=== PATIENT | female | born 1965 | race Caucasian/White ===

== ENCOUNTER 2022-12-23 13:30 | Outpatient (OUT) | payer OTHER, SELFPAY | END 2022-12-23 13:31 | LOC: WC 13:30 | PROVIDERS: PCP Family Medicine; Visit Provider Podiatrist Foot & Ankle Surgery | DX: L97.421 Non-pressure chronic ulcer of left heel and midfoot limited to breakdown of skin (principal) | CPT/HCPCS: 97605 ==

== ENCOUNTER 2023-01-27 11:02 | Outpatient (OUT) | payer OTHER, SELFPAY ==
--- NOTE | 2023-01-27 11:44 | XR_ITS ---
The [address] [address] Patient Name: VASU ABURTO MRN: [id number] date: 1965 Sex: F Assigned Patient Location: Current Patient Location: Accession/Order Number: [id number] Exam Date: 01/27/2023 11:44 Report Date: 01/27/2023 13:57 At the request of: MERCEDES RETANA Procedure: XR ankle LT min 3V EXAM: XR ankle LT min 3V HISTORY: LEFT ANKLE PAIN COMPARISON: 07/17/2022. TECHNIQUE: 3 views left ankle. FINDINGS: Diffuse soft tissue swelling and edema left lower leg and ankle. There is old chronic deformity and angulation of the distal tibia and fibula again seen with slight increase in overall apex medial angulation/lateral displacement of the distal fragments compared to June 2022 but with slightly increased but incomplete bony healing. Thickened soft tissues overlying the medial malleolus. Possible wound over the posterior healed but significantly improved compared to prior. No definite active bone destruction or acute fracture. Severe degenerative change and remodeling at the tibiotalar and subtalar joints and prominent collapse of the midfoot arch/pes planus. XR/XR ankle LT min 3V IMPRESSION: Extensive chronic bony changes as detailed with no acute bony process seen. Diffuse soft tissue wound and edema. CT or MRI could be obtained if indicated. Electronically authenticated by: JHOANA ABARCA Date: 01/27/2023 13:57
== END 2023-01-27 11:03 | disposition home or self-care (01) ==
LOC: WC 11:02
PROVIDERS: PCP Family Medicine; Visit Provider Podiatrist Foot & Ankle Surgery
DX: M25.572 Pain in left ankle and joints of left foot (principal); L97.421 Non-pressure chronic ulcer of left heel and midfoot limited to breakdown of skin; L97.922 Non-pressure chronic ulcer of unspecified part of left lower leg with fat layer exposed
CPT/HCPCS: 11042; 73610

== ENCOUNTER 2023-02-17 13:44 | Outpatient (OUT) | payer OTHER, SELFPAY | END 2023-02-17 13:45 | disposition home or self-care (01) | LOC: WC 13:45 | PROVIDERS: PCP Family Medicine; Visit Provider Podiatrist Foot & Ankle Surgery | DX: L97.922 Non-pressure chronic ulcer of unspecified part of left lower leg with fat layer exposed (principal); M65.072 Abscess of tendon sheath, left ankle and foot; B96.89 Other specified bacterial agents as the cause of diseases classified elsewhere; L97.421 Non-pressure chronic ulcer of left heel and midfoot limited to breakdown of skin | CPT/HCPCS: 10061; 97605 ==

== ENCOUNTER 2023-03-03 13:35 | Outpatient (OUT) | payer OTHER, SELFPAY | END 2023-03-03 13:36 | disposition home or self-care (01) | LOC: WC 13:35 | PROVIDERS: PCP Family Medicine; Visit Provider Podiatrist Foot & Ankle Surgery | DX: L97.421 Non-pressure chronic ulcer of left heel and midfoot limited to breakdown of skin (principal); L97.922 Non-pressure chronic ulcer of unspecified part of left lower leg with fat layer exposed | CPT/HCPCS: 97605 ==

== ENCOUNTER 2023-03-24 13:53 | Outpatient (OUT) | payer OTHER, SELFPAY | END 2023-03-24 13:54 | disposition home or self-care (01) | LOC: WC 13:53 | PROVIDERS: PCP Family Medicine; Visit Provider Podiatrist Foot & Ankle Surgery | DX: L97.421 Non-pressure chronic ulcer of left heel and midfoot limited to breakdown of skin (principal); L97.922 Non-pressure chronic ulcer of unspecified part of left lower leg with fat layer exposed | CPT/HCPCS: 11042; 97605 ==

== ENCOUNTER 2023-04-14 12:25 | Outpatient (REF) | payer OTHER, SELFPAY | END 2023-04-14 12:26 | disposition home or self-care (01) | LOC: LAB 12:25 | PROVIDERS: PCP Family Medicine; Visit Provider Podiatrist Foot & Ankle Surgery | DX: L03.116 Cellulitis of left lower limb (principal); L97.929 Non-pressure chronic ulcer of unspecified part of left lower leg with unspecified severity | CPT/HCPCS: 11042; 87070; 87150; 87186; 97605 ==

== ENCOUNTER 2023-04-14 14:51 | Outpatient (OUT) | payer OTHER, SELFPAY | END 2023-04-14 14:52 | disposition home or self-care (01) | LOC: WC 14:52 | PROVIDERS: PCP Family Medicine; Visit Provider Podiatrist Foot & Ankle Surgery | DX: L97.421 Non-pressure chronic ulcer of left heel and midfoot limited to breakdown of skin (principal); R60.1 Generalized edema | CPT/HCPCS: 11042; 97605 ==

== ENCOUNTER 2023-04-21 15:45 | Outpatient (OUT) | payer OTHER, SELFPAY | END 2023-04-21 15:46 | disposition home or self-care (01) | LOC: WC 15:45 | PROVIDERS: PCP Family Medicine; Visit Provider Podiatrist Foot & Ankle Surgery | DX: L97.421 Non-pressure chronic ulcer of left heel and midfoot limited to breakdown of skin (principal); L97.922 Non-pressure chronic ulcer of unspecified part of left lower leg with fat layer exposed | CPT/HCPCS: 11042; A6213 ==

== ENCOUNTER 2023-04-29 16:05 | Outpatient (OUT) | payer OTHER, SELFPAY | END 2023-04-29 16:06 | disposition home or self-care (01) | LOC: WC 16:05 | PROVIDERS: PCP Family Medicine; Visit Provider Podiatrist Foot & Ankle Surgery | DX: L97.421 Non-pressure chronic ulcer of left heel and midfoot limited to breakdown of skin (principal); L97.922 Non-pressure chronic ulcer of unspecified part of left lower leg with fat layer exposed | CPT/HCPCS: 11042; A6213 ==

== ENCOUNTER 2023-05-21 12:59 | Outpatient (OUT) | payer OTHER, SELFPAY ==
--- NOTE | 2023-05-21 | XR_ITS ---
The [address] [address] Patient Name: VASU ABURTO MRN: [id number] date: 1965 Sex: F Assigned Patient Location: Current Patient Location: Accession/Order Number: [id number] Exam Date: 05/21/2023 13:35 Report Date: 05/22/2023 07:46 At the request of: FUNMI SHABAZZ Procedure: XR foot LT min 3V PROCEDURE: XR ankle LT min 3V, XR tibia fibula LT 2V, XR foot LT min 3V COMPARISON: 01/27/2023 HISTORY: LEFT ANKLE PAIN FINDINGS: BONES:Again demonstrated is severe posttraumatic and degenerative changes of the ankle and foot. There is remote fracture of the distal fibular diaphysis with apex medial angulation of 29 degrees. There is medial subluxation of the tibia in relation to the talus measuring 2.3 cm. Periosteal reaction is observed. Anterior subluxation of the tibia in relation to the talus measuring 2 cm. Severe degenerative changes of the hindfoot with pes planus, marked bony remodeling of the talus and degenerative change. No new fracture or dislocation of the leg foot or ankle. Diffuse demineralization suggests underlying osteopenia. Focal sclerosis of the medial cuneiform, nonspecific SOFT TISSUES:Increased soft tissues likely related to obesity. Extensive vascular calcifications EFFUSION:None visible. OTHER: Negative. XR/XR foot LT min 3V IMPRESSION: No acute fracture Severe degenerative changes as detailed above Electronically authenticated by: SAL ARAIZA Date: 05/22/2023 07:46
--- NOTE | 2023-05-21 | XR_ITS ---
The [address] [address] Patient Name: VASU ABURTO MRN: [id number] date: 1965 Sex: F Assigned Patient Location: Current Patient Location: Accession/Order Number: [id number] Exam Date: 05/21/2023 13:35 Report Date: 05/22/2023 07:46 At the request of: FUNMI SHABAZZ Procedure: XR tibia fibula LT 2V PROCEDURE: XR ankle LT min 3V, XR tibia fibula LT 2V, XR foot LT min 3V COMPARISON: 01/27/2023 HISTORY: LEFT ANKLE PAIN FINDINGS: BONES:Again demonstrated is severe posttraumatic and degenerative changes of the ankle and foot. There is remote fracture of the distal fibular diaphysis with apex medial angulation of 29 degrees. There is medial subluxation of the tibia in relation to the talus measuring 2.3 cm. Periosteal reaction is observed. Anterior subluxation of the tibia in relation to the talus measuring 2 cm. Severe degenerative changes of the hindfoot with pes planus, marked bony remodeling of the talus and degenerative change. No new fracture or dislocation of the leg foot or ankle. Diffuse demineralization suggests underlying osteopenia. Focal sclerosis of the medial cuneiform, nonspecific SOFT TISSUES:Increased soft tissues likely related to obesity. Extensive vascular calcifications EFFUSION:None visible. OTHER: Negative. XR/XR tibia fibula LT 2V IMPRESSION: No acute fracture Severe degenerative changes as detailed above Electronically authenticated by: SAL ARAIZA Date: 05/22/2023 07:46
--- NOTE | 2023-05-21 | XR_ITS ---
The [address] [address] Patient Name: VASU ABURTO MRN: [id number] date: 1965 Sex: F Assigned Patient Location: Current Patient Location: Accession/Order Number: [id number] Exam Date: 05/21/2023 13:35 Report Date: 05/22/2023 07:46 At the request of: FUNMI SHABAZZ Procedure: XR ankle LT min 3V PROCEDURE: XR ankle LT min 3V, XR tibia fibula LT 2V, XR foot LT min 3V COMPARISON: 01/27/2023 HISTORY: LEFT ANKLE PAIN FINDINGS: BONES:Again demonstrated is severe posttraumatic and degenerative changes of the ankle and foot. There is remote fracture of the distal fibular diaphysis with apex medial angulation of 29 degrees. There is medial subluxation of the tibia in relation to the talus measuring 2.3 cm. Periosteal reaction is observed. Anterior subluxation of the tibia in relation to the talus measuring 2 cm. Severe degenerative changes of the hindfoot with pes planus, marked bony remodeling of the talus and degenerative change. No new fracture or dislocation of the leg foot or ankle. Diffuse demineralization suggests underlying osteopenia. Focal sclerosis of the medial cuneiform, nonspecific SOFT TISSUES:Increased soft tissues likely related to obesity. Extensive vascular calcifications EFFUSION:None visible. OTHER: Negative. XR/XR ankle LT min 3V IMPRESSION: No acute fracture Severe degenerative changes as detailed above Electronically authenticated by: SAL ARAIZA Date: 05/22/2023 07:46
== END 2023-05-21 13:00 | disposition home or self-care (01) ==
LOC: WC 12:59
PROVIDERS: PCP Family Medicine; Visit Provider Physician Assistant
DX: L97.421 Non-pressure chronic ulcer of left heel and midfoot limited to breakdown of skin (principal); L97.922 Non-pressure chronic ulcer of unspecified part of left lower leg with fat layer exposed; M79.672 Pain in left foot; M25.572 Pain in left ankle and joints of left foot; M79.662 Pain in left lower leg
CPT/HCPCS: 11043; 29445; 73590; 73610; 73630

== ENCOUNTER 2023-05-25 14:26 | Outpatient (OUT) | payer OTHER, SELFPAY | END 2023-05-25 14:27 | disposition home or self-care (01) | LOC: WC 14:26 | PROVIDERS: PCP Family Medicine; Visit Provider Podiatrist Foot & Ankle Surgery | DX: L97.421 Non-pressure chronic ulcer of left heel and midfoot limited to breakdown of skin (principal); L97.922 Non-pressure chronic ulcer of unspecified part of left lower leg with fat layer exposed | CPT/HCPCS: 29445; A6021 ==

== ENCOUNTER 2023-05-29 09:09 | Outpatient (OUT) | payer OTHER, SELFPAY | END 2023-05-29 09:10 | disposition home or self-care (01) | LOC: WC 09:10 | PROVIDERS: PCP Family Medicine; Visit Provider Podiatrist Foot & Ankle Surgery | DX: L97.421 Non-pressure chronic ulcer of left heel and midfoot limited to breakdown of skin (principal); L97.922 Non-pressure chronic ulcer of unspecified part of left lower leg with fat layer exposed | CPT/HCPCS: 29445; A6213 ==

== ENCOUNTER 2023-06-09 14:01 | Outpatient (OUT) | payer OTHER, SELFPAY ==
--- OUTSIDE RECORDS SUMMARY | 2023-07-07 22:27 | XMS_ITS | CCD ---
Author Name Unknown Address [address] [place] [address] Organization [facility] Care Team Providers Care Business Education Professor Name Role Phone AIDEN ., DR ANDREWS Admitting Unavailable HOY ., DR ANDREWS Consulting Unavailable HOY ., DR ANDREWS Primary Care Unavailable HOY ., DR ANDREWS Attending Unavailable HOY ., DR ANDREWS Consulting Unavailable ADRYANANDER, PETER uSdarshan Procedure Practitioner Unava ilable HOY ., DR ANDREWS Primary Care Unavailable HOY ., DR ANDREWS Admitting Unavailable HOY ., DR ANDREWS Attending Unavailable BAKER ., DR CHANDNI Jasso Consulting Unavailable HOY ., DR ANDREWS Procedure Practitioner Unavail able TAMPA, DR SAL Jones Consulting Unavailable NADERELesvia, DR TALON Rodríguez Consulting Unavailable RAYMON PAREDES Consulting Unavailable ADRYANANDER, MERCEDES Heaton Consulting Unavailable GATJULIO CÉSAR CHOU Consulting Unavailable TIAMANDY Bear Consulting Unavailable TRAE SANCHEZ Consulting Unavailable SHAIKH Cruzito EDOUARD Consulting Unavailable MARILYNN, KILLIAN Consulting Unavailable SAL DALTON Consulting Unavailable REMIGIO, RANGEL Consulting Unavailable SANDY .ASIA Consulting Unavailable GEMSADIE, RIZWAN Consulting Unavailable STACYY ., DR ANDREWS Consulting Unavailable HOY ., DR ANDREWS Primary Care Unavailable HOY ., DR ANDREWS Admitting Unavailable HOY ., DR ANDREWS Attending Unavailable HOY ., DR ANDREWS Consulting Unavailable HOY ., DR ANDREWS Admitting Unavailable HOY ., DR ANDREWS Primary Care Unavailable HOY ., DR ANDREWS Attending Unavailable HOY ., DR ANDREWS Admitting Unavailable HOY ., DR ANDREWS Consulting Unavailable HOY ., DR ANDREWS Primary Care Unavailable HOY ., DR ANDREWS Attending Unavailable MERCEDES RETANA Attending Unavailable MERCEDES RETANA Admitting Unavailable HOY ., DR ANDREWS Primary Care Unavailable HOY ., DR ANDREWS Primary Care Unavailable HOY ., DR ANDREWS Primary Care Unavailable HOY ., DR ANDREWS Admitting Unavailable HOY ., DR ANDREWS Attending Unavailable HOY ., DR ANDREWS Consulting Unavailable MELE, FUNMI Admitting Unavailable HOY ., DR ANDREWS Primary Care Unavailable MELE, FUNMI Attending Unavailable HIGHLANDER, PETER D Admitting Unavailable HIGHLANDER, PETER D Attending Unavailable HOY ., DR ANDREWS Primary Care Unavailable HIGHLANDER, PETER D Attending Unavailable HIGHLANDER, PETER D Admitting Unavailable HOY ., DR ANDREWS Primary Care Unavailable HOY ., DR ANDREWS Primary Care Unavailable HIGHLANDER, PETER D Admitting Unavailable HIGHLANDER, PETER D Attending Unavailable ZIEBER, DR YONIS Lakhani Consulting Unavailable HIGHLANDER, PETER D Consulting Unavailable HIGHLANDER, PETER D Admitting Unavailable HOY ., DR ANDREWS Primary Care Unavailable HIGHLANDER, PETER D Attending Unavailable HIGHLANDER, PETER D Attending Unavailable HIGHLANDER, PETER D Admitting Unavailable HOY ., DR ANDREWS Primary Care Unavailable HIGHLANDER, PETER D Attending Unavailable HIGHLANDER, PETER D Admitting Unavailable HOY ., DR ANDREWS Primary Care Unavailable HOY ., DR ANDREWS Consulting Unavailable HOY ., DR ANDREWS Primary Care Unavailable HOY ., DR ANDREWS Admcheo Unavailable HOY ., DR ANDREWS Attending Unavailable HOY ., DR ANDREWS Consulting Unavailable HOY ., DR ANDREWS Primary Care Unavailable HOY ., DR ANDREWS Admitting Unavailable HOY ., DR ANDREWS Attending Unavailable PAY ., DR MARROQUIN Admitting Unavailable HOY ., DR ANDREWS Primary Care Unavailable PAY ., DR MARROQUIN Attending Unavailable GRECHNY ., SHARON FARNSWORTH Consulting UnavailMERCEDES Fan Consulting Unavailable HOY ., DR ANDREWS Consulting Unavailable HOY ., DR ANDREWS Admcheo Unavailable HOY ., DR ANDREWS Primary Care Unavailable HOY ., DR ANDREWS Attending Unavailable HIGHLANDER, PETER D Admitting Unavailable HIGHLANDER, PETER D Attending Unavailable HOY ., DR ANDREWS Primary Care Unavailable Allergies Allergy Classification Reported Allergen(s) Allergy Type Date of Onset Reaction(s) Facility (1 source) Amoxicillin Drug Allergy 02-21-2017 [facility] (2 sources) Meperidine Drug Allergy 08-01-2013 [facility] (2 sources) Morphine Drug Allergy 08-01-2013 [facility] (2 sources) Penicillins Drug allergy (disorder) 08-01-2013 [facility] (2 sources) Sulfonamides (Antibiotic) Drug allergy (disorder) 08-01-2013 [facility] Problems Active Problems Problem Classification Problem Date Documented Da te Episodic/Chronic Acute and unspecified renal failure (1 source) Acute kidney failure, unspecified; Translations: [ACUTE KIDNEY FAILURE UNSPECIFIED] Onset: 11-05-2022 Episodic Bacterial infection; unspecified site (7 sources) Gas gangrene; Translations: [Enterococcus as the cause of diseases classified elsewhere] Onset: 08-04-2022 Episodic Chronic ulcer of skin (7 sources) Non-pressure chronic ulcer of left heel and midfoot limited to breakdown of skin; Translations: [Non-pressure chronic ulcer of left heel and midfoot with fat layer exposed] Onset: 09-12-2022 Chronic Coronary atherosclerosis and other heart disease (1 source) Atherosclerotic heart disease of [place] coronary artery without angina pectoris; Translations: [ASHD WAINWRIGHT CA W/O ANGINA PECTORIS] Onset: 11-05-2022 Chronic Deficiency and other anemia (1 source) Anemia, unspecified; Translations: [ANEMIA UNSPECIFIED] Onset: 11-05-2022 Episodic Diabetes mellitus with complications (9 sources) Type 2 diabetes mellitus with hyperglycemia; Translations: [Type 2 diabetes mellitus with unspecified complications] Onset: 09-15-2022 Chronic Diabetes mellitus without complication (1 source) Type 2 diabetes mellitus without complications; Translations: [TYPE 2 DM WITHOUT COMPLICATIONS] Onset: 08-26-2022 Chronic Esophageal disorders (1 source) Gastro-esophageal reflux disease without esophagitis; Translations: [GERD WITHOUT ESOPHAGITIS] Onset: 11-05-2022 Chronic Essential hypertension (1 source) Essential (primary) hypertension; Translations: [ESSENTIAL PRIMARY HYPERTENSION] Onset: 11-20-2022 Chronic Infective arthritis and osteomyelitis (except that caused by tuberculosis or sexually transmitted disease) (6 sources) Chronic multifocal osteomyelitis, left ankle and foot; Translations: [Osteomyelitis, unspecified] Onset: 08-24-2022 Chronic Menopausal disorders (1 source) Hormone replacement therapy; Translations: [HORMONE REPLACEMENT THERAPY] Onset: 11-05-2022 Episodic Other aftercare (1 source) salvage determiner (current) use of aspirin; Translations: [SLOT SERVICE SPECIALIST CURRENT USE OF ASPIRIN] Onset: 11-05-2022 Episodic Other aftercare (1 source) half-way (current) use of oral hypoglycemic drugs; Translations: [DETENTION USE ORAL HYPOGLYCEMIC DX] Onset: 11-05-2022 Episodic Other aftercare (1 source) Other nursing home (current) drug therapy; Translations: [OTH SLOT SERVICE SPECIALIST CURRENT DRUG THERAPY] Onset: 11-05-2022 Episodic Other diseases of veins and lymphatics (1 source) Lymphedema, not elsewhere classified; Translations: [LYMPHEDEMA NOT ELSEWHERE CLASSIFIED] Onset: 11-20-2022 Chronic Other gastrointestinal disorders (1 source) Diarrhea, unspecified; Translations: [DIARRHEA UNSPECIFIED] Onset: 11-05-2022 Episodic Other inflammatory condition of skin (1 source) Arthropathic psoriasis, unspecified; Translations: [ARTHROPATHIC PSORIASIS UNSPECIFIED] Onset: 11-05-2022 Chronic Other nutritional; endocrine; and metabolic disorders (1 source) Body mass index (BMI) 40.0-44.9, adult; Translations: [BODY MASS INDEX BMI 40.0-44.9 ADULT] Onset: 11-05-2022 Chronic Other nutritional; endocrine; and metabolic disorders (1 source) Morbid (severe) obesity due to excess calories; Translations: [MORBID SEVERE OBES D/T EXCESS ERNST] Onset: 11-05-2022 Chronic Other skin disorders (1 source) Corns and callosities; Translations: [CORNS AND CALLOSITIES] Onset: 11-20-2022 Episodic Pulmonary heart disease (1 source) Personal history of pulmonary embolism; Translations: [PERSONAL HISTORY PULMONARY EMBOLISM] Onset: 11-05-2022 Episodic Residual codes; unclassified (1 source) Acquired absence of other specified parts of digestive tract; Translations: [ACQ ABSENCE OTH PART DIGESTV TRACT] Onset: 11-05-2022 Episodic Residual codes; unclassified (1 source) Acquired absence of both cervix and uterus; Translations: [ACQUIRED ABSENCE BOTH CERVIX AND UTERUS] Onset: 11-05-2022 Episodic Residual codes; unclassified (1 source) Family history of other diseases of the digestive system; Translations: [FAM HX OTH DISEASES DIGESTIVE SYS] Onset: 11-05-2022 Episodic Residual codes; unclassified (1 source) Family history of malignant neoplasm of breast; Translations: [FAMILY HX MALIG NEOPLASM OF BREAST] Onset: 11-05-2022 Episodic Residual codes; unclassified (1 source) Family history of malignant neoplasm of digestive organs; Translations: [FAM HX MALIG NEOPLASM DIGESTIV ORGN] Onset: 11-05-2022 Episodic Residual codes; unclassified (1 source) Family history of malignant neoplasm of trachea, bronchus and lung; Translations: [[facility] NEOPLSM TRACH BRON LNG] Onset: 11-05-2022 Episodic Residual codes; unclassified (1 source) Family history of malignant neoplasm of other genital organs; Translations: [[facility] NEOPLSM OTH GENIT ORGN] Onset: 11-05-2022 Episodic Residual codes; unclassified (1 source) Family history of malignant neoplasm of other organs or systems; Translations: [[facility] NEOPLASM OTH ORGN/SYS] Onset: 11-05-2022 Episodic Skin and subcutaneous tissue infections (6 sources) Cellulitis, unspecified; Translations: [Local infection of the skin and subcutaneous tissue, unspecified] Onset: 07-28-2022 Episodic Thyroid disorders (1 source) Hypothyroidism, unspecified; Translations: [HYPOTHYROIDISM UNSPECIFIED] Onset: 11-05-2022 Chronic Unclassified (1 source) CONTACT W/AND (SUSP) EXPOS COVID-19; Translations: [CONTACT W/AND (SUSP) EXPOS COVID-19] Onset: 11-05-2022 Unclassified (3 sources) COUGH, UNSPECIFIED; Translations: [COUGH, UNSPECIFIED] Onset: 07-05-2022 Urinary tract infections (3 sources) Urinary tract infection, site not specified; Translations: [UTI SITE NOT SPECIFIED] Onset: 07-17-2022 Episodic Past or Other Problems Problem Classification Problem Date Documented Da te Episodic/Chronic Fever of unknown origin (4 sources) Fever, unspecified; Translations: [FEVER UNSPECIFIED] Onset: 08-22-2022 Episodic Influenza (1 source) Influenza due to unidentified influenza virus with other respiratory manifestations; Translations: [FLU D/T UNIDENT FLU VIR RESP MANIF] Onset: 08-26-2022 Episodic Nausea and vomiting (1 source) Nausea with vomiting, unspecified; Translations: [NAUSEA WITH VOMITING UNSPECIFIED] Onset: 08-26-2022 Episodic Other aftercare (5 sources) salvage determiner (current) use of antibiotics; Translations: [SLOT SERVICE SPECIALIST CURRENT USE ANTIBIOTICS] Onset: 08-22-2022 Episodic Other aftercare (1 source) half-way (current) use of insulin; Translations: [DETENTION CURRENT USE OF INSULIN] Onset: 08-26-2022 Episodic Other connective tissue disease (4 sources) Pain in left foot; Translations: [PAIN IN LEFT FOOT] Onset: 07-08-2022 Episodic Residual codes; unclassified (1 source) Insomnia, unspecified; Translations: [INSOMNIA UNSPECIFIED] Onset: 08-26-2022 Episodic Unclassified (1 source) COUGH, UNSPECIFIED; Translations: [COUGH, UNSPECIFIED] Onset: 06-30-2022 Results Test Name Value Interpretation Reference Range Facil ity ACID FAST SMEAR AND CXon Acid Fast Culture Negative Normal [facility] Comment on above: Result Comment: No a kristin fast bacilli isolated after 6 weeks. Performed By: #### A FB ####[facility] [address] [place] [address]Dr. Wendie Frazier Acid Fast Smear Negative Normal [facility] Comment on above: Performed By: #### A FB ####[facility] [address] [place], [place] [address]Dr. Wendie Frazier AF[employer] Specimen Processing Tissue Grinding Normal [facility] Comment on above: Performed By: #### A FB ####[facility] [address] [place], [place] [address]Dr. Wendie Frazier BUNon 08-28-2022 Urea nitrogen [Mass/Vol] 19.0 mg/dL Critically high 7.0-18 .0 [facility] Comment on above: Performed By: #### B UN, CREA ####[facility] Sn[address] [place], [place] [address]Dr. Wendie Frazier CREATININEon 08-28-2022 Creatinine [Mass/Vol] 1.03 mg/dL Critically high 0.55-1.02 [facility] Comment on above: Performed By: #### B UN, CREA ####[facility] [address] [place], [place] [address]Dr. Wendie Frazier EGFR-AF BAHAMIAN >60 Normal >=60 [facility] Comment on above: Performed By: #### B UN, CREA ####[facility] Bix[address] [place], [place] [address]Dr. Wendie Frazier EGFR-NON AF BAHAMIAN 55 mL/min/1.73m2 Critically low >=60 [facility] Comment on above: Performed By: #### B UN, CREA ####[facility] Opvpwl[address] [place], [place] [address]Dr. Wendie Frazier VANCOMYCIN TROUGHon 08-28-19 VANCOMYCIN TROUGH 19.1 ug/ml Normal 5.0-20.0 [facility] Comment on above: Performed By: #### V ANCT ####[facility] [address] [place], [place] [address]Dr. Wendie Fraizer CULTURE URINEon 08-25-2022 CULTURE URINE Normal [facility] Comment on above: Performed By: #### U RCX ####[facility] [address] [place], [place] [address]Dr. Wendie Frazier BUNon 08-22-2022 Urea nitrogen [Mass/Vol] 20.0 mg/dL Critically high 7.0-18 .0 [facility] Comment on above: Performed By: #### C ARUN, BUN ####[facility] [address] [place], [place] [address]Dr. Wendie Frazier CBC AUTO DIFFon 08-22-2022 BASO # 0.1 103/ul Normal 0.0-0.1 [facility] Comment on above: Performed By: #### C BC ####[facility] Djvvpv[address] [place], [place] [address]Dr. Wendie Freddie Basophils/100 WBC (Bld) 0.9 % Normal 0.2-2.0 [facility] Comment on above: Performed By: #### C BC ####[facility] [address] [place], [place] [address]Dr. Wendie Frazier EO # 0.6 103/ul Normal 0.0-0.7 [facility] Comment on above: Performed By: #### C BC ####[facility] Y[address] [place], [place] [address]Dr. Wendie Freddie Eosinophils/100 WBC (Bld) 6.2 % Normal 0.9-7.0 [facility] Comment on above: Performed By: #### C BC ####[facility] [address] [place] [address]Dr. Wendie Frazier Erythrocyte distribution wid th (RBC) [Ratio] 15.7 % Critically high 11.0-15.0 [facility] Comment on above: Performed By: #### C BC ####[facility] [address] [place] [address]Dr. Wendie Frazier Hematocrit (Bld) [Volume fraction] 36.9 % Normal 3 6.0-48.0 [facility] Comment on above: Performed By: #### C BC ####[facility] Snzzxr[address]ay[address] [place], [place] [address]Dr. Wendie Freddie Hemoglobin (Bld) [Mass/Vol] 11.8 g/dL Critically low 12.0 -16.0 [facility] Comment on above: Performed By: #### C BC ####[facility] [address] [place], [place] [address]DrFacundo Frazier IG # 0.04 10e3/ul Critically high 0.00-0.03 [facility] Comment on above: Performed By: #### C BC ####[facility] U[address] [place], [place] [address]Dr. Wendie Frazier IG % 0.4 % Normal 0.0-0.5 [facility] ospital Comment on above: Performed By: #### C BC ####[facility] [address] [place], [place] [address]Dr. Wendie Frazier LYMPH # 0.8 103/ul Critically low 1.2-3.8 [facility] Comment on above: Performed By: #### C BC ####[facility] Xpq[address] [place], [place] [address]Dr. Wendie Frazier Lymphocytes/100 WBC (Bld) 8.4 % Critically low 20.5-6 0.0 [facility] Comment on above: Performed By: #### C BC ####[facility] [address] [place], [place] [address]Dr. Wendie Frazier MANUAL DIFF REQ NO Normal [facility] Comment on above: Performed By: #### C BC ####[facility] [address] [place] [address]DrFacundo Frazier MCH (RBC) [Entitic mass] 26.7 pg Normal 26.7-34.0 [facility] Comment on above: Performed By: #### C BC ####[facility] F[address] [place], [place] [address]DrFacundo Frazier MCHC (RBC) [Mass/Vol] 32.0 g/dL Normal 29.9-35.2 [facility] Comment on above: Performed By: #### C BC ####[facility] [address] [place], [place] [address]DrFacundo Frazier MCV (RBC) [Entitic vol] 83.5 fL Normal 81.0-99.0 [facility] Comment on above: Performed By: #### C BC ####[facility] [address] [place], [place] [address]DrFacundo Frazier MONO # 0.5 103/ul Normal 0.3-0.8 [facility] ospital Comment on above: Performed By: #### C BC ####[facility] [address] [place], [place] [address]DrFacundo Frazier Monocytes/100 WBC (Bld) 5.1 % Normal 1.7-12.0 [facility] Comment on above: Performed By: #### C BC ####[facility] [address] [place], [place] [address]DrFacundo Frazier NEUT # 7.6 103/ul Critically high 1.4-6.5 [facility] Comment on above: Performed By: #### C BC ####[facility] [address] [place], [place] [address]DrFacundo Frazier Neutrophils/100 WBC (Bld) 79.1 % Critically high 43.0- 75.0 [facility] Comment on above: Performed By: #### C BC ####[facility] [address] [place], [place] [address]DrFacundo Frazier Platelet mean volume (Bld) [ Entitic vol] 10.5 fL Normal 9.5-13.5 [facility] pital Comment on above: Performed By: #### C BC ####[facility] [address] [place] [address]Dr. Wendie Frazier PLT 270 103/ul Normal 150-450 [facility] ospital Comment on above: Performed By: #### C BC ####[facility] [address] [place], [place] [address]Dr. Wendie Frazier RBC 4.42 106/ul Normal 4.20-5.40 [facility] Comment on above: Performed By: #### C BC ####[facility] [address] [place], [place] [address]Dr. Wendie Frazier WBC 9.7 103/ul Normal 4.0-11.0 [facility] ostal Comment on above: Performed By: #### C BC ####[facility] O[address] [place], [place] [address]Dr. Wendie Frazier CREATININEon 08-22-2022 Creatinine [Mass/Vol] 0.94 mg/dL Normal 0.55-1.02 [facility] Comment on above: Performed By: #### Carlos DIAS BUN ####[facility] [address] [place], [place] [address]Dr. Wendie Frazier EGFR-AF BAHAMIAN >60 Normal >=60 [facility] Comment on above: Performed By: #### Carlos DIAS BUN ####[facility] [address] [place], [place] [address]Dr. Wendie Frazier EGFR-NON AF BAHAMIAN >60 Normal >=60 [facility] Comment on above: Performed By: #### Carlos DIAS BUN ####[facility] On[address] [place], [place] [address]Dr. Wendie Frazier CULTURE BLOODon 08-22-2022 Microscopic examination of blood, culture Culture Observations: NO GROWTH AT 5 DAYS. Normal [facility] Comment on above: Performed By: #### B LDCX2 ####[facility] [address] [place], [place] [address]Dr. Wendie Frazier Performed By: #### B LDCX1 ####[facility] [address] [place] [address]Dr. Wendie Frazier Covid-19 PCR (CVDTB)on SARS-CoV-2 (COVID-19) RNA LOUISE+probe Ql (Unsp spec) Not detected Normal NOT DETECTED [facility] Comment on above: Result Comment: When diagnostic testing is negative, the possibility of a false negative should be considered inthe context of a patient's recent exposures and the presence of clinical signs and symptomsconsistent with SARS-CoV-2.This test is not yet approved or cleared by the [place] FDA. When there are no FDA-approved or cleared tests available, and other criteria are met, FDA can make tests available under an emergency access mechanism called an Emergency Use Authorization (EUA). The EUA for this test is supported by the [place] of Health and Human Service's declaration that circumstances exist to justify the emergency use of in vitro diagnostics for the detection and/or diagnosis of the virus that causes COVID-19. This EUA will remain in effect for the duration of the COVID-19 declaration justifying emergency of IVDs, unless it is terminated or revoked by the FDA (after which the test may no longer be used). Performed By: #### C VDTBH ####[facility] [address] [place] [address]Dr. Wendie Frazier ER URINE PROFILEon 3 Bilirubin Ql (U) Negative Normal NEGATIVE [facility] Comment on above: Performed By: #### WILFREDO FITZPATRICK ####[facility] [address] [place] [address]Dr. Wendie Freddie Clarity (U) CLEAR Normal CLEAR [facility] Comment on above: Performed By: #### WILFREDO FITZPATRICK ####[facility] [address] [place] [address]Dr. Wendie Frazier Color (U) LT. YELLOW Normal YELLOW [facility] ospital Comment on above: Performed By: #### WILFREDO FITZPATRICK ####[facility] [address] [place] [address]Dr. Wendie SANCHEZD A micrscopic examina tion will be performed if indicated. Normal [facility] l Comment on above: Performed By: #### WILFREDO FITZPATRICK ####[facility] [address] [place] [place] [address]Dr. Wendie Frazier Glucose Ql (U) >1000 Abnormal NEGATIVE [facility] Comment on above: Performed By: #### WILFREDO FITZPATRICK ####[facility] [address] [place], [place] [address]Dr. Wendie Frazier Hemoglobin Ql (U) SMALL Abnormal NEGATIVE [facility] Comment on above: Performed By: #### WILFREDO FITZPATRICK ####[facility] [address] [place], [place] [address]Dr. Wendie Frazier Ketones Ql (U) Negative Normal NEGATIVE [facility] Comment on above: Performed By: #### WILFREDO FITZPATRICK ####[facility] [address] [place], [place] [address]Dr. Wendie Frazier LEUKOCYTES Negative Normal NEGATIVE [facility] ospital Comment on above: Performed By: #### WILFREDO FITZPATRICK ####[facility] [address] [place], [place] [address]Dr. Wendie Frazier Nitrite Ql (U) Negative Normal NEGATIVE [facility] Comment on above: Performed By: #### WILFREDO FITZPATRICK ####[facility] [address] [place], [place] [address]Dr. Wendie Frazier pH (U) 5.5 [pH] Normal 5-9 [facility] Comment on above: Performed By: #### WILFREDO FITZPATRICK ####[facility] [address] [place], [place] [address]Dr. Wendie Frazier Protein (U) [Mass/Vol] 100 mg/dL Abnormal NEGATIVE/ TRA CE [facility] Comment on above: Performed By: #### WILFREDO FITZPATRICK ####[facility] Jfhpbqbfqz[address] [place], [place] [address]Dr. Wendie Frazier SPEC GRAVITY 1.020 Normal 1.005-<=1.025 [facility] Comment on above: Performed By: #### WILFREDO FITZPATRICK ####[facility] Qkcxwxmnnx[address] [place] [address]Dr. Wendie Frazier UR MICRO IND INDICATED Normal [facility] Comment on above: Performed By: #### WILFREDO FITZPATRICK ####[facility] Mfigeudrvq101[address] [place] [address]Dr. Wendie Frazier Urobilinogen Qn (U) 0.2 {Ricky'U}/dL Normal 0.2 - 1. 0 [facility] Comment on above: Performed By: #### WILFREDO FITZPATRICK ####[facility] Pwuglzotcc[address] [place], [place] [address]Dr. Wendie Frazier INFLUENZA A AND B AGon 08-22 INFLUANEGH SEE BELOW Normal [facility] Comment on above: Result Comment: Nega tive for Flu A protein angiten. Infection due to Flu A cannot be ruled out. Flu A angiten in the sample may be below the detection limit of the test. Performed By: #### I NFLUAB ####[facility] Udoxwtqfea9[address] [place], [place] [address]Dr. Wendie Frazier INFLUBNEGH SEE BELOW Normal The [facility] ostal Comment on above: Result Comment: Nega tive for Flu B protein antigen. Infection due to Flu B cannot be ruled out. Flu B antigen in the sample may be below the detection limit of the test. Performed By: #### I NFLUAB ####[facility] Mxwsinyeqk9[address] [place], [place] [address]Dr. Wendie Frazier INFLUENZA A AG Negative Normal NEGATIVE SEE COMMENT The [facility] Comment on above: Performed By: #### I NFLUAB ####[facility] Aoehyzmatk1123[address] [place], [place] [address]Dr. Wendie Frazier INFLUENZA B AG Negative Normal NEGATIVE SEE COMMENT The [facility] Comment on above: Performed By: #### I NFLUAB ####[facility] Lprwvelrey040[address] [place] [address]Dr. Wendie Frazier LACTATE/LACTIC ACIDon 2022 Lactate [Moles/Vol] 1.0 mmol/L Normal 0.4-1.9 [facility] Comment on above: Performed By: #### L ACT ####[facility] Acxikocyyb[address] [place] [address]Dr. Wendie Frazier PROF 14(COMP METB)on 023 Albumin [Mass/Vol] 3.2 g/dL Critically low 3.4-5.0 [facility] Comment on above: Performed By: #### C MP ####[facility] Qukqedapiq65[address] [place], [place] [address]Dr. Wendie Frazier Albumin/Globulin [Mass ratio] 0.8 {ratio} Normal [facility] Comment on above: Performed By: #### C MP ####[facility] Gbsratlikg8[address] [place], [place] [address]Dr. Wendie Frazier ALP [Catalytic activity/Vol] 110 U/L Normal 46-116 [facility] Comment on above: Performed By: #### C MP ####[facility] Ltaxfxchtx2[address] [place], [place] [address]Dr. Wendie Frazier ALT [Catalytic activity/Vol] 18 U/L Normal 14-59 [facility] Comment on above: Performed By: #### C MP ####[facility] Fdrcfamrim35[address] [place], [place] [address]Dr. Wendie Frazier Anion gap [Moles/Vol] 11.9 mmol/L Normal [facility] Comment on above: Performed By: #### C MP ####[facility] Selsytbcqp37[address] [place] [address]Dr. Wendie Frazier AST [Catalytic activity/Vol] 15 U/L Normal 15-37 [facility] Comment on above: Performed By: #### C MP ####[facility] Ykwqredekk[address] [place], [place] [address]Dr. Wendie Frazier Bilirubin [Mass/Vol] 1.0 mg/dL Normal 0.2-1.0 [facility] Comment on above: Performed By: #### C MP ####[facility] Zkcdwzctwr7868 [place] [id number]. Wendie Frazier Calcium [Mass/Vol] 9.2 mg/dL Normal 8.5-10.1 [facility] Comment on above: Performed By: #### C MP ####[facility] Qocscjjmhb[address] [place] [address]Dr. Wendie Frazier Chloride [Moles/Vol] 102 mmol/L Normal 98-107 [facility] Comment on above: Performed By: #### C MP ####[facility] Emeiyapmpa2690 [place] [address]Dr. Wendie Frazier CO2 [Moles/Vol] 28.3 mmol/L Normal 21.0-32.0 [facility] Comment on above: Performed By: #### C MP ####[facility] Qmogdzkrzd3674 [place] [address]Dr. Wendie Frazier Creatinine [Mass/Vol] 1.07 mg/dL Critically high 0.55-1.02 [facility] Comment on above: Performed By: #### C MP ####[facility] Snrabembwt7967 [place] [address]Dr. Wendie Frazier EGFR-AF BAHAMIAN >60 Normal >=60 [facility] Comment on above: Performed By: #### C MP ####[facility] Wicaeyuaqg20[address] [place] [address]Dr. Wendie Freddie EGFR-NON AF BAHAMIAN 52 mL/min/1.73m2 Critically low >=60 [facility] Comment on above: Performed By: #### C MP ####[facility] Jkjjewuahm5425 [place] [address]Dr. Wendie Frazier Globulin (S) [Mass/Vol] 4.0 g/dL Normal [facility] Comment on above: Performed By: #### C MP ####[facility] Ymjzqllwcf2180 [place] [address]Dr. Wendie Frazier Glucose [Mass/Vol] 160 mg/dL Critically high 74-106 [facility] Comment on above: Performed By: #### C MP ####[facility] Kuqypzkiuh23[address] [place] [address]Dr. Wendie Frazier Potassium [Moles/Vol] 3.2 mmol/L Critically low 3.5-5.1 [facility] Comment on above: Performed By: #### C MP ####[facility] Dwdujaolzn4672 [place] [address]Dr. Wendie Frazier Protein [Mass/Vol] 7.2 g/dL Normal 6.4-8.2 The [facility] Comment on above: Performed By: #### C MP ####[facility] Tsmgqlgpmy3254 [place] [address]Dr. Wendie Frazier Sodium [Moles/Vol] 139 mmol/L Normal 136-145 [facility] Comment on above: Performed By: #### C MP ####[facility] Hfvhoymbyb5224 [place] [address]Dr. Wendie Frazier Urea nitrogen [Mass/Vol] 20.0 mg/dL Critically high 7.0-18 .0 [facility] Comment on above: Performed By: #### C MP ####[facility] Oytlxbwniy38[address] [place] [address]Dr. Wendie Frazier Urea nitrogen/Creatinine [Mass ratio] 18.7 mg/mg Normal [facility] Comment on above: Performed By: #### C MP ####[facility] Nndfwfzddy6081 [place] [address]Dr. Wendie Freddie URINE MICROSCOPIC ONLYon BACTERIA TRACE Abnormal NONE SEEN The [facility]ital Comment on above: Performed By: #### PETRONA FITZPATRICKRO ####[facility] Wvrizhwlla8504 [place] [address]Dr. Wendie Frazier Bacteria identified Cx Nom (U) INDICATED Normal [facility] Comment on above: Performed By: #### WILFREDO FITZPATRICK ####[facility] Jhoczoenrn3199 [place] [address]Dr. Wendie Frazier CAST NONE SEEN Normal NONE SEEN The [facility] o[facility]ital Comment on above: Performed By: #### WILFREDO FITZPATRICK ####[facility] Aimvgssqdd7591 [place] [phone]. Zeniaulysses Frazier Crystals LM Nom (Urine sed) NONE SEEN Normal NONE SEE N [facility] Comment on above: Performed By: #### WILFREDO FITZPATRICK ####[facility] Nkmgwlrala5195 [place] [phone]. Zeniaulysses Frazier Epithelial cells LM Ql (Urine sed) FEW Abnormal N ONE SEEN /RARE [facility] Comment on above: Performed By: #### WILFREDO FITZPATRICK ####[facility] Pneczgjlxg3650 [place], [place] [address]Dn. Zeniaulysses Frazier MUCOUS NONE SEEN Normal NONE SEEN [facility] Comment on above: Performed By: #### WILFREDO FITZPATRICK ####[facility] Vdidxeqcxb0472 [place] [phone]. Wendie Frazier RBC 2-5 Abnormal 0-2 [facility]ital Comment on above: Performed By: #### WILFREDO FITZPATRICK ####[facility] Fysaggnzpm5310 [place] [address]Dr. Wendie Frazier WBC 5-10 Abnormal NONE SEEN [facility] Comment on above: Performed By: #### WILFREDO FITZPATRICK ####[facility] Mjwoxwxfqt8104 [place] [address]Dr. Wendie Frazier VANCOMYCIN TROUGHon 08-22-19 23 VANCOMYCIN TROUGH 19.2 ug/ml Normal 5.0-20.0 [facility] Comment on above: Performed By: #### V ANCT ####[facility] Ezgtvytesu[address] [place], [place] [address]Dr. Zeniaulysses Frazier XR CHEST 1 Von 08-22-2022 XR CHEST 1 V Normal [facility] VANCOMYCIN TROUGHon 08-19-19 23 VANCOMYCIN TROUGH 20.5 ug/ml Critically high 5.0-20.0 [facility] Comment on above: Performed By: #### V ANCT ####[facility] Qsxaarfyib[address] [place], [place] [address]Dr. Wendie Frazier FUNGAL CULTUREon 08-15-2022 Fungus (Mycology) Culture Final report Normal [facility] Comment on above: Performed By: #### C XFUN ####[facility] Klfdicvrpw58[address] [place], [place] [address]Dr. Wendie Frazier Fungus Stain Final report Normal [facility] Comment on above: Performed By: #### C XFUN ####[facility] Zjvgngioie0313[address] [place], [place] [address]Dr. Wendie Frazier Result 1 Comment Normal [facility] o[facility]ital Comment on above: Result Comment: WILLIE/ Calcofluor preparation: no fungus observed. Performed By: #### C XFUN ####[facility] Pcctgwajow[address] [place], [place] [address]Dr. Wendie Frazier Result Comment: No y east or mold isolated after 4 weeks. BUNon 08-11-2022 Urea nitrogen [Mass/Vol] 23.0 mg/dL Critically high 7.0-18 .0 [facility] Comment on above: Performed By: #### Carlos DIAS BUN ####[facility] Hbqxjxxhsl25[address] [place], [place] [address]Dr. Wendie Frazier CREATININEon 08-11-2022 Creatinine [Mass/Vol] 1.09 mg/dL Critically high 0.55-1.02 [facility] Comment on above: Performed By: #### Carlos DIAS BUN ####[facility] Cmkhwgkvna037[address] [place], [place] [address]Dr. Wendie Frazier EGFR-AF BAHAMIAN >60 Normal >=60 [facility] Comment on above: Performed By: #### C ARUN, BUN ####[facility] Jcrcigdsda[address] [place], [place] [address]Dr. Wendie Frazier EGFR-NON AF BAHAMIAN 51 mL/min/1.73m2 Critically low >=60 [facility] Comment on above: Performed By: #### C ARUN BUN ####[facility] Hsbgxphyph66[address] [place], [place] [address]Dr. Wendie Frazier VANCOMYCIN TROUGHon 08-11-19 VANCOMYCIN TROUGH 20.6 ug/ml Critically high 5.0-20.0 [facility] Comment on above: Performed By: #### V ANCT ####[facility] Mxhvoaehci1053 [place] [id number]. Wendie Frazier BUNon 08-06-2022 Urea nitrogen [Mass/Vol] 19.0 mg/dL Critically high 7.0-18 .0 [facility] Comment on above: Performed By: #### C ARUN, BUN ####[facility] Yhxrhgpcwg54[address] [place], [place] [address]Dr. Wendie Frazier CREATININEon 08-06-2022 Creatinine [Mass/Vol] 0.90 mg/dL Normal 0.55-1.02 [facility] Comment on above: Performed By: #### C ARUN, BUN ####[facility] Atofmlgtfm[address] [place], [place] [address]Dr. Wendie Frazier EGFR-AF BAHAMIAN >60 Normal >=60 [facility] Comment on above: Performed By: #### C ARUN, BUN ####[facility] Uuipcvdiye3317[address] [place], [place] [address]Dr. Wendie Frazier EGFR-NON AF BAHAMIAN >60 Normal >=60 [facility] Comment on above: Performed By: #### C ARUN, BUN ####[facility] Yymjwqpeyf16[address] [place], [place] [address]Dr. Wendie Frazier VANCOMYCIN TROUGHon 08-06-19 VANCOMYCIN TROUGH 18.5 ug/ml Normal 5.0-20.0 [facility] Comment on above: Performed By: #### V ANCT ####[facility] Binddviquh1027[address] [place], [place] [address]Dr. Wendie Frazier BUNon 08-04-2022 Urea nitrogen [Mass/Vol] 16.0 mg/dL Normal 7.0-18.0 [facility] Comment on above: Performed By: #### B UN CREA ####[facility] Jgrqmcetne45[address] [place], [place] [address]Dr. Wendie Frazier CREATININEon 08-04-2022 Creatinine [Mass/Vol] 0.80 mg/dL Normal 0.55-1.02 [facility] Comment on above: Performed By: #### B UN, CREA ####[facility] Myoinssrnq3162 [place] [id number]. Wendie Frazier EGFR-AF BAHAMIAN >60 Normal >=60 [facility] Comment on above: Performed By: #### B UN, CREA ####[facility] Hsgzopgbyd79[address] [place], [place] [address]Dr. Wendie Frazier EGFR-NON AF BAHAMIAN >60 Normal >=60 [facility] Comment on above: Performed By: #### B UN, CREA ####[facility] Rycjjuvydz[address] [place], [place] [address]Dr. Wendie Frazier VANCOMYCIN TROUGHon 08-04-19 23 VANCOMYCIN TROUGH 20.1 ug/ml Critically high 5.0-20.0 [facility] Comment on above: Performed By: #### V ANCT ####[facility] Yvlhdwxjpw3216[address] [place], [place] [address]Dr. Wendie Frazier BUNon 07-28-2022 Urea nitrogen [Mass/Vol] 18.0 mg/dL Normal 7.0-18.0 [facility] Comment on above: Performed By: #### C ARUN, BUN ####[facility] Rftkuptefy[address] [place], [place] [address]Dr. Wendie Frazier CREATININEon 07-28-2022 Creatinine [Mass/Vol] 1.00 mg/dL Normal 0.55-1.02 [facility] Comment on above: Performed By: #### C ARUN, BUN ####[facility] Jrmhbvnuln3146[address] [place], [place] [address]Dr. Wendie Frazier EGFR-AF BAHAMIAN >60 Normal >=60 [facility] Comment on above: Performed By: #### C ARUN, BUN ####[facility] Hlcxtnvvbx35[address] [place], [place] [address]Dr. Wendie Frazier EGFR-NON AF BAHAMIAN 57 mL/min/1.73m2 Critically low >=60 [facility] Comment on above: Performed By: #### C ARUN, BUN ####[facility] Qbohzlnssc34[address] [place], [place] [address]Dr. Wendie Frazier VANCOMYCIN TROUGHon 07-28-19 23 VANCOMYCIN TROUGH 19.5 ug/ml Normal 5.0-20.0 [facility] Comment on above: Performed By: #### V ANCT ####[facility] Ukklfescdd1259[address] [place], [place] [address]Dr. Wendie Frazier CBC AUTO DIFFon 07-24-2022 BASO # 0.1 103/ul Normal 0.0-0.1 [facility] osp[facility] Comment on above: Performed By: #### C BC ####[facility] Idqmiaozym5519[address] [place], [place] [address]Dr. Zeniaulysses Frazier Basophils/100 WBC (Bld) 0.7 % Normal 0.2-2.0 [facility] Comment on above: Performed By: #### C BC ####[facility] Ojkwcdcdnf7475[address] [place], [place] [address]Dr. Wendie Frazier EO # 0.1 103/ul Normal 0.0-0.7 [facility] Comment on above: Performed By: #### C BC ####[facility] Marghiqtcy1449[address] [place], [place] [address]Dr. Wendie Frazier Eosinophils/100 WBC (Bld) 1.9 % Normal 0.9-7.0 [facility] Comment on above: Performed By: #### C BC ####[facility] Ujablxsdhj4818[address] [place], [place] [address]Dr. Wendie Frazier Erythrocyte distribution wid th (RBC) [Ratio] 15.7 % Critically high 11.0-15.0 [facility] pital Comment on above: Performed By: #### C BC ####[facility] Ckenlexbbb7[address] [place], [place] [address]Dr. Wendie Frazier Hematocrit (Bld) [Volume fraction] 29.7 % Critically low 36.0-48.0 [facility] pital Comment on above: Performed By: #### C BC ####[facility] Sodgrgkzlg4[address] [place], [place] [address]Dr. Zeniaulysses Frazier Hemoglobin (Bld) [Mass/Vol] 9.5 g/dL Critically low 12.0 -16.0 [facility] Comment on above: Performed By: #### C BC ####[facility] Zgmmhlkrme27[address] [place] [address]Dr. Wendie Frazier IG # 0.08 10e3/ul Critically high 0.00-0.03 [facility] Comment on above: Performed By: #### C BC ####[facility] Cabmyfeypy24[address] [place] [address]Dr. Wendie Frazier IG % 1.1 % Critically high 0.0-0.5 [facility] Comment on above: Performed By: #### C BC ####[facility] Vtxhldrcmy5425 [place] [address]Dr. Wendie Freddie LYMPH # 1.7 103/ul Normal 1.2-3.8 [facility] Comment on above: Performed By: #### C BC ####[facility] Ufvkppfvxv3432 [place] [address]Dr. Zeniaulysses Frazier Lymphocytes/100 WBC (Bld) 23.8 % Normal 20.5-60.0 [facility] Comment on above: Performed By: #### C BC ####[facility] Punxadoblb7[address] [place], [place] [address]Dr. Zeniaulysses Frazier MANUAL DIFF REQ NO Normal [facility] Comment on above: Performed By: #### C BC ####[facility] Shfqzakoec54[address] [place] [address]Dr. Wendie Frazier MCH (RBC) [Entitic mass] 26.1 pg Critically low 26.7-34 .0 [facility] Comment on above: Performed By: #### C BC ####[facility] Xsczgfjazl9713 [place] [address]Dr. Wendie Freddie MCHC (RBC) [Mass/Vol] 32.0 g/dL Normal 29.9-35.2 [facility] Comment on above: Performed By: #### C BC ####[facility] Abrhyfbdyf6972 [place] [address]Dr. Wendie Freddie MCV (RBC) [Entitic vol] 81.6 fL Normal 81.0-99.0 [facility] Comment on above: Performed By: #### C BC ####[facility] Vyffmvzwsb0957 [place] [address]Dr. Wendie Frazier MONO # 0.8 103/ul Normal 0.3-0.8 [facility] ospital Comment on above: Performed By: #### C BC ####[facility] Wlieqjpilz1006 [place] [address]Dr. Wendie Frazier Monocytes/100 WBC (Bld) 10.8 % Normal 1.7-12.0 [facility] Comment on above: Performed By: #### C BC ####[facility] Vziouezfoz3270 [place] [address]Dr. Wendie Frazier NEUT # 4.5 103/ul Normal 1.4-6.5 [facility] ospital Comment on above: Performed By: #### C BC ####[facility] Vleougymgx[address] [place], [place] [address]Dr. Wendie Frazier Neutrophils/100 WBC (Bld) 61.7 % Normal 43.0-75.0 [facility] Comment on above: Performed By: #### C BC ####[facility] Kxofydutrk2536 [place] [address]Dr. Wendie Frazier Platelet mean volume (Bld) [Entitic vol] 8.9 fL Critically low 9.5-13.5 [facility] pital Comment on above: Performed By: #### C BC ####[facility] Qgnrzxfgja7921 [place] [address]Dr. Wendie Frazier PLT 353 103/ul Normal 150-450 [facility] ospital Comment on above: Performed By: #### C BC ####[facility] Yfcdhgbpve9900 [place] [address]Dr. Wendie Frazier RBC 3.64 106/ul Critically low 4.20-5.40 [facility] Comment on above: Performed By: #### C BC ####[facility] Bxegdqretj0627 [place] [address]Dr. Wendie Frazier WBC 7.2 103/ul Normal 4.0-11.0 [facility] ospital Comment on above: Performed By: #### C BC ####[facility] Zewocrzigz2707 [place] [address]Dr. Wendie Frazier POINT OF CARE GLUCOSEon Glucose [Mass/Vol] 221 mg/dL Critically high 74-106 [facility] Comment on above: Performed By: #### P OCGLUC ####[facility] Hueiancebz6665 [place] [address]Dr. Wendie Frazier Glucose [Mass/Vol] 237 mg/dL Critically high 74-106 [facility] Comment on above: Performed By: #### P OCGLUC ####[facility] Ohlsmhpfde0753 [place] [address]Dr. Wendie Frazier PROF 14(COMP METB)on 023 Albumin [Mass/Vol] 1.9 g/dL Critically low 3.4-5.[address] [facility] Comment on above: Performed By: #### C MP ####[facility] Wmvhhhbioa1640 [place] [address]Dr. Wendie Frazier Albumin/Globulin [Mass ratio] 0.5 {ratio} Normal [facility] Comment on above: Performed By: #### C MP ####[facility] Qoxixzicvw8325 [place] [address]Dr. Wendie Frazier ALP [Catalytic activity/Vol] 111 U/L Normal 46-116 [facility] Comment on above: Performed By: #### C MP ####[facility] Tionqsxuuc8217 [place] [address]Dr. Wendie Frazier ALT [Catalytic activity/Vol] 17 U/L Normal 14-59 [facility] Comment on above: Performed By: #### C MP ####[facility] Pqabryonxq2696 [place] [address]Dr. Wendie Frazier Anion gap [Moles/Vol] 9.2 mmol/L Normal [facility] Comment on above: Performed By: #### C MP ####[facility] Smpfkjayib0807 [place] [address]Dr. Wendie Frazier AST [Catalytic activity/Vol] 15 U/L Normal 15-37 [facility] Comment on above: Performed By: #### C MP ####[facility] Lmjhljqypd1021 [place] [address]Dr. Wendie Frazier Bilirubin [Mass/Vol] 0.6 mg/dL Normal 0.2-1.0 [facility] Comment on above: Performed By: #### C MP ####[facility] Btthhlrytg1057 [place] [address]Dr. Wendie Frazier Calcium [Mass/Vol] 8.4 mg/dL Critically low 8.5-10.[address] [facility] Comment on above: Performed By: #### C MP ####[facility] Ojmnxfcekm216[address] [place], [place] [address]Dr. Wendie Frazier Chloride [Moles/Vol] 102 mmol/L Normal 98-107 [facility] Comment on above: Performed By: #### C MP ####[facility] Qjwlxntwil20[address] [place], [place] [address]Dr. Wendie Frazier CO2 [Moles/Vol] 29.1 mmol/L Normal 21.0-32.0 [facility] Comment on above: Performed By: #### C MP ####[facility] Fkurmzvuax54[address] [place], [place] [address]Dr. Wendie Frazier Creatinine [Mass/Vol] 0.89 mg/dL Normal 0.55-1.02 [facility] Comment on above: Performed By: #### C MP ####[facility] Kzobldevot[address] [place], [place] [address]Dr. Wendie Freddie EGFR-AF BAHAMIAN >60 Normal >=60 [facility] Comment on above: Performed By: #### C MP ####[facility] Almksvodpw0[address] [place], [place] [address]Dr. Wendie Freddie EGFR-NON AF BAHAMIAN >60 Normal >=60 [facility] Comment on above: Performed By: #### C MP ####[facility] Aajvmjyquy[address] [place], [place] [address]Dr. Wendie Frazier Globulin (S) [Mass/Vol] 3.6 g/dL Normal [facility] Comment on above: Performed By: #### C MP ####[facility] Eraxfcpeiq8399 [place] [address]Dr. Wendie Frazier Glucose [Mass/Vol] 204 mg/dL Critically high 74-106 [facility] Comment on above: Performed By: #### C MP ####[facility] Uwyheultba8302 [place] [address]Dr. Wendie Frazier Potassium [Moles/Vol] 3.3 mmol/L Critically low 3.5-5.1 [facility] Comment on above: Performed By: #### C MP ####[facility] Fzzzmazmsg9197 [place] [id number]. Wendie Frazier Protein [Mass/Vol] 5.5 g/dL Critically low 6.4-8.2 [facility] Comment on above: Performed By: #### C MP ####[facility] Jshdmhlbpb5092 [place] [address]Dr. Wendie Frazier Sodium [Moles/Vol] 137 mmol/L Normal 136-145 [facility] Comment on above: Performed By: #### C MP ####[facility] W[address]ut[address] [place], [place] [id number]. Wendie Frazier Urea nitrogen [Mass/Vol] 16.0 mg/dL Normal 7.0-18.0 [facility] Comment on above: Performed By: #### C MP ####[facility] [address]qu[address] [place] [id number]. Wendie Frazier Urea nitrogen/Creatinine [Mass ratio] 18.0 mg/mg Normal [facility] Comment on above: Performed By: #### C MP ####[facility] Lqankwdoas[address] [place], [place] [address]Dr. Wendie Frazier CBC AUTO DIFFon 07-23-2022 BASO # 0.1 103/ul Normal 0.0-0.1 [facility] Comment on above: Performed By: #### C BC ####[facility] Isedebnwsa[address] [place] [id number]. Wendie Frazier Basophils/100 WBC (Bld) 0.7 % Normal 0.2-2.0 [facility] Comment on above: Performed By: #### C BC ####[facility] Wnqbnvxhfx79[address] [place] [id number]. Wendie Frazier EO # 0.2 103/ul Normal 0.0-0.7 [facility] Comment on above: Performed By: #### C BC ####[facility] Zknwymntru[address] [place], [place] [address]Dr. Wendie Frazier Eosinophils/100 WBC (Bld) 2.3 % Normal 0.9-7.0 [facility] Comment on above: Performed By: #### C BC ####[facility] Kwmqylpyvf[address] [place], [place] [address]Dr. Wendie Frazier Erythrocyte distribution wid th (RBC) [Ratio] 15.6 % Critically high 11.0-15.0 [facility] Comment on above: Performed By: #### C BC ####[facility] Ieqarsjxzr[address] [place], [place] [address]Dr. Wendie Frazier Hematocrit (Bld) [Volume fraction] 30.3 % Critically low 36.0-48.0 [facility] Comment on above: Performed By: #### C BC ####[facility] Oqwoqszozw[address] [place], [place] [address]Dr. Wendie Frazier Hemoglobin (Bld) [Mass/Vol] 9.7 g/dL Critically low 12.0 -16.0 [facility] Comment on above: Performed By: #### C BC ####[facility] Oxkhqhtwuf[address] [place], [place] [address]Dr. Wendie Frazier IG # 0.13 10e3/ul Critically high 0.00-0.03 [facility] Comment on above: Performed By: #### C BC ####[facility] Qjgurwsrzs[address] [place], [place] [address]Dr. Wendie Frazier IG % 1.7 % Critically high 0.0-0.5 [facility] Comment on above: Performed By: #### C BC ####[facility] Sjmhhgdzty16[address] [place], [place] [address]Dr. Wendie Frazier LYMPH # 1.6 103/ul Normal 1.2-3.8 [facility] Comment on above: Performed By: #### C BC ####[facility] [address]rszyw[address] [place] [address]Dr. Wendie Frazier Lymphocytes/100 WBC (Bld) 21.8 % Normal 20.5-60.0 [facility] Comment on above: Performed By: #### C BC ####[facility] Opigmknvpb[address] [place] [address]Dr. Wendie Frazier MANUAL DIFF REQ NO Normal [facility] Comment on above: Performed By: #### C BC ####[facility] Jgivxjzpln[address] [place] [id number]. Wendie Frazier MCH (RBC) [Entitic mass] 26.1 pg Critically low 26.7-34 .0 [facility] Comment on above: Performed By: #### C BC ####[facility] Vchtbxprcq8[address] [place], [place] [address]Dr. Wendie Frazier MCHC (RBC) [Mass/Vol] 32.0 g/dL Normal 29.9-35.2 [facility] Comment on above: Performed By: #### C BC ####[facility] Qtwcjcdmuq10[address] [place], [place] [address]Dr. Wendie Frazier MCV (RBC) [Entitic vol] 81.5 fL Normal 81.0-99.0 [facility] Comment on above: Performed By: #### C BC ####[facility] Jdnlbwkvty8[address] [place], [place] [address]Dr. Wendie Frazier MONO # 0.7 103/ul Normal 0.3-0.8 [facility] Comment on above: Performed By: #### C BC ####[facility] Kkboixwxgn3[address] [place], [place] [address]Dr. Wendie Frazier Monocytes/100 WBC (Bld) 9.7 % Normal 1.7-12.0 [facility] Comment on above: Performed By: #### C BC ####[facility] Iqescwccph[address] [place], [place] [address]Dr. Wendie Frazier NEUT # 4.8 103/ul Normal 1.4-6.5 [facility] Comment on above: Performed By: #### C BC ####[facility] Vjiccqlmft[address] [place] [address]Dr. Wendie Frazier Neutrophils/100 WBC (Bld) 63.8 % Normal 43.0-75.0 [facility] Comment on above: Performed By: #### C BC ####[facility] Ujnflfnidg[address] [place], [place] [address]Dr. Wendie Frazier Platelet mean volume (Bld) [Entitic vol] 8.6 fL Critically low 9.5-13.5 [facility] Comment on above: Performed By: #### C BC ####[facility] Xogtuvuygl6[address] [place], [place] [address]Dr. Wendie Freddie PLT 357 103/ul Normal 150-450 [facility] Comment on above: Performed By: #### C BC ####[facility] Nspudlgppk04[address] [place], [place] [address]Dr. Wendie Freddie RBC 3.72 106/ul Critically low 4.20-5.40 [facility] Comment on above: Performed By: #### C BC ####[facility] Knlgijnyru89[address] [place], [place] [address]Dr. Wendie Freddie WBC 7.5 103/ul Normal 4.0-11.0 [facility] Comment on above: Performed By: #### C BC ####[facility] Beazrkneud4[address] [place], [place] [address]DrFacundo Zeniaulysses Frazier POINT OF CARE GLUCOSEon - Glucose [Mass/Vol] 229 mg/dL Critically high 74-106 [facility] Comment on above: Performed By: #### P OCGLUC ####[facility] Uejlvqhhkk[address] [place], [place] [address]Dr. Wendie Frazier Glucose [Mass/Vol] 241 mg/dL Critically high 74-106 [facility] Comment on above: Performed By: #### P OCGLUC ####[facility] Maundppcqt7[address] [place], [place] [address]Dr. Wendie Frazier Glucose [Mass/Vol] 219 mg/dL Critically high 74-106 [facility] Comment on above: Performed By: #### P OCGLUC ####[facility] Pxpb[address]dpokn[address] [place] [address]Dr. Wendie Freddie Glucose [Mass/Vol] 255 mg/dL Critically high 74-106 [facility] Comment on above: Performed By: #### P OCGLUC ####[facility] Xuehcfxhmg[address] [place] [address]Dr. Wendie Frazier PROF 14(COMP METB)on 023 Albumin [Mass/Vol] 1.7 g/dL Critically low 3.4-5.0 [facility] Comment on above: Performed By: #### C MP ####[facility] Rsnbpdstth7[address] [place], [place] [address]Dr. Wendie Frazier Albumin/Globulin [Mass ratio] 0.4 {ratio} Normal [facility] Comment on above: Performed By: #### C MP ####[facility] Gyjwfssiix7[address] [place], [place] [address]Dr. Zeniaulysses Frazier ALP [Catalytic activity/Vol] 102 U/L Normal 46-116 [facility] Comment on above: Performed By: #### C MP ####[facility] Xqrdizqzok[address] [place], [place] [address]Dr. Wendie Frazier ALT [Catalytic activity/Vol] 21 U/L Normal 14-59 [facility] Comment on above: Performed By: #### C MP ####[facility] Iksnhohefs7[address] [place], [place] [address]Dr. Zeniaulysses Freddie Anion gap [Moles/Vol] 10.0 mmol/L Normal [facility] Comment on above: Performed By: #### C MP ####[facility] Ygrixeaikn8963[address] [place], [place] [address]Dr. Wendie Frazier AST [Catalytic activity/Vol] 16 U/L Normal 15-37 [facility] Comment on above: Performed By: #### C MP ####[facility] Divpbbahci10[address] [place], [place] [address]Dr. Wendie Frazier Bilirubin [Mass/Vol] 0.6 mg/dL Normal 0.2-1.0 [facility] Comment on above: Performed By: #### C MP ####[facility] [address]qxj[address]fgwg[address] [place] [address]Dr. Wendie Frazier Calcium [Mass/Vol] 8.5 mg/dL Normal 8.5-10.1 [facility] Comment on above: Performed By: #### C MP ####[facility] Srlfolphyl4[address] [place] [address]Dr. Wendie Frazier Chloride [Moles/Vol] 103 mmol/L Normal 98-107 [facility] Comment on above: Performed By: #### C MP ####[facility] Xfywmfemyt8138[address] [place], [place] [address]Dr. Wendie Frazier CO2 [Moles/Vol] 27.6 mmol/L Normal 21.0-32.0 [facility] Comment on above: Performed By: #### C MP ####[facility] Kvlejjwvom69[address] [place], [place] [address]Dr. Wendie Frazier Creatinine [Mass/Vol] 0.86 mg/dL Normal 0.55-1.02 [facility] Comment on above: Performed By: #### C MP ####[facility] Isvajyfwif7[address] [place], [place] [address]Dr. Wendie Frazier EGFR-AF BAHAMIAN >60 Normal >=60 [facility] Comment on above: Performed By: #### C MP ####[facility] Hqtsoihmjr8[address] [place], [place] [address]Dr. Wendie Freddie EGFR-NON AF BAHAMIAN >60 Normal >=60 [facility] Comment on above: Performed By: #### C MP ####[facility] Hqfbiczzuk8142[address] [place], [place] [address]Dr. Wendie Freddie Globulin (S) [Mass/Vol] 4.0 g/dL Normal [facility] Comment on above: Performed By: #### C MP ####[facility] Grmebyincl[address] [place], [place] [address]Dr. Wendie Freddie Glucose [Mass/Vol] 241 mg/dL Critically high 74-106 [facility] Comment on above: Performed By: #### C MP ####[facility] K[address]nxlcdb[address] [place] [address]Dr. Zeniaulysses Freddie Potassium [Moles/Vol] 3.6 mmol/L Normal 3.5-5.1 [facility] Comment on above: Performed By: #### C MP ####[facility] Lheujtynuj125[address] [place], [place] [address]Dr. Wendie Frazier Protein [Mass/Vol] 5.7 g/dL Critically low 6.4-8.2 [facility] Comment on above: Performed By: #### C MP ####[facility] Zpzjspirrv3192[address] [place], [place] [address]Dr. Wendie Frazier Sodium [Moles/Vol] 137 mmol/L Normal 136-145 [facility] Comment on above: Performed By: #### C MP ####[facility] Lbpvcwtvmn[address] [place], [place] [address]Dr. Wendie Frazier Urea nitrogen [Mass/Vol] 14.0 mg/dL Normal 7.0-18.0 [facility] Comment on above: Performed By: #### C MP ####[facility] Qvscjjbiki3[address] [place], [place] [address]Dr. Wendie Frazier Urea nitrogen/Creatinine [Mass ratio] 16.3 mg/mg Normal [facility] Comment on above: Performed By: #### C MP ####[facility] Ouqkexkinb50[address] [place], [place] [address]Dr. Wendie Frazier VANCOMYCIN TROUGHon 07-23-19 VANCOMYCIN TROUGH 21.9 ug/ml Critically high 5.0-20.0 [facility] Comment on above: Performed By: #### V ANCT ####[facility] Jstxbxyrmp[address] [place], [place] [address]Dr. Wendie Frazier CBC AUTO DIFFon 07-22-2022 BASO # 0.0 103/ul Normal 0.0-0.1 [facility] Comment on above: Performed By: #### C BC ####[facility] Hfctbiejqn[address] [place], [place] [address]Dr. Wendie Frazier Basophils/100 WBC (Bld) 0.5 % Normal 0.2-2.0 [facility] Comment on above: Performed By: #### C BC ####[facility] Wa[address]xzokgo[address] [place] [address]Dr. Wendie Frazier EO # 0.2 103/ul Normal 0.0-0.7 [facility] Comment on above: Performed By: #### C BC ####[facility] Pqeegzzzzy4[address] [place] [address]Dr. Wendie Frazier Eosinophils/100 WBC (Bld) 2.1 % Normal 0.9-7.0 [facility] Comment on above: Performed By: #### C BC ####[facility] Nrthfkfhal24[address] [place] [address]Dr. Wendie Frazier Erythrocyte distribution wid th (RBC) [Ratio] 15.7 % Critically high 11.0-15.0 [facility] Comment on above: Performed By: #### C BC ####[facility] Mjj[address]obyij[address] [place] [address]Dr. Wendie Frazier Hematocrit (Bld) [Volume fraction] 29.8 % Critically low 36.0-48.0 [facility] Comment on above: Performed By: #### C BC ####[facility] Dsbhrsqyye7[address] [place] [address]Dr. Wendie Frazier Hemoglobin (Bld) [Mass/Vol] 9.5 g/dL Critically low 12.0 -16.0 [facility] Comment on above: Performed By: #### C BC ####[facility] Grtdlktspd[address] [place] [address]Dr. Wendie Frazier IG # 0.23 10e3/ul Critically high 0.00-0.03 [facility] Comment on above: Performed By: #### C BC ####[facility] Aqqquvmbeh5[address] [place] [address]Dr. Wendie Frazier IG % 2.8 % Critically high 0.0-0.5 [facility] Comment on above: Performed By: #### C BC ####[facility] Ttncalalco[address] [place] [address]Dr. Wendie Frazier LYMPH # 1.5 103/ul Normal 1.2-3.8 [facility] Comment on above: Performed By: #### C BC ####[facility] Pbobgyhjiu340[address] [place] [address]Dr. Wendie Frazier Lymphocytes/100 WBC (Bld) 18.2 % Critically low 20.5-6 0.0 [facility] Comment on above: Performed By: #### C BC ####[facility] Jzyfqgsfep19[address] [place] [address]Dr. Wendie Frazier MANUAL DIFF REQ NO Normal [facility] Comment on above: Performed By: #### C BC ####[facility] Ukhthbrxuk8258 [place] [address]Dr. Wendie Frazier MCH (RBC) [Entitic mass] 25.9 pg Critically low 26.7-34 .0 [facility] Comment on above: Performed By: #### C BC ####[facility] Haqekwmiwe[address] [place], [place] [address]Dr. Wendie Frazier MCHC (RBC) [Mass/Vol] 31.9 g/dL Normal 29.9-35.2 [facility] Comment on above: Performed By: #### C BC ####[facility] Gkuusethyi[address] [place] [address]Dr. Wendie Frazier MCV (RBC) [Entitic vol] 81.2 fL Normal 81.0-99.0 [facility] Comment on above: Performed By: #### C BC ####[facility] Tkcrajuaia8[address] [place] [address]Dr. Wendie Frazier MONO # 0.7 103/ul Normal 0.3-0.8 [facility] Comment on above: Performed By: #### C BC ####[facility] Oxomteaaos9[address] [place] [address]Dr. Wendie Frazier Monocytes/100 WBC (Bld) 8.1 % Normal 1.7-12.0 [facility] Comment on above: Performed By: #### C BC ####[facility] Dxweczavch6238 [place] [address]Dr. Wendie Frazier NEUT # 5.7 103/ul Normal 1.4-6.5 [facility]ital Comment on above: Performed By: #### C BC ####[facility] Pvaanysdob8[address] [place] [address]Dr. Wendie Frazier Neutrophils/100 WBC (Bld) 68.3 % Normal 43.0-75.0 [facility] Comment on above: Performed By: #### C BC ####[facility] Crimwspont94[address] [place] [address]Dr. Wendie Frazier Platelet mean volume (Bld) [Entitic vol] 8.6 fL Critically low 9.5-13.5 [facility] pital Comment on above: Performed By: #### C BC ####[facility] Fbltmsctqj8[address] [place] [address]Dr. Wendie Frazier PLT 386 103/ul Normal 150-450 [facility]ital Comment on above: Performed By: #### C BC ####[facility] Xwguurogyn[address] [place], [place] [address]Dr. Wendie Frazier RBC 3.67 106/ul Critically low 4.20-5.40 [facility] Comment on above: Performed By: #### C BC ####[facility] Pdngnzmtms7360 [place] [address]Dr. Wendie Frazier WBC 8.3 103/ul Normal 4.0-11.0 [facility] Comment on above: Performed By: #### C BC ####[facility] Zucbbmmvgk90[address] [place] [address]Dr. Wendie Frazier POINT OF CARE GLUCOSEon Glucose [Mass/Vol] 261 mg/dL Critically high 74-106 [facility] Comment on above: Performed By: #### P OCGLUC ####[facility] Jmzbakszfv9[address] [place] [address]Dr. Wendie Frazier Glucose [Mass/Vol] 210 mg/dL Critically high 74-106 [facility] Comment on above: Performed By: #### P OCGLUC ####[facility] Gmxrelbacn8[address] [place] [address]Dr. Wendie Frazier Glucose [Mass/Vol] 289 mg/dL Critically high -106 [facility] Comment on above: Performed By: #### P OCGLUC ####[facility] Ggvnlismpl8109 [place] [address]Dr. Wendie Frazier Glucose [Mass/Vol] 242 mg/dL Critically high 74-106 [facility] Comment on above: Performed By: #### P OCGLUC ####[facility] Ybjzfeozny3476 [place] [address]Dr. Wendie Frazier PROF 14(COMP METB)on 023 Albumin [Mass/Vol] 1.7 g/dL Critically low 3.4-5.0 [facility] Comment on above: Performed By: #### C MP ####[facility] Ibpbmxtlck94[address] [place], [place] [address]Dr. Wendie Frazier Albumin/Globulin [Mass ratio] 0.4 {ratio} Normal [facility] Comment on above: Performed By: #### C MP ####[facility] Wopscpnnag9[address] [place], [place] [address]Dr. Wendie Frazier ALP [Catalytic activity/Vol] 112 U/L Normal 46-116 [facility] Comment on above: Performed By: #### C MP ####[facility] Vgleewveuq04[address] [place] [address]Dr. Wendie Frazier ALT [Catalytic activity/Vol] 25 U/L Normal 14-59 [facility] Comment on above: Performed By: #### C MP ####[facility] Ojmtcpfwpv1506 [place] [address]Dr. Wendie Frazier Anion gap [Moles/Vol] 10.1 mmol/L Normal [facility] Comment on above: Performed By: #### C MP ####[facility] Ozkmfblwvt9[address] [place], [place] [address]Dr. Wendie Frazier AST [Catalytic activity/Vol] 15 U/L Normal 15-37 [facility] Comment on above: Performed By: #### C MP ####[facility] Awslolopfb23[address] [place] [address]Dr. Wendie Frazier Bilirubin [Mass/Vol] 0.6 mg/dL Normal 0.2-1.0 [facility] Comment on above: Performed By: #### C MP ####[facility] Pulltbkfcs98[address] [place] [address]Dr. Wendie Frazier Calcium [Mass/Vol] 8.5 mg/dL Normal 8.5-10.1 [facility] Comment on above: Performed By: #### C MP ####[facility] Iawyvxttay39[address] [place], [place] [address]Dr. Wendie Frazier Chloride [Moles/Vol] 102 mmol/L Normal 98-107 [facility] Comment on above: Performed By: #### C MP ####[facility] Dotnbfmvte8102[address] [place], [place] [address]Dr. Wendie Frazier CO2 [Moles/Vol] 26.4 mmol/L Normal 21.0-32.0 [facility] Comment on above: Performed By: #### C MP ####[facility] Trmtefgtou7833[address] [place], [place] [address]Dr. Wendie Frazier Creatinine [Mass/Vol] 0.92 mg/dL Normal 0.55-1.02 [facility] Comment on above: Performed By: #### C MP ####[facility] Rkugokxzbx3484[address] [place], [place] [address]Dr. Wendie Freddie EGFR-AF BAHAMIAN >60 Normal >=60 [facility] Comment on above: Performed By: #### C MP ####[facility] Tslclvqnbn13[address] [place], [place] [address]Dr. Wendie Freddie EGFR-NON AF BAHAMIAN >60 Normal >=60 [facility] Comment on above: Performed By: #### C MP ####[facility] Qyhbfuroxn4875[address] [place], [place] [address]Dr. Wendie Frazier Globulin (S) [Mass/Vol] 4.0 g/dL Normal [facility] Comment on above: Performed By: #### C MP ####[facility] Bbatrxmiye9[address] [place] [address]Dr. Wendie Frazier Glucose [Mass/Vol] 231 mg/dL Critically high 74-106 [facility] Comment on above: Performed By: #### C MP ####[facility] Pqiweufgnn3231 [place] [id number]. Zeniaulysses Frazier Potassium [Moles/Vol] 3.5 mmol/L Normal 3.5-5.1 [facility] Comment on above: Performed By: #### C MP ####[facility] Glhvqeiwrs1034[address] [place], [place] [address]Dr. Wendie Frazier Protein [Mass/Vol] 5.7 g/dL Critically low 6.4-8.[address] [facility] Comment on above: Performed By: #### C MP ####[facility] Mdhsrxsivj7522[address] [place], [place] [address]Dr. Wendie Frazier Sodium [Moles/Vol] 135 mmol/L Critically low 136-145 [facility] Comment on above: Performed By: #### C MP ####[facility] Zdjazkudde85[address] [place], [place] [address]Dr. Wendie Freddie Urea nitrogen [Mass/Vol] 16.0 mg/dL Normal 7.0-18.0 [facility] Comment on above: Performed By: #### C MP ####[facility] Ujoyzmdtdn44[address] [place], [place] [address]Dr. Zeniaulysses Freddie Urea nitrogen/Creatinine [Mass ratio] 17.4 mg/mg Normal [facility] Comment on above: Performed By: #### C MP ####[facility] Ibjumoxbko0592[address] [place], [place] [address]Dr. Wendie Freddie CBC AUTO DIFFon 07-21-2022 BASO # 0.1 103/ul Normal 0.0-0.1 [facility] Comment on above: Performed By: #### C BC ####[facility] Kzcnjwehiw1364[address] [place], [place] [address]Dr. Wendie Frazier Basophils/100 WBC (Bld) 0.5 % Normal 0.2-2.0 [facility] Comment on above: Performed By: #### C BC ####[facility] Remhyjhcjh5[address] [place] [address]Dr. Wendie Frazier EO # 0.2 103/ul Normal 0.0-0.7 [facility] Comment on above: Performed By: #### C BC ####[facility] Varbutofcz9626 [place] [address]Dr. Wendie Frazier Eosinophils/100 WBC (Bld) 1.6 % Normal 0.9-7.0 [facility] Comment on above: Performed By: #### C BC ####[facility] Lkuirdddiz6216[address] [place], [place] [address]Dr. Wendie Frazier Erythrocyte distribution wid th (RBC) [Ratio] 15.8 % Critically high 11.0-15.0 [facility] Comment on above: Performed By: #### C BC ####[facility] Hdgunqqhgj9[address] [place], [place] [address]DrFacundo Frazier Hematocrit (Bld) [Volume fraction] 30.4 % Critically low 36.0-48.0 [facility] Comment on above: Performed By: #### C BC ####[facility] Ghuapjqroo96[address] [place], [place] [address]DrFacundo Frazier Hemoglobin (Bld) [Mass/Vol] 9.7 g/dL Critically low 12.0 -16.0 [facility] Comment on above: Performed By: #### C BC ####[facility] Glcxcqzgeq65[address] [place], [place] [address]DrFacundo Frazier IG # 0.30 10e3/ul Critically high 0.00-0.03 [facility] Comment on above: Performed By: #### C BC ####[facility] Zlwgnkazld17[address] [place], [place] [address]Dr. Wendie Frazier IG % 3.2 % Critically high 0.0-0.5 [facility] Comment on above: Performed By: #### C BC ####[facility] Xwukjhmsts7[address] [place], [place] [address]Dr. Wendie Frazier LYMPH # 1.8 103/ul Normal 1.2-3.8 [facility] Comment on above: Performed By: #### C BC ####[facility] [address]bfjswwc[address] [place] [address]Dr. Wendie Freddie Lymphocytes/100 WBC (Bld) 19.7 % Critically low 20.5-6 0.0 [facility] Comment on above: Performed By: #### C BC ####[facility] Hqbrdcuoxu12[address] [place] [address]Dr. Zeniaulysses Frazier MANUAL DIFF REQ NO Normal [facility] Comment on above: Performed By: #### C BC ####[facility] Jdxpsqbnlq24[address] [place] [address]Dr. Wendie Freddie MCH (RBC) [Entitic mass] 25.7 pg Critically low 26.7-34 .0 [facility] Comment on above: Performed By: #### C BC ####[facility] Wcnctwmwjt[address] [place], [place] [address]Dr. Zeniaulysses Frazier MCHC (RBC) [Mass/Vol] 31.9 g/dL Normal 29.9-35.2 [facility] Comment on above: Performed By: #### C BC ####[facility] Zhnwhsllhd[address] [place], [place] [address]Dr. Wendie Frazier MCV (RBC) [Entitic vol] 80.6 fL Critically low 81.0-99. 0 [facility] Comment on above: Performed By: #### C BC ####[facility] [address] [place] [address]Dr. Wendie Frazier MONO # 0.8 103/ul Normal 0.3-0.8 [facility] Comment on above: Performed By: #### C BC ####[facility] Jduwgsince92[address] [place], [place] [address]Dr. Wendie Frazier Monocytes/100 WBC (Bld) 8.7 % Normal 1.7-12.0 [facility] Comment on above: Performed By: #### C BC ####[facility] Zlkwzfltvj[address] [place], [place] [id number]. Wendie Frazier NEUT # 6.1 103/ul Normal 1.4-6.5 [facility] ospital Comment on above: Performed By: #### C BC ####[facility] Kab[address]crp[address] [place] [address]Dr. Wendie Frazier Neutrophils/100 WBC (Bld) 66.3 % Normal 43.0-75.0 [facility] Comment on above: Performed By: #### C BC ####[facility] Owk[address]clgih[address] [place] [address]Dr. Wendie Frazier Platelet mean volume (Bld) [Entitic vol] 8.6 fL Critically low 9.5-13.5 [facility] Comment on above: Performed By: #### C BC ####[facility] Gtlqnbtqqq94[address] [place], [place] [address]Dr. Wendie Frazier PLT 419 103/ul Normal 150-450 The [facility] ostal Comment on above: Performed By: #### C BC ####[facility] Obflybrbox8[address] [place], [place] [address]Dr. Wendie Frazier RBC 3.77 106/ul Critically low 4.20-5.40 The [facility] Comment on above: Performed By: #### C BC ####[facility] Heewpbwlur5147[address] [place], [place] [address]Dr. Wendie Frazier WBC 9.2 103/ul Normal 4.0-11.0 [facility] Comment on above: Performed By: #### C BC ####[facility] Xjotvdaccr6[address] [place], [place] [address]Dr. Wendie Frazier GI PANEL (PCR)on 07-21-2022 Adenovirus F 40/41 Not detected Normal NOT DETECTED [facility] Comment on above: Performed By: #### G IPANEL ####[facility] Qkzgvqahhx[address] [place], [place] [address]Dr. Wendie Frazier Astrovirus Not detected Normal NOT DETECTED The [facility] Comment on above: Performed By: #### G IPANEL ####[facility] Wldetbgmaw54[address] [place], [place] [address]Dr. Wendie Frazier C. Diff toxin A/B Not detected Normal NOT DETECTED The [facility] Comment on above: Performed By: #### G IPANEL ####[facility] Egwjmxkosz20[address] [place], [place] [address]Dr. Wendie Frazier Campylobacter Not detected Normal NOT DETECTED The [facility] Comment on above: Performed By: #### G IPANEL ####[facility] Xzeutxgzeb6484[address] [place], [place] [address]Dr. Wendie Frazier Cryptosporidium Not detected Normal NOT DETECTED The [facility] Comment on above: Performed By: #### G IPANEL ####[facility] Dkjpnfpbri163[address] [place], [place] [address]Dr. Wendie Frazier Cyclos. Cayetanensis Not detected Normal NOT DETECTED The [facility] Comment on above: Performed By: #### G IPANEL ####[facility] Dimlvdemfb0116[address] [place], [place] [address]Dr. Wendie Frazier E. Coli O157 Not Applicable Normal Not Applicable The [facility] Comment on above: Performed By: #### G IPANEL ####[facility] Ugkbjiomud9[address] [place], [place] [address]Dr. Wendie Frazier E. histolytica Not detected Normal NOT DETECTED The [facility] Comment on above: Performed By: #### G IPANEL ####[facility] Aoojuaakks33[address] [place], [place] [address]Dr. Wendie Frazier EAEC Not detected Normal NOT DETECTED The [facility] Comment on above: Performed By: #### G IPANEL ####[facility] Cuwjekzkpg6[address] [place], [place] [address]Dr. Wendie Frazier EIEC Not detected Normal NOT DETECTED The [facility] Comment on above: Performed By: #### G IPANEL ####[facility] Plokcbptie[address] [place], [place] [address]Dr. Wendie Frazier EPEC Not detected Normal NOT DETECTED The [facility] Comment on above: Performed By: #### G IPANEL ####[facility] Oeuwnijhft1404[address] [place], [place] [address]Dr. Wendie Frazier ETEC Not detected Normal NOT DETECTED The [facility] Comment on above: Performed By: #### G IPANEL ####[facility] [address] [place] [address]Dr. Zeniaulysses Freddie G. Lamblia Not detected Normal NOT DETECTED The [facility] Comment on above: Performed By: #### G IPANEL ####[facility] [address]msxns[address] [place] [address]Dr. Yiulysses Freddie GIPANEL CONTROLS PASSED Normal The [facility] Comment on above: Performed By: #### G IPANEL ####[facility] [address]inod[address] [place] [address]Dr. Wendie Frazier GIPNL ADRIENNE HEADER GI PANEL BACTERIA Normal T [facility] Comment on above: Performed By: #### G IPANEL ####[facility] N[address]qhc[address] [place] [address]Dr. Wendie JESSICANLHD ECOLI GI PANEL DIARRHEAGENIC E.COLI / SHIGELLA Nor mal [facility] Comment on above: Performed By: #### G IPANEL ####[facility] Yrgrybkyge7[address] [place], [place] [address]Dr. Zeniaulysses Frazier GIPNLHD INFO SEE BELOW Normal [facility] Comment on above: Result Comment: EAEC - Enteroaggregative E. Coli EPEC- Enteropathogenic E. Coli ETEC- Enterotoxigenic E. Coli lt/st STEC- Shigella-like toxin-producing E. Coli stx1/stx2 EIEC- Shigella/Enteroinvasive E. Coli Performed By: #### G IPANEL ####[facility] [address]unq[address] [place] [address]Dr. Yiulysses Frazier GIPNLHD PARASITES GI PANEL PARASITES Normal [facility] Comment on above: Performed By: #### G IPANEL ####[facility] [address]oxnejnt[address] [place] [address]Dr. Zeniaulysses Frazier GIPNLHD VIRUS GI PANEL VIRUSES Normal The [facility] Comment on above: Performed By: #### G IPANEL ####[facility] Cuyfxuhoua[address] [place], [place] [address]Dr. Wendie Frazier Norovirus GI/GII Not detected Normal NOT DETECTED The [facility] Comment on above: Performed By: #### G IPANEL ####[facility] Hzvmgzhwlz1867[address] [place], [place] [address]Dr. Zeniaulysses Frazier P. Shigelloides Not detected Normal NOT DETECTED The [facility] Comment on above: Performed By: #### G IPANEL ####[facility] Mgmxqjsrss6072[address] [place], [place] [address]Dr. Wendie Frazier Rotavirus A Not detected Normal NOT DETECTED The [facility] Comment on above: Performed By: #### G IPANEL ####[facility] Dxljrnkznp9364[address] [place], [place] [address]Dr. Wendie Frazier Salmonella Not detected Normal NOT DETECTED The [facility] Comment on above: Performed By: #### G IPANEL ####[facility] Fpmujnhwjr1546[address] [place], [place] [address]Dr. Wendie Frazier Sapovirus Not detected Normal NOT DETECTED The [facility] Comment on above: Performed By: #### G IPANEL ####[facility] Ufbjregurc1414[address] [place], [place] [address]Dr. Wendie Frazier STEC Not detected Normal NOT DETECTED The [facility] Comment on above: Performed By: #### G IPANEL ####[facility] Stfskxszwk58[address] [place], [place] [address]Dr. Zeniaulysses Frazier Vibrio Not detected Normal NOT DETECTED The [facility] Comment on above: Performed By: #### G IPANEL ####[facility] Bccqlbvzcw67[address] [place], [place] [address]Dr. Zeniaulysses Frazier Vibrio Cholera Not detected Normal NOT DETECTED The [facility] Comment on above: Performed By: #### G IPANEL ####[facility] Lylxhjdkrv139[address] [place], [place] [address]Dr. Wendie Frazier Y. Enterocolitica Not detected Normal NOT DETECTED The [facility] Comment on above: Performed By: #### G IPANEL ####[facility] Amgepasyxq217[address] [place], [place] [address]Dr. Wendie Frazier POINT OF CARE GLUCOSEon 01-0 Glucose [Mass/Vol] 247 mg/dL Critically high 74-106 T [facility] Comment on above: Performed By: #### P OCGLUC ####[facility] [address] [place] [address]Dr. Wendie Frazier Glucose [Mass/Vol] 287 mg/dL Critically high 74-106 [facility] Comment on above: Performed By: #### P OCGLUC ####[facility] [address]poq[address] [place] [address]Dr. Wendie Frazier Glucose [Mass/Vol] 299 mg/dL Critically high 74-106 [facility] Comment on above: Performed By: #### P OCGLUC ####[facility] [address]sa[address] [place] [address]Dr. Wendie Frazier Glucose [Mass/Vol] 222 mg/dL Critically high -106 [facility] Comment on above: Performed By: #### P OCGLUC ####[facility] X[address] [place] [address]Dr. Wendie Frazier PROF 14(COMP METB)on 023 Albumin [Mass/Vol] 1.7 g/dL Critically low 3.4-5.0 [facility] Comment on above: Performed By: #### C MP ####[facility] [address] [place] [address]Dr. Zeniaulysses Freddie Albumin/Globulin [Mass ratio] 0.4 {ratio} Normal [facility] Comment on above: Performed By: #### C MP ####[facility] E[address]clkin[address] [place] [address]Dr. Zeniaulysses Freddie ALP [Catalytic activity/Vol] 121 U/L Critically high 46 -116 [facility] Comment on above: Performed By: #### C MP ####[facility] [address]mt[address] [place] [address]Dr. Wendie Frazier ALT [Catalytic activity/Vol] 31 U/L Normal 14-59 [facility] Comment on above: Performed By: #### C MP ####[facility] Z[address]ziaevdw[address] [place] [address]Dr. Wendie Frazier Anion gap [Moles/Vol] 9.8 mmol/L Normal [facility] Comment on above: Performed By: #### C MP ####[facility] [address]eslpjbs[address] [place] [address]Dr. Wendie Frazier AST [Catalytic activity/Vol] 17 U/L Normal 15-37 [facility] Comment on above: Performed By: #### C MP ####[facility] Iq[address]xrfw[address] [place] [address]Dr. Wendie Frazier Bilirubin [Mass/Vol] 0.6 mg/dL Normal 0.2-1.0 [facility] Comment on above: Performed By: #### C MP ####[facility] Mjxbkynyju09[address] [place], [place] [address]Dr. Wendie Frazier Calcium [Mass/Vol] 8.5 mg/dL Normal 8.5-10.1 [facility] Comment on above: Performed By: #### C MP ####[facility] Tfgyfoyhxd1426[address] [place], [place] [address]Dr. Wendie Frazier Chloride [Moles/Vol] 103 mmol/L Normal 98-107 [facility] Comment on above: Performed By: #### C MP ####[facility] Cvghracvfj2152[address] [place], [place] [address]Dr. Wendie Frazier CO2 [Moles/Vol] 25.8 mmol/L Normal 21.0-32.0 [facility] Comment on above: Performed By: #### C MP ####[facility] Ehergzhuro2399[address] [place], [place] [address]Dr. Wendie Frazier Creatinine [Mass/Vol] 0.89 mg/dL Normal 0.55-1.02 [facility] Comment on above: Performed By: #### C MP ####[facility] Ivtvievxks9418[address] [place], [place] [address]Dr. Wendie Freddie EGFR-AF BAHAMIAN >60 Normal >=60 [facility] Comment on above: Performed By: #### C MP ####[facility] Fzbsvdlgmi75[address] [place], [place] [address]Dr. Zeniaulysses Freddie EGFR-NON AF BAHAMIAN >60 Normal >=60 [facility] Comment on above: Performed By: #### C MP ####[facility] I[address]tbrmxyd[address] [place] [address]Dr. Wendie Frazier Globulin (S) [Mass/Vol] 4.3 g/dL Normal [facility] Comment on above: Performed By: #### C MP ####[facility] Jpxzzxsaje[address] [place] [address]Dr. Wendie Frazier Glucose [Mass/Vol] 193 mg/dL Critically high 74-106 [facility] Comment on above: Performed By: #### C MP ####[facility] Ifmbldnjii16[address] [place] [address]Dr. Wendie Frazier Potassium [Moles/Vol] 3.6 mmol/L Normal 3.5-5.1 [facility] Comment on above: Performed By: #### C MP ####[facility] Cazpycmqer847[address] [place], [place] [address]Dr. Wendie Frazier Protein [Mass/Vol] 6.0 g/dL Critically low 6.4-8.2 [facility] Comment on above: Performed By: #### C MP ####[facility] Gnekujdesi899[address] [place], [place] [address]Dr. Wendie Frazier Sodium [Moles/Vol] 135 mmol/L Critically low 136-145 [facility] Comment on above: Performed By: #### C MP ####[facility] Huizjgyvoq0494[address] [place], [place] [address]Dr. Wendie Frazier Urea nitrogen [Mass/Vol] 17.0 mg/dL Normal 7.0-18.0 [facility] Comment on above: Performed By: #### C MP ####[facility] Yyfjgbpahi0592[address] [place], [place] [address]Dr. Wendie Frazier Urea nitrogen/Creatinine [Mass ratio] 19.1 mg/mg Normal [facility] Comment on above: Performed By: #### C MP ####[facility] Fxkkdxqiea9445[address] [place], [place] [address]Dr. Wendie Freddie CBC AUTO DIFFon 07-20-2022 BASO # 0.0 103/ul Normal 0.0-0.1 [facility] Comment on above: Performed By: #### C BC ####[facility] [address] [place] [address]Dr. Wendie Frazier Basophils/100 WBC (Bld) 0.4 % Normal 0.2-2.0 [facility] Comment on above: Performed By: #### C BC ####[facility] Cslupyqqta1147[address] [place], [place] [address]Dr. Wendie Frazier EO # 0.1 103/ul Normal 0.0-0.7 [facility] Comment on above: Performed By: #### C BC ####[facility] Rhftfxhthr5324[address] [place], [place] [address]Dr. Wendie Frazier Eosinophils/100 WBC (Bld) 1.3 % Normal 0.9-7.0 [facility] Comment on above: Performed By: #### C BC ####[facility] Ylfmfcpbwl911[address] [place], [place] [address]Dr. Wendie Frazier Erythrocyte distribution wid th (RBC) [Ratio] 15.8 % Critically high 11.0-15.0 [facility] Comment on above: Performed By: #### C BC ####[facility] Slawpcwlqj5349[address] [place], [place] [address]Dr. Wendie Frazier Hematocrit (Bld) [Volume fraction] 27.8 % Critically low 36.0-48.0 [facility] Comment on above: Performed By: #### C BC ####[facility] Rjtldpwkel458[address] [place], [place] [address]Dr. Wendie Frazier Hemoglobin (Bld) [Mass/Vol] 8.8 g/dL Critically low 12.0 -16.0 [facility] Comment on above: Performed By: #### C BC ####[facility] Khayyqrnsx20[address] [place], [place] [address]DrFacundo Frazier IG # 0.28 10e3/ul Critically high 0.00-0.03 [facility] Comment on above: Performed By: #### C BC ####[facility] Zabtvymdxh3386[address] [place], [place] [address]DrFacundo Frazier IG % 2.8 % Critically high 0.0-0.5 [facility] Comment on above: Performed By: #### C BC ####[facility] Zwnjquocxj[address] [place] [address]DrFacundo Wendie Freddie LYMPH # 1.6 103/ul Normal 1.2-3.8 [facility] Comment on above: Performed By: #### C BC ####[facility] Otpgzhxtdo[address] [place], [place] [address]DrFacundo Wendie Freddie Lymphocytes/100 WBC (Bld) 16.1 % Critically low 20.5-6 0.0 [facility] Comment on above: Performed By: #### C BC ####[facility] Irjnbvanps39[address] [place], [place] [address]DrFacundo Wendie Freddie MANUAL DIFF REQ NO Normal [facility] Comment on above: Performed By: #### C BC ####[facility] Kysfyubhda[address] [place], [place] [address]DrFacundo Wendie Freddie MCH (RBC) [Entitic mass] 25.8 pg Critically low 26.7-34 .0 [facility] Comment on above: Performed By: #### C BC ####[facility] Vtnerfpbuh7[address] [place], [place] [address]DrFacundo Wendie Freddie MCHC (RBC) [Mass/Vol] 31.7 g/dL Normal 29.9-35.2 [facility] Comment on above: Performed By: #### C BC ####[facility] Dddgelimni421[address] [place], [place] [address]DrFacundo Wendie Freddie MCV (RBC) [Entitic vol] 81.5 fL Normal 81.0-99.0 [facility] Comment on above: Performed By: #### C BC ####[facility] Qiglcpnfwk4[address] [place], [place] [address]DrFacundo Knutsonulysses Freddie MONO # 0.8 103/ul Normal 0.3-0.8 [facility] Comment on above: Performed By: #### C BC ####[facility] Znputwhqxk1658[address] [place], [place] [address]Dr. Wendie Frazier Monocytes/100 WBC (Bld) 8.4 % Normal 1.7-12.0 [facility] Comment on above: Performed By: #### C BC ####[facility] [address] [place] [address]Dr. Wendie Frazier NEUT # 7.1 103/ul Critically high 1.4-6.5 [facility] Comment on above: Performed By: #### C BC ####[facility] Tew[address]ckpbi[address] [place] [address]Dr. Wendie Frazier Neutrophils/100 WBC (Bld) 71.0 % Normal 43.0-75.0 [facility] Comment on above: Performed By: #### C BC ####[facility] [address]isve[address] [place] [address]Dr. Wendie Frazier Platelet mean volume (Bld) [Entitic vol] 9.2 fL Critically low 9.5-13.5 [facility] Comment on above: Performed By: #### C BC ####[facility] [address]tyn[address] [place] [address]Dr. Wendie Frazier PLT 386 103/ul Normal 150-450 [facility] Comment on above: Performed By: #### C BC ####[facility] Ecsmgebrsc[address] [place] [address]Dr. Wendie Frazier RBC 3.41 106/ul Critically low 4.20-5.40 [facility] Comment on above: Performed By: #### C BC ####[facility] Hdhvmydqkk8[address] [place] [address]Dr. Wendie Frazier WBC 10.0 103/ul Normal 4.0-11.0 [facility] Comment on above: Performed By: #### C BC ####[facility] Qvohlmlcuz[address] [place] [address]Dr. Wendie Frazier CULTURE OTHERon 07-20-2022 CULTURE OTHER Normal [facility] Comment on above: Performed By: #### O THCX ####[facility] Pf[address]ysmynwt[address] [place] [address]Dr. Wendie Frazier POINT OF CARE GLUCOSEon Glucose [Mass/Vol] 274 mg/dL Critically high 74-106 [facility] Comment on above: Performed By: #### P OCGLUC ####[facility] Qcpqtddrsy25[address] [place] [address]Dr. Wendie Frazier Glucose [Mass/Vol] 271 mg/dL Critically high 74-106 [facility] Comment on above: Performed By: #### P OCGLUC ####[facility] Xymanbvtbb9[address] [place], [place] [address]Dr. Wendie Frazier PROF 14(COMP METB)on 023 Albumin [Mass/Vol] 1.6 g/dL Critically low 3.4-5.0 [facility] Comment on above: Performed By: #### C MP ####[facility] Utyssiildg6423[address] [place], [place] [address]Dr. Wendie Frazier Albumin/Globulin [Mass ratio] 0.4 {ratio} Normal [facility] Comment on above: Performed By: #### C MP ####[facility] Qntwvwxbsd5176[address] [place], [place] [address]Dr. Wendie Frazier ALP [Catalytic activity/Vol] 126 U/L Critically high 46 -116 [facility] Comment on above: Performed By: #### C MP ####[facility] Bbevxxwygq5377[address] [place], [place] [address]Dr. Wendie Frazier ALT [Catalytic activity/Vol] 43 U/L Normal 14-59 [facility] Comment on above: Performed By: #### C MP ####[facility] Svtrgixxsb4336[address] [place], [place] [address]Dr. Wendie Frazier Anion gap [Moles/Vol] 14.8 mmol/L Normal [facility] Comment on above: Performed By: #### C MP ####[facility] Jgbztvyrpf4427[address] [place], [place] [address]Dr. Wendie Frazier AST [Catalytic activity/Vol] 22 U/L Normal 15-37 [facility] Comment on above: Performed By: #### C MP ####[facility] Qzhuxbkxsl[address] [place] [address]Dr. Wendie Frazier Bilirubin [Mass/Vol] 0.7 mg/dL Normal 0.2-1.0 [facility] Comment on above: Performed By: #### C MP ####[facility] Veeiuzevnj5715[address] [place], [place] [address]Dr. Wendie Frazier Calcium [Mass/Vol] 8.3 mg/dL Critically low 8.5-10.[address] [facility] Comment on above: Performed By: #### C MP ####[facility] Capgjjvkdl117[address] [place], [place] [address]Dr. Wendie Frazier Chloride [Moles/Vol] 103 mmol/L Normal 98-107 [facility] Comment on above: Performed By: #### C MP ####[facility] Shcsbadbpr4843[address] [place], [place] [address]Dr. Wendie Frazier CO2 [Moles/Vol] 22.2 mmol/L Normal 21.0-32.0 [facility] Comment on above: Performed By: #### C MP ####[facility] Blxqorltcu8[address] [place], [place] [address]Dr. Wendie Frazier Creatinine [Mass/Vol] 1.00 mg/dL Normal 0.55-1.02 [facility] Comment on above: Performed By: #### C MP ####[facility] Rlvtocjetw3335[address] [place], [place] [address]Dr. Zeniaulysses Freddie EGFR-AF BAH[place]IAN >60 Normal >=60 [facility] Comment on above: Performed By: #### C MP ####[facility] Sfbpiymkzf8687[address] [place], [place] [address]Dr. Zeniaulysses Freddie EGFR-NON AF BAH[place]IAN 57 mL/min/1.73m2 Critically low >=60 [facility] Comment on above: Performed By: #### C MP ####[facility] Wsohafqoml7119[address] [place], [place] [address]Dr. Wendie Frazier Globulin (S) [Mass/Vol] 3.6 g/dL Normal [facility] Comment on above: Performed By: #### C MP ####[facility] Ovkmfkckda8527[address] [place], [place] [address]Dr. Wendie Frazier Glucose [Mass/Vol] 181 mg/dL Critically high 74-106 [facility] Comment on above: Performed By: #### C MP ####[facility] G[address]pxyifan[address] [place] [address]Dr. Wendie Frazier Potassium [Moles/Vol] 4.0 mmol/L Normal 3.5-5.1 [facility] Comment on above: Performed By: #### C MP ####[facility] Wqyqnujazv[address] [place], [place] [address]Dr. Wendie Frazier Protein [Mass/Vol] 5.2 g/dL Critically low 6.4-8.[address] [facility] Comment on above: Performed By: #### C MP ####[facility] Znimzhjcll04[address] [place], [place] [address]Dr. Wendie Frazier Sodium [Moles/Vol] 136 mmol/L Normal 136-145 [facility] Comment on above: Performed By: #### C MP ####[facility] Pjzjkiyrpm034[address] [place], [place] [address]Dr. Wendie Frazier Urea nitrogen [Mass/Vol] 20.0 mg/dL Critically high 7.0-18 .0 [facility] Comment on above: Performed By: #### C MP ####[facility] Wusznznnvc8[address] [place], [place] [address]Dr. Wendie Frazier Urea nitrogen/Creatinine [Mass ratio] 20.0 mg/mg Normal [facility] Comment on above: Performed By: #### C MP ####[facility] [address]ww[address] [place] [address]Dr. Wendie Freddie CBC AUTO DIFFon 07-19-2022 BASO # 0.1 103/ul Normal 0.0-0.1 [facility] Comment on above: Performed By: #### C BC ####[facility] Viqgxywqwg[address] [place], [place] [address]Dr. Wendie Frazier Basophils/100 WBC (Bld) 0.5 % Normal 0.2-2.0 [facility] Comment on above: Performed By: #### C BC ####[facility] Dxqvyjhgvm[address] [place] [id number]. Wendie Frazier EO # 0.2 103/ul Normal 0.0-0.7 [facility] Comment on above: Performed By: #### C BC ####[facility] Uieakhgtas[address] [place], [place] [address]Dr. Wendie Frazier Eosinophils/100 WBC (Bld) 1.5 % Normal 0.9-7.0 [facility] Comment on above: Performed By: #### C BC ####[facility] Ipiyfrdzuk[address] [place], [place] [address]Dr. Wendie Frazier Erythrocyte distribution wid th (RBC) [Ratio] 15.6 % Critically high 11.0-15.0 [facility] Comment on above: Performed By: #### C BC ####[facility] Crzyvtlsdf95[address] [place], [place] [address]Dr. Wendie Frazier Hematocrit (Bld) [Volume fraction] 25.0 % Critically low 36.0-48.0 [facility] Comment on above: Performed By: #### C BC ####[facility] Hakefspcxb7[address] [place], [place] [address]Dr. Wendie Frazier Hemoglobin (Bld) [Mass/Vol] 8.0 g/dL Critically low 12.0 -16.0 [facility] Comment on above: Performed By: #### C BC ####[facility] Vgbwewtbgy[address] [place], [place] [address]Dr. Wendie Fraizer IG # 0.27 10e3/ul Critically high 0.00-0.03 [facility] Comment on above: Performed By: #### C BC ####[facility] Fwamniyvki[address] [place], [place] [address]Dr. Wendie Frazier IG % 2.5 % Critically high 0.0-0.5 [facility] Comment on above: Performed By: #### C BC ####[facility] Aibdqdvzjz264[address] [place], [place] [address]Dr. Zeniaulysses Frazier LYMPH # 1.7 103/ul Normal 1.2-3.8 [facility] Comment on above: Performed By: #### C BC ####[facility] R[address]lllxshm[address] [place] [id number]. Wendie Frazier Lymphocytes/100 WBC (Bld) 15.7 % Critically low 20.5-6 0.0 [facility] Comment on above: Performed By: #### C BC ####[facility] [address]rhtrmfmir[address] [place] [phone] Frazier MANUAL DIFF REQ NO Normal [facility] Comment on above: Performed By: #### C BC ####[facility] Wimvatouqu[address] [place] [phone]. Wendie Frazier MCH (RBC) [Entitic mass] 26.0 pg Critically low 26.7-34 .0 [facility] Comment on above: Performed By: #### C BC ####[facility] Ndqueutslj[address] [place] [address]DrFacundo Frazier MCHC (RBC) [Mass/Vol] 32.0 g/dL Normal 29.9-35.2 [facility] Comment on above: Performed By: #### C BC ####[facility] Zqqzxogllt[address] [place] [phone] Frazier MCV (RBC) [Entitic vol] 81.2 fL Normal 81.0-99.0 [facility] Comment on above: Performed By: #### C BC ####[facility] Dofgcadaqq45[address] [place] [id number]. Wendie Frazier MONO # 0.8 103/ul Normal 0.3-0.8 [facility] Comment on above: Performed By: #### C BC ####[facility] Uhcqokoolc32[address] [place] [phone] Frazier Monocytes/100 WBC (Bld) 7.4 % Normal 1.7-12.0 [facility] Comment on above: Performed By: #### C BC ####[facility] Guvvdtjztt[address] [place], [place] [id number] Frazier NEUT # 8.0 103/ul Critically high 1.4-6.5 [facility] Comment on above: Performed By: #### C BC ####[facility] Bjtovprozg[address] [place] [address]Dr. Wendie Frazier Neutrophils/100 WBC (Bld) 72.4 % Normal 43.0-75.0 [facility] Comment on above: Performed By: #### C BC ####[facility] Dyiputbzuk[address] [place] [phone] Frazier Platelet mean volume (Bld) [Entitic vol] 9.2 fL Critically low 9.5-13.5 [facility] Comment on above: Performed By: #### C BC ####[facility] Atdbqiktxa[address] [place] [address]DrFacundo Frazier PLT 398 103/ul Normal 150-450 [facility] Comment on above: Performed By: #### C BC ####[facility] Ohcjeyqykz80[address] [place] [address]DrFacundo Frazier RBC 3.08 106/ul Critically low 4.20-5.40 [facility] Comment on above: Performed By: #### C BC ####[facility] Qpbakhusbv08[address] [place], [place] [address]DrFacundo Frazier WBC 11.0 103/ul Normal 4.0-11.0 [facility] Comment on above: Performed By: #### C BC ####[facility] Ijhvawijuw[address] [place], [place] [address]DrFacundo Frazier GLYCOHEMOGLOBIN A1Con 2021 ADA RECOMMENDATION SEE BELOW Normal [facility] Comment on above: Result Comment: ADA RECOMMENDED LIMIT 4.0 - 6.0 ADA THERAPEUTIC TARGET < 7.0 ACTION SUGGESTED > 7.0 Performed By: #### A 1C ####[facility] Kjedirzvar[address] [place], [place] [address]DrFacundo Frazier Glucose [Mass/Vol] 154 mg/dL Normal [facility] Comment on above: Performed By: #### A 1C ####[facility] Rixbykuwbi364[address] [place], [place] [address]DrFacundo Frazier HbA1c (Bld) [Mass fraction] 7.0 % Critically high 4.5 -6.2 [facility] Comment on above: Performed By: #### A 1C ####[facility] Dj[address]lehk[address] [place] [address]Dr. Wendie Frazier IRON AND TIBCon 07-19-2022 % SATURATION 20.9 % Normal [facility] Comment on above: Performed By: #### B 12FOL, FETIBC ####[facility] Pyraotwfmk[address] [place] [address]Dr. Wendie Frazier Iron [Mass/Vol] 31.0 ug/dL Critically low 50.0-170.0 [facility] Comment on above: Performed By: #### B 12FOL, FETIBC ####[facility] Ctiutjucjj[address] [place] [address]Dr. Wendie Frazier TIBC DIRECT 148.0 ug/dL Critically low 250.0-450.0 [facility] Comment on above: Performed By: #### B 12FOL, FETIBC ####[facility] Qjcjtwydnx[address] [place] [address]Dr. Wendie Frazier POINT OF CARE GLUCOSEon 06-21 Glucose [Mass/Vol] 246 mg/dL Critically high [address] [place] [address] Comment on above: Performed By: #### P OCGLUC ####[facility] [address]ri[address]jpbr[address] [place] [address]Dr. Wendie Frazier Glucose [Mass/Vol] 210 mg/dL Critically high -106 [facility] Comment on above: Performed By: #### P OCGLUC ####[facility] Ibhjbrkttm95[address] [place] [address]Dr. Wendie Frazier Glucose [Mass/Vol] 238 mg/dL Critically high [address] [place] [address] Comment on above: Performed By: #### P OCGLUC ####[facility] Wjzumsrfen9[address] [place] [address]Dr. Wendie Frazier Glucose [Mass/Vol] 168 mg/dL Critically high -106 [facility] Comment on above: Performed By: #### P OCGLUC ####[facility] Qjcjsspmbs[address] [place] [address]Dr. Wendie Frazier PROF 14(COMP METB)on 022 Albumin [Mass/Vol] 1.5 g/dL Critically low 3.4-5.0 [facility] Comment on above: Performed By: #### C MP ####[facility] H[address]zcjhrejr[address] [place] [address]Dr. Wendie Frazier Albumin/Globulin [Mass ratio] 0.4 {ratio} Normal [facility] Comment on above: Performed By: #### C MP ####[facility] Julohfyimj9[address] [place], [place] [address]Dr. Wendie Frazier ALP [Catalytic activity/Vol] 129 U/L Critically high 46 -116 [facility] Comment on above: Performed By: #### C MP ####[facility] Dzbhranxih9[address] [place], [place] [address]Dr. Wendie Frazier ALT [Catalytic activity/Vol] 50 U/L Normal 14-59 [facility] Comment on above: Performed By: #### C MP ####[facility] Zieoddtqcp13[address] [place], [place] [address]Dr. Wendie Frazier Anion gap [Moles/Vol] 12.5 mmol/L Normal [facility] Comment on above: Performed By: #### C MP ####[facility] Qzyfwmnuoi3[address] [place], [place] [address]Dr. Wendie Frazier AST [Catalytic activity/Vol] 37 U/L Normal 15-37 [facility] Comment on above: Performed By: #### C MP ####[facility] Wkpenmpyml1506[address] [place], [place] [address]Dr. Wendie Frazier Bilirubin [Mass/Vol] 0.6 mg/dL Normal 0.2-1.0 [facility] Comment on above: Performed By: #### C MP ####[facility] Dozqraxufu1318[address] [place], [place] [address]Dr. Wendie Frazier Calcium [Mass/Vol] 8.3 mg/dL Critically low 8.5-10.1 [facility] Comment on above: Performed By: #### C MP ####[facility] [address]vdwpd[address] [place] [address]Dr. Wendie Frazier Chloride [Moles/Vol] 104 mmol/L Normal 98-107 [facility] Comment on above: Performed By: #### C MP ####[facility] Regkcroecw[address] [place] [address]Dr. Wendie Frazier CO2 [Moles/Vol] 22.3 mmol/L Normal 21.0-32.0 [facility] Comment on above: Performed By: #### C MP ####[facility] Yvhpwlxmar36[address] [place] [address]Dr. Wendie Frazier Creatinine [Mass/Vol] 1.03 mg/dL Critically high 0.55-1.02 [facility] Comment on above: Performed By: #### C MP ####[facility] Fsvwctikmg79[address] [place], [place] [address]Dr. Wendie Frazier EGFR-AF BAHAMIAN >60 Normal >=60 [facility] Comment on above: Performed By: #### C MP ####[facility] [address]lee[address]nllv[address] [place] [address]Dr. Wendie Frazier EGFR-NON AF BAH[place]IAN 55 mL/min/1.73m2 Critically low >=60 [facility] Comment on above: Performed By: #### C MP ####[facility] Tqhgasizsv[address] [place] [address]Dr. Wendie Frazier Globulin (S) [Mass/Vol] 4.2 g/dL Normal [facility] Comment on above: Performed By: #### C MP ####[facility] Lbdcccwbpa4584 [place] [address]Dr. Wendie Frazier Glucose [Mass/Vol] 135 mg/dL Critically high 74-106 [facility] Comment on above: Performed By: #### C MP ####[facility] Yqejaqvjiz[address] [place] [address]Dr. Wendie Frazier Potassium [Moles/Vol] 3.8 mmol/L Normal 3.5-5.1 [facility] Comment on above: Performed By: #### C MP ####[facility] Bmhhhcslvy[address] [place] [address]Dr. Wendie Frazier Protein [Mass/Vol] 5.7 g/dL Critically low 6.4-8.[address] [facility] Comment on above: Performed By: #### C MP ####[facility] [address]pjvadoco[address] [place] [address]Dr. Wendie Frazier Sodium [Moles/Vol] 135 mmol/L Critically low 136-[address] [facility] Comment on above: Performed By: #### C MP ####[facility] Mehkmdesgd5[address] [place], [place] [address]Dr. Wendie Frazier Urea nitrogen [Mass/Vol] 21.0 mg/dL Critically high 7.0-18 .0 [facility] Comment on above: Performed By: #### C MP ####[facility] Ordhizlvld9[address] [place], [place] [address]Dr. Wendie Frazier Urea nitrogen/Creatinine [Mass ratio] 20.4 mg/mg Normal [facility] Comment on above: Performed By: #### C MP ####[facility] Hrnlfybmga[address] [place], [place] [address]Dr. Wendie Frazier VIT B12 AND FOLATEon 022 Cobalamin (Vitamin B12) [Mass/Vol] 385.0 pg/mL Normal 193.0-986.0 [facility] Comment on above: Performed By: #### B 12FOL, FETIBC ####[facility] Hvljorchhw89[address] [place], [place] [address]Dr. Wendie Frazier FOLATE 10.40 ng/mL Normal 8.60-58.90 [facility] Comment on above: Performed By: #### B 12FOL, FETIBC ####[facility] Afrlcrzysu6[address] [place], [place] [address]Dr. Wendie Frazier CBC AUTO DIFFon 07-18-2022 BASO # 0.1 103/ul Normal 0.0-0.1 [facility] Comment on above: Performed By: #### C BC ####[facility] Shxfmmwpev4[address] [place], [place] [address]Dr. Wendie Frazier Basophils/100 WBC (Bld) 0.4 % Normal 0.2-2.0 [facility] Comment on above: Performed By: #### C BC ####[facility] [address]epasuxjvd[address] [place] [address]Dr. Wendie Frazier EO # 0.2 103/ul Normal 0.0-0.7 [facility] Comment on above: Performed By: #### C BC ####[facility] Smaosdxrmr[address] [place] [address]Dr. Wendie Frazier Eosinophils/100 WBC (Bld) 1.1 % Normal 0.9-7.0 [facility] Comment on above: Performed By: #### C BC ####[facility] Dfigvzibja[address] [place] [address]Dr. Wendie Frazier Erythrocyte distribution wid th (RBC) [Ratio] 15.3 % Critically high 11.0-15.0 [facility] Comment on above: Performed By: #### C BC ####[facility] Innfpkebrj26[address] [place] [address]Dr. Wendie Frazier Hematocrit (Bld) [Volume fraction] 25.2 % Critically low 36.0-48.0 [facility] Comment on above: Performed By: #### C BC ####[facility] Wtcopjbgqd2[address] [place] [address]Dr. Wendie Frazier Hemoglobin (Bld) [Mass/Vol] 8.0 g/dL Critically low 12.0 -16.0 [facility] Comment on above: Performed By: #### C BC ####[facility] Nklmmdkyji[address] [place] [address]Dr. Wendie Frazier IG # 0.32 10e3/ul Critically high 0.00-0.03 [facility] Comment on above: Performed By: #### C BC ####[facility] Dgzlbhaddd3[address] [place] [address]Dr. Wendie Frazier IG % 2.3 % Critically high 0.0-0.5 [facility] Comment on above: Performed By: #### C BC ####[facility] Ydyhuwqlvx13[address] [place] [address]Dr. Zeniaulysses Freddie LYMPH # 1.9 103/ul Normal 1.2-3.8 [facility] Comment on above: Performed By: #### C BC ####[facility] Akpaslfxyu47[address] [place] [address]Dr. Wendie Frazier Lymphocytes/100 WBC (Bld) 13.3 % Critically low 20.5-6 0.0 [facility] Comment on above: Performed By: #### C BC ####[facility] Ocgpjluete[address] [place] [address]Dr. Wendie Frazier MANUAL DIFF REQ NO Normal [facility] Comment on above: Performed By: #### C BC ####[facility] Aflgkrnsib27[address] [place] [address]Dr. Wendie Frazier MCH (RBC) [Entitic mass] 26.1 pg Critically low 26.7-34 .0 [facility] Comment on above: Performed By: #### C BC ####[facility] Mfqauqxelo01[address] [place] [address]Dr. Wendie Frazier MCHC (RBC) [Mass/Vol] 31.7 g/dL Normal 29.9-35.2 [facility] Comment on above: Performed By: #### C BC ####[facility] Ynxbnvjxhk80[address] [place] [address]Dr. Wendie Frazier MCV (RBC) [Entitic vol] 82.4 fL Normal 81.0-99.0 [facility] Comment on above: Performed By: #### C BC ####[facility] Fkynkaqchh[address] [place] [address]Dr. Wendie Frazier MONO # 1.0 103/ul Critically high 0.3-0.8 [facility] Comment on above: Performed By: #### C BC ####[facility] Wdxxmwbekb8964 [place] [address]Dr. Wendie Frazier Monocytes/100 WBC (Bld) 6.7 % Normal 1.7-12.0 [facility] Comment on above: Performed By: #### C BC ####[facility] Ufldqmypyf70[address] [place] [address]Dr. Wendie Frazier NEUT # 10.7 103/ul Critically high 1.4-6.5 [facility] Comment on above: Performed By: #### C BC ####[facility] Bdnmmatgoo7[address] [place] [address]Dr. Wendie Frazier Neutrophils/100 WBC (Bld) 76.2 % Critically high 43.0- 75.0 [facility] Comment on above: Performed By: #### C BC ####[facility] Ulyosatkoh7[address] [place] [address]Dr. Wendie Frazier Platelet mean volume (Bld) [Entitic vol] 9.5 fL Normal 9.5-13.5 [facility] Comment on above: Performed By: #### C BC ####[facility] Zusragjcwm[address] [place] [address]Dr. Wendie Frazier PLT 377 103/ul Normal 150-450 [facility] Comment on above: Performed By: #### C BC ####[facility] Rfcdorcrus0[address] [place] [address]Dr. Wendie Frazier RBC 3.06 106/ul Critically low 4.20-5.40 [facility] Comment on above: Performed By: #### C BC ####[facility] Ulwhapjogt[address] [place] [address]Dr. Wendie Frazier WBC 14.1 103/ul Critically high 4.0-11.0 [facility] Comment on above: Performed By: #### C BC ####[facility] Serkrkdypd88[address] [place] [address]Dr. Wendie Freddie POINT OF CARE GLUCOSEon 12-3 0-2021 Glucose [Mass/Vol] 177 mg/dL Critically high 74-106 [facility] Comment on above: Performed By: #### P OCGLUC ####[facility] Pxkucrvpze[address] [place] [address]Dr. Zeniaulysses Freddie Glucose [Mass/Vol] 146 mg/dL Critically high 74-106 [facility] Comment on above: Performed By: #### P OCGLUC ####[facility] Osjuncwhtd[address] [place] [address]Dr. Wendie Frazier Glucose [Mass/Vol] 360 mg/dL Critically high 74-106 [facility] Comment on above: Performed By: #### P OCGLUC ####[facility] Xgijhgklne37[address] [place] [address]Dr. Wendie Frazier PROF 14(COMP METB)on 022 Albumin [Mass/Vol] 1.6 g/dL Critically low 3.4-5.0 [facility] Comment on above: Performed By: #### C MP ####[facility] Kmnmrvqhyw[address] [place] [address]Dr. Wendie Frazier Albumin/Globulin [Mass ratio] 0.4 {ratio} Normal [facility] Comment on above: Performed By: #### C MP ####[facility] Nflqxuikge16[address] [place] [address]Dr. Wendie Frazier ALP [Catalytic activity/Vol] 130 U/L Critically high 46 -116 [facility] Comment on above: Performed By: #### C MP ####[facility] Bznuoviudz7[address] [place], [place] [address]Dr. Wendie Frazier ALT [Catalytic activity/Vol] 51 U/L Normal 14-59 [facility] Comment on above: Performed By: #### C MP ####[facility] Vutnvqapwt13[address] [place] [address]Dr. Wendie Frazier Anion gap [Moles/Vol] 13.7 mmol/L Normal [facility] Comment on above: Performed By: #### C MP ####[facility] Umgczsraza[address] [place] [address]Dr. Wendie Frazier AST [Catalytic activity/Vol] 45 U/L Critically high 15 -37 [facility] Comment on above: Performed By: #### C MP ####[facility] Gvdovnqaqm26[address] [place] [address]Dr. Wendie Frazier Bilirubin [Mass/Vol] 0.7 mg/dL Normal 0.2-1.0 [facility] Comment on above: Performed By: #### C MP ####[facility] Ctggichmhn33[address] [place] [address]Dr. Wendie Frazier Calcium [Mass/Vol] 8.2 mg/dL Critically low 8.5-10.1 Th e [facility] Comment on above: Performed By: #### C MP ####[facility] Zqmfpnxowf8515 [place] [address]Dr. Wednie Freddie Chloride [Moles/Vol] 102 mmol/L Normal 98-107 [facility] Comment on above: Performed By: #### C MP ####[facility] Pnypuxawve72[address] [place] [address]Dr. Wendie Frazier CO2 [Moles/Vol] 23.2 mmol/L Normal 21.0-32.0 [facility] Comment on above: Performed By: #### C MP ####[facility] Fdkbztlvbr02[address] [place], [place] [address]Dr. Zeniaulysses Freddie Creatinine [Mass/Vol] 1.18 mg/dL Critically high 0.55-1.02 [facility] Comment on above: Performed By: #### C MP ####[facility] O[address]qxkws[address] [place], [place] [address]Dr. Zeniaulysses Freddie EGFR-AF BAH[place]IAN 57 mL/min/1.73m2 Critically low >=60 [facility] Comment on above: Performed By: #### C MP ####[facility] Dxmszwbzut15[address] [place], [place] [address]Dr. Zeniaulysses Freddie EGFR-NON AF BAH[place]IAN 47 mL/min/1.73m2 Critically low >=60 [facility] Comment on above: Performed By: #### C MP ####[facility] Fykxdybvto[address] [place], [place] [address]Dr. Wendie Frazier Globulin (S) [Mass/Vol] 4.3 g/dL Normal [facility] Comment on above: Performed By: #### C MP ####[facility] Ckdhgnutck55[address] [place] [address]Dr. Wendie Frazier Glucose [Mass/Vol] 186 mg/dL Critically high 74-106 [facility] Comment on above: Performed By: #### C MP ####[facility] Ucpmcaijxu7586 [place] [address]Dr. Wendie Frazier Potassium [Moles/Vol] 3.9 mmol/L Normal 3.5-5.1 [facility] Comment on above: Performed By: #### C MP ####[facility] Ipqkoxvodn70[address] [place], [place] [address]Dr. Wendie Frazier Protein [Mass/Vol] 5.9 g/dL Critically low 6.4-8.[address] [facility] Comment on above: Performed By: #### C MP ####[facility] Czltjxkeda264[address] [place], [place] [address]Dr. Wendie Frazier Sodium [Moles/Vol] 135 mmol/L Critically low 136-[address] [facility] Comment on above: Performed By: #### C MP ####[facility] Yjnoprbdmb[address] [place], [place] [address]Dr. Wendie Frazier Urea nitrogen [Mass/Vol] 24.0 mg/dL Critically high 7.0-18 .0 [facility] Comment on above: Performed By: #### C MP ####[facility] Fxdhatzrwr044[address] [place], [place] [address]Dr. Wendie Frazier Urea nitrogen/Creatinine [Mass ratio] 20.3 mg/mg Normal [facility] Comment on above: Performed By: #### C MP ####[facility] Ksoccmgpzq6[address] [place], [place] [address]Dr. Wendie Frazier CBC AUTO DIFFon 07-17-2022 BASO # 0.0 103/ul Normal 0.0-0.1 [facility] Comment on above: Performed By: #### C BC ####[facility] Pdtydwckzn7[address] [place], [place] [address]Dr. Wendie Frazier Basophils/100 WBC (Bld) 0.3 % Normal 0.2-2.0 [facility] Comment on above: Performed By: #### C BC ####[facility] Pxxvjvsdeh8[address] [place], [place] [address]Dr. Wendie Frazier EO # 0.1 103/ul Normal 0.0-0.7 [facility] Comment on above: Performed By: #### C BC ####[facility] Dpmcxigukb3698 [place] [address]Dr. Wendie Frazier Eosinophils/100 WBC (Bld) 0.6 % Critically low 0.9-7. 0 [facility] Comment on above: Performed By: #### C BC ####[facility] Kjayguxxgw[address] [place], [place] [address]Dr. Wendie Frazier Erythrocyte distribution wid th (RBC) [Ratio] 14.8 % Normal 11.0-15.0 [facility] Comment on above: Performed By: #### C BC ####[facility] Wbusyeeyur15[address] [place], [place] [address]Dr. Wendie Frazier Hematocrit (Bld) [Volume fraction] 24.3 % Critically low 36.0-48.0 [facility] Comment on above: Performed By: #### C BC ####[facility] Mqdecchzcl[address] [place], [place] [address]Dr. Wendie Frazier Hemoglobin (Bld) [Mass/Vol] 7.9 g/dL Critically low 12.0 -16.0 [facility] Comment on above: Performed By: #### C BC ####[facility] Whsmlnxklt13[address] [place], [place] [address]Dr. Wendie Frazier IG # 0.14 10e3/ul Critically high 0.00-0.03 [facility] Comment on above: Performed By: #### C BC ####[facility] Ubwqxqzjxz[address] [place], [place] [address]Dr. Wendie Frazier IG % 0.9 % Critically high 0.0-0.5 [facility] Comment on above: Performed By: #### C BC ####[facility] Xojgxxemtq[address] [place], [place] [address]Dr. Wendie Frazier LYMPH # 1.5 103/ul Normal 1.2-3.8 The [facility] ospital Comment on above: Performed By: #### C BC ####[facility] Pvrvneomfp28[address] [place] [id number]. Zeniaulysses Frazier Lymphocytes/100 WBC (Bld) 9.6 % Critically low 20.5-6 0.0 [facility] Comment on above: Performed By: #### C BC ####[facility] Upskkckvas49[address] [place] [id number]. Wendie Frazier MANUAL DIFF REQ NO Normal [facility] Comment on above: Performed By: #### C BC ####[facility] Rymnqkfovq6790 [place] [id number]. Wendie Frazier MCH (RBC) [Entitic mass] 26.0 pg Critically low 26.7-34 .0 [facility] Comment on above: Performed By: #### C BC ####[facility] Ogugsfntlq[address] [place] [address]Dr. Wendie Frazier MCHC (RBC) [Mass/Vol] 32.5 g/dL Normal 29.9-35.2 [facility] Comment on above: Performed By: #### C BC ####[facility] Qtgeodwsuc1862 [place] [id number]. Wendie Frazier MCV (RBC) [Entitic vol] 79.9 fL Critically low 81.0-99. 0 [facility] Comment on above: Performed By: #### C BC ####[facility] Nunagelfwm[address]65 [place] [id number]. Wendie Frazier MONO # 1.3 103/ul Critically high 0.3-0.8 [facility] Comment on above: Performed By: #### C BC ####[facility] Rcrczossdj9517 [place] [id number]. Wendie Frazier Monocytes/100 WBC (Bld) 8.2 % Normal 1.7-12.0 [facility] Comment on above: Performed By: #### C BC ####[facility] Ymymceefkw[address] [place], [place] [address]Dr. Wendie Frazier NEUT # 12.7 103/ul Critically high 1.4-6.5 [facility] Comment on above: Performed By: #### C BC ####[facility] Brfzkqrffk1246 [place], [place] [address]Lp. Wendie Frazier Neutrophils/100 WBC (Bld) 80.4 % Critically high 43.0- 75.0 [facility] Comment on above: Performed By: #### C BC ####[facility] Fphzerwghe5334 [place] [phone]. Wendie Frazier Platelet mean volume (Bld) [Entitic vol] 9.7 fL Normal 9.5-13.5 [facility] Comment on above: Performed By: #### C BC ####[facility] Utovkantok4172 [place], [place] [address]Fc. Wendie Frazier PLT 351 103/ul Normal 150-450 [facility] Comment on above: Performed By: #### C BC ####[facility] Ljodudtceg9994 [place] [phone]. Wendie Frazier RBC 3.04 106/ul Critically low 4.20-5.40 [facility] Comment on above: Performed By: #### C BC ####[facility] Eppuecyhpx4758 [place] [address]Dr. Wendie Frazier WBC 15.8 103/ul Critically high 4.0-11.0 [facility] Comment on above: Performed By: #### C BC ####[facility] Rsyyxknzxk5[address] [place], [place] [address]Dr. Wendie Frazier CULTURE ANAEROBICon 07-17-20 22 CULTURE ANAEROBIC Culture Observations : NO GROWTH OF ANAEROBES AT 72 HOURS. Normal The [facility] Comment on above: Performed By: #### A NACX ####[facility] Uryoppyzor6[address] [place] [phone]. Wendie Frazier CULTURE URINEon 07-17-2022 CULTURE URINE Normal [facility] Comment on above: Performed By: #### U RCX ####[facility] Twrcvrsmhf0761 [place] [phone]. Wendie Frazier GRAM STAINon 07-17-2022 COMMENTS NO ORGANISMS OBSERVED Normal [facility] Comment on above: Performed By: #### G STAIN ####[facility] Csajjeljhn0872 [place] [phone]. Wendie Frazier DIPHTHEROIDS Normal [facility] Comment on above: Performed By: #### G STAIN ####[facility] Oyhzgkjlag60[address] [place] [address]Dr. Wendie Frazier EPITHELIALS Normal [facility] Comment on above: Performed By: #### G STAIN ####[facility] Kjfonegmzz7083 [place] [address]Dr. Wendie Frazier FUNGAL ELEMENTS Normal [facility] Comment on above: Performed By: #### G STAIN ####[facility] Dwpexjondd7605 [place] [address]Dr. Wendie Frazier GRAM NEG BACILLI Normal [facility] Comment on above: Performed By: #### G STAIN ####[facility] Llvmghknfo4[address] [place], [place] [address]Dr. Wendie Frazier GRAM NEG DIPPLOCOCCI Normal The [facility] Comment on above: Performed By: #### G STAIN ####[facility] Lsqmdtuewk[address] [place], [place] [address]Dr. Wendie Frazier GRAM POS BACILLI Normal [facility] Comment on above: Performed By: #### G STAIN ####[facility] Rbpryqajmm[address] [place], [place] [address]Dr. Wendie Frazier GRAM POSITIVE COCCI Normal The [facility] Comment on above: Performed By: #### G STAIN ####[facility] Utbsfykvhp[address] [place], [place] [address]Dr. Wendie Frazier GRAM STAIN SOURCE Lt Heel Bone Normal The [facility] Comment on above: Performed By: #### G STAIN ####[facility] Cuarcfjpqe10[address] [place] [address]Dr. Wendie Frazier GS_DIPTH Normal [facility] Comment on above: Performed By: #### G STAIN ####[facility] Tedmksixtc5965 [place] [address]Dr. Wendie Frazier WBC RARE Normal [facility] Comment on above: Performed By: #### G STAIN ####[facility] Xhtjoqdnta[address] [place], [place] [address]Dr. Wendie Freddie POINT OF CARE GLUCOSEon 06-20 Glucose [Mass/Vol] 246 mg/dL Critically high 74-106 [facility] Comment on above: Performed By: #### P OCGLUC ####[facility] Ioibamacow2576 [place] [phone]. Wendie Freddie Glucose [Mass/Vol] 201 mg/dL Critically high 74-106 [facility] Comment on above: Performed By: #### P OCGLUC ####[facility] Emgysfodex44[address] [place] [address]Dr. Wendie Frazier Glucose [Mass/Vol] 221 mg/dL Critically high -106 [facility] Comment on above: Performed By: #### P OCGLUC ####[facility] Xqugtxcbpj0329 [place] [address]Dr. Wendie Frazier PRBC LEUKOREDUCEDon 07-17-20 PRBC LEUKOREDUCED Normal [facility] Comment on above: Performed By: #### P RBC ####[facility] Dqdguylohw3293 [place] [address]Dr. Wendie Frazier PROF 14(COMP METB)on 022 Albumin [Mass/Vol] 1.4 g/dL Critically low 3.4-5.[address] [facility] Comment on above: Performed By: #### C MP ####[facility] Edqbmmwmaj6539 [place] [address]Dr. Wendie Frazier Albumin/Globulin [Mass ratio] 0.3 {ratio} Normal [facility] Comment on above: Performed By: #### C MP ####[facility] Xftqdkwair1405 [place] [address]Dr. Wendie Frazier ALP [Catalytic activity/Vol] 111 U/L Normal 46-116 [facility] Comment on above: Performed By: #### C MP ####[facility] Yoaacwabrc5593 [place] [address]Dr. Wendie Frazier ALT [Catalytic activity/Vol] 38 U/L Normal 14-59 [facility] Comment on above: Performed By: #### C MP ####[facility] Rphwrretbi9433 [place], [place] [address]Bo. Wendie Frazier Anion gap [Moles/Vol] 12.4 mmol/L Normal [facility] Comment on above: Performed By: #### C MP ####[facility] Meshvjfevy8001 [place], [place] [address]Bl. Wendie Frazier AST [Catalytic activity/Vol] 35 U/L Normal 15-37 [facility] Comment on above: Performed By: #### C MP ####[facility] Jhdabkumqr4236 [place] [phone]. Wendie Frazier Bilirubin [Mass/Vol] 0.8 mg/dL Normal 0.2-1.0 [facility] Comment on above: Performed By: #### C MP ####[facility] Ubvvbkvqwq1311 [place] [address]Dr. Wendie Frazier Calcium [Mass/Vol] 8.0 mg/dL Critically low 8.5-10.1 [facility] Comment on above: Performed By: #### C MP ####[facility] Bkqxdipkct0288 [place] [address]Dr. Wendie Frazier Chloride [Moles/Vol] 102 mmol/L Normal 98-107 [facility] Comment on above: Performed By: #### C MP ####[facility] Teqxjmqtbk5153 [place] [address]Dr. Wendie Frazier CO2 [Moles/Vol] 22.5 mmol/L Normal 21.0-32.0 [facility] Comment on above: Performed By: #### C MP ####[facility] Vawgedfkru4091 [place] [address]Dr. Wendie Frazier Creatinine [Mass/Vol] 1.21 mg/dL Critically high 0.55-1.02 [facility] Comment on above: Performed By: #### C MP ####[facility] Dbmumsxgtz3240 [place] [address]Dr. Wendie Frazier EGFR-AF BAHAMIAN 55 mL/min/1.73m2 Critically low >=60 [facility] Comment on above: Performed By: #### C MP ####[facility] Hjponwojyf9151 [place] [address]Dr. Wendie Frazier EGFR-NON AF BAH[place]IAN 46 mL/min/1.73m2 Critically low >=60 [facility] Comment on above: Performed By: #### C MP ####[facility] Bwvuvurszh5136 [place] [address]Dr. Wendie Frazier Globulin (S) [Mass/Vol] 4.2 g/dL Normal [facility] Comment on above: Performed By: #### C MP ####[facility] Rqptfpwqnq3710 [place] [address]Dr. Wendie Frazier Glucose [Mass/Vol] 231 mg/dL Critically high 74-106 [facility] Comment on above: Performed By: #### C MP ####[facility] Okfhzvnqcm0475 [place] [address]Dr. Wendie Frazier Potassium [Moles/Vol] 3.9 mmol/L Normal 3.5-5.1 [facility] Comment on above: Performed By: #### C MP ####[facility] Fdmewefikb2937 [place] [address]Dr. Wendie Frazier Protein [Mass/Vol] 5.6 g/dL Critically low 6.4-8.2 [facility] Comment on above: Performed By: #### C MP ####[facility] Eicsdfaqgl7198 [place] [address]Dr. Wendie Frazier Sodium [Moles/Vol] 133 mmol/L Critically low 136-[address] [facility] Comment on above: Performed By: #### C MP ####[facility] Srhrzpubys3757 [place] [address]Dr. Wendie Frazier Urea nitrogen [Mass/Vol] 28.0 mg/dL Critically high 7.0-18 .0 [facility] Comment on above: Performed By: #### C MP ####[facility] Uubpkdkpcq5654 [place] [address]Dr. Wendie Frazier Urea nitrogen/Creatinine [Mass ratio] 23.1 mg/mg Normal [facility] Comment on above: Performed By: #### C MP ####[facility] Qvbdkckrqv9[address] [place], [place] [address]Dr. Wendie Frazier XR FOOT LT MIN 3 VIEWSon XR FOOT LT MIN 3 VIEWS Normal Th e [facility] ABO RH RETYPEon 07-16-2022 ABO and Rh group Nom (Bld) DONE Normal The [facility] Comment on above: Performed By: #### R ETYPE ####[facility] Jryylqfncd15[address] [place], [place] [address]Dr. Wendie Frazier CBC AUTO DIFFon 07-16-2022 BASO # 0.0 103/ul Normal 0.0-0.1 [facility] Comment on above: Performed By: #### C BC ####[facility] Xwdriaexhy59[address] [place], [place] [address]Dr. Wendie Frazier Basophils/100 WBC (Bld) 0.2 % Normal 0.2-2.0 [facility] Comment on above: Performed By: #### C BC ####[facility] Vhmgotklqc89[address] [place], [place] [address]Dr. Zeniaulysses Frazier EO # 0.1 103/ul Normal 0.0-0.7 [facility] Comment on above: Performed By: #### C BC ####[facility] Mrjcishlyn65[address] [place], [place] [address]Dr. Wendie Frazier Eosinophils/100 WBC (Bld) 0.6 % Critically low 0.9-7. 0 [facility] Comment on above: Performed By: #### C BC ####[facility] Byddchobri[address] [place], [place] [address]Dr. Zeniaulysses Frazier Erythrocyte distribution wid th (RBC) [Ratio] 14.8 % Normal 11.0-15.0 [facility] pital Comment on above: Performed By: #### C BC ####[facility] Wiwwausyyw74[address] [place], [place] [address]Dr. Wendie Frazier Hematocrit (Bld) [Volume fraction] 25.9 % Critically low 36.0-48.0 [facility] pital Comment on above: Performed By: #### C BC ####[facility] Oywsplntxj6048 [place] [id number]. Wendie Frazier Hemoglobin (Bld) [Mass/Vol] 8.6 g/dL Critically low 12.0 -16.0 [facility] Comment on above: Performed By: #### C BC ####[facility] Thxkriwjnt5299 [place] [address]Dr. Wendie Frazier IG # 0.15 10e3/ul Critically high 0.00-0.03 [facility] Comment on above: Performed By: #### C BC ####[facility] Ynhhgsilkb0[address] [place], [place] [address]Dr. Wendie Frazier IG % 0.8 % Critically high 0.0-0.5 [facility] Comment on above: Performed By: #### C BC ####[facility] Zkvdcigijp668[address] [place], [place] [address]Dr. Zeniaulysses Freddie LYMPH # 1.6 103/ul Normal 1.2-3.8 [facility] Comment on above: Performed By: #### C BC ####[facility] Tswtajmgyh8[address] [place], [place] [address]Dr. Wendie Frazier Lymphocytes/100 WBC (Bld) 8.7 % Critically low 20.5-6 0.0 [facility] Comment on above: Performed By: #### C BC ####[facility] Uhitjpznre58[address] [place], [place] [address]Dr. Wendie Frazier MANUAL DIFF REQ NO Normal [facility] Comment on above: Performed By: #### C BC ####[facility] Dwmxtdcsyb7[address] [place], [place] [address]Dr. Wendie Frazier MCH (RBC) [Entitic mass] 26.7 pg Normal 26.7-34.0 [facility] Comment on above: Performed By: #### C BC ####[facility] Uiupdlobcm3833[address] [place], [place] [address]Dr. Wendie Frazier MCHC (RBC) [Mass/Vol] 33.2 g/dL Normal 29.9-35.2 [facility] Comment on above: Performed By: #### C BC ####[facility] Mnticubmkp9093 [place] [address]Dr. Wendie Frazier MCV (RBC) [Entitic vol] 80.4 fL Critically low 81.0-99. 0 [facility] Comment on above: Performed By: #### C BC ####[facility] Mnmbuaihnt3093 [place] [address]Dr. Wendie Frazier MONO # 1.3 103/ul Critically high 0.3-0.8 [facility] Comment on above: Performed By: #### C BC ####[facility] Irqfkcnmty6841 [place] [address]Dr. Wendie Rfazier Monocytes/100 WBC (Bld) 7.1 % Normal 1.7-12.0 [facility] Comment on above: Performed By: #### C BC ####[facility] Iyovkfcedb[address] [place], [place] [address]Dr. Wendie Frazier NEUT # 15.0 103/ul Critically high 1.4-6.5 [facility] Comment on above: Performed By: #### C BC ####[facility] Wdshugdjtd884[address] [place], [place] [address]Dr. Wendie Frazier Neutrophils/100 WBC (Bld) 82.6 % Critically high 43.0- 75.0 [facility] Comment on above: Performed By: #### C BC ####[facility] Kcrthwwojc7[address] [place], [place] [address]Dr. Wendie Frazier Platelet mean volume (Bld) [Entitic vol] 9.6 fL Normal 9.5-13.5 [facility] Comment on above: Performed By: #### C BC ####[facility] Lsdrffvbgq6100 [place] [address]Dr. Wendie Frazier PLT 344 103/ul Normal 150-450 [facility] Comment on above: Performed By: #### C BC ####[facility] Wkqyzjxgkq7635 [place] [address]Dr. Zeniaulysses Freddie RBC 3.22 106/ul Critically low 4.20-5.40 [facility] Comment on above: Performed By: #### C BC ####[facility] Smfruvdmge5081 [place] [address]Dr. Wendie Frazier WBC 18.1 103/ul Critically high 4.0-11.0 [facility] Comment on above: Performed By: #### C BC ####[facility] Uaazatheaj5087 [place] [address]Dr. Wendie Frazier BASO # 0.0 103/ul Normal 0.0-0.1 [facility] Comment on above: Performed By: #### C BC ####[facility] Akftzhkltm[address] [place], [place] [address]Dr. Zeniaulysses Frazier Basophils/100 WBC (Bld) 0.2 % Normal 0.2-2.0 [facility] Comment on above: Performed By: #### C BC ####[facility] Cyncuqiyiv90[address] [place], [place] [address]Dr. Wendie Frazier EO # 0.1 103/ul Normal 0.0-0.7 The [facility] ostal Comment on above: Performed By: #### C BC ####[facility] Pjpnzuwadl8[address] [place], [place] [address]Dr. Zeniaulysses Frazier Eosinophils/100 WBC (Bld) 0.7 % Critically low 0.9-7. 0 The [facility] Comment on above: Performed By: #### C BC ####[facility] Ycmleaqjxu18[address] [place], [place] [address]Dr. Zeniaulysses Frazier Erythrocyte distribution wid th (RBC) [Ratio] 15.0 % Normal 11.0-15.0 [facility] pital Comment on above: Performed By: #### C BC ####[facility] Fphivgzwaz[address] [place], [place] [address]Dr. Zeniaulysses Frazier Hematocrit (Bld) [Volume fraction] 24.3 % Critically low 36.0-48.0 [facility] pital Comment on above: Performed By: #### C BC ####[facility] Nrswzzeflo44[address] [place], [place] [address]Dr. Zeniaulysses Frazier Hemoglobin (Bld) [Mass/Vol] 7.9 g/dL Critically low 12.0 -16.0 [facility] Comment on above: Performed By: #### C BC ####[facility] Dtljgitohq6350 [place] [address]DrFacundo Frazier IG # 0.11 10e3/ul Critically high 0.00-0.03 [facility] Comment on above: Performed By: #### C BC ####[facility] Ewldlblgwv9256 [place] [address]DrFacundo Frazier IG % 0.6 % Critically high 0.0-0.5 [facility] Comment on above: Performed By: #### C BC ####[facility] Idmsbmskri5955 [place] [address]DrFacundo Frazier LYMPH # 1.2 103/ul Normal 1.2-3.8 [facility] Comment on above: Performed By: #### C BC ####[facility] Dmrassjfij4362 [place] [address]DrFacundo Frazier Lymphocytes/100 WBC (Bld) 6.6 % Critically low 20.5-6 0.0 [facility] Comment on above: Performed By: #### C BC ####[facility] Mbjfzzyfsj4796 [place] [address]DrFacundo Frazier MANUAL DIFF REQ NO Normal [facility] Comment on above: Performed By: #### C BC ####[facility] Vpbocjcfqd4811 [place] [address]DrFacundo Frazier MCH (RBC) [Entitic mass] 25.8 pg Critically low 26.7-34 .0 [facility] Comment on above: Performed By: #### C BC ####[facility] Tdzugsgknb4681 [place] [address]DrFacundo Frazier MCHC (RBC) [Mass/Vol] 32.5 g/dL Normal 29.9-35.2 [facility] Comment on above: Performed By: #### C BC ####[facility] Wqghivhzhi4261 [place] [address]DrFacundo Frazier MCV (RBC) [Entitic vol] 79.4 fL Critically low 81.0-99. 0 [facility] Comment on above: Performed By: #### C BC ####[facility] Epctckzwyr3475 [place] [address]DrFacundo Frazier MONO # 1.3 103/ul Critically high 0.3-0.8 [facility] Comment on above: Performed By: #### C BC ####[facility] Umwbmxfcom0214 [place] [address]DrFacundo Frazier Monocytes/100 WBC (Bld) 7.2 % Normal 1.7-12.0 [facility] Comment on above: Performed By: #### C BC ####[facility] Mtfldtxubz0500 [place] [address]DrFacundo Frazier NEUT # 14.8 103/ul Critically high 1.4-6.5 [facility] Comment on above: Performed By: #### C BC ####[facility] Zqarbexirf7830 [place] [address]Dr. Wendie Frazier Neutrophils/100 WBC (Bld) 84.7 % Critically high 43.0- 75.0 [facility] Comment on above: Performed By: #### C BC ####[facility] Jcrlhxgfse6751 [place] [phone] Frazier Platelet mean volume (Bld) [Entitic vol] 9.5 fL Normal 9.5-13.5 [facility] Comment on above: Performed By: #### C BC ####[facility] Eiaaqgeext2092 [place] [address]Dr. Wendie Frazier PLT 357 103/ul Normal 150-450 [facility] ospital Comment on above: Performed By: #### C BC ####[facility] Pkdpcqudqa6030 [place] [address]DrFacundo Frazier RBC 3.06 106/ul Critically low 4.20-5.40 [facility] Comment on above: Performed By: #### C BC ####[facility] Fvpfadbeov9336 [place] [address]DrFacundo Fraizer WBC 17.5 103/ul Critically high 4.0-11.0 [facility] Comment on above: Performed By: #### C BC ####[facility] Nepysgunuv28[address] [place], [place] [address]Dr. Wendie Frazier BASO # 0.0 103/ul Normal 0.0-0.1 [facility] ospital Comment on above: Performed By: #### C BC ####[facility] Ylctticbtc37[address] [place], [place] [address]Dr. Wendie Frazier Basophils/100 WBC (Bld) 0.2 % Normal 0.2-2.0 [facility] Comment on above: Performed By: #### C BC ####[facility] Rxmgvtdrmz76[address] [place], [place] [address]Dr. Wendie Frazier EO # 0.1 103/ul Normal 0.0-0.7 [facility] Comment on above: Performed By: #### C BC ####[facility] Jlotiltfld132[address] [place], [place] [address]Dr. Wendie Frazier Eosinophils/100 WBC (Bld) 0.7 % Critically low 0.9-7. 0 [facility] Comment on above: Performed By: #### C BC ####[facility] Xzshnbnrrw40[address] [place], [place] [address]Dr. Zeniaulysses Frazier Erythrocyte distribution wid th (RBC) [Ratio] 14.6 % Normal 11.0-15.0 [facility] pital Comment on above: Performed By: #### C BC ####[facility] Kgsvkzfeug8224[address] [place], [place] [address]Dr. Wendie Frazier Hematocrit (Bld) [Volume fraction] 21.9 % Critically low 36.0-48.0 [facility] pital Comment on above: Performed By: #### C BC ####[facility] Skprjznobm[address] [place], [place] [address]Dr. Wendie Frazier Hemoglobin (Bld) [Mass/Vol] 6.9 g/dL Critically low 12.0 -16.0 [facility] Comment on above: Performed By: #### C BC ####[facility] Avwcwteptu0334 [place] [id number]. Wendie Frazier IG # 0.11 10e3/ul Critically high 0.00-0.03 [facility] Comment on above: Performed By: #### C BC ####[facility] Vfwjqzffoe5685 [place] [address]Dr. Wendie Frazier IG % 0.6 % Critically high 0.0-0.5 [facility] Comment on above: Performed By: #### C BC ####[facility] Bfhqsugyxp0938 [place] [address]Dr. Wendie Freddie LYMPH # 1.6 103/ul Normal 1.2-3.8 [facility] Comment on above: Performed By: #### C BC ####[facility] Yglupnbtpv0870 [place] [address]Dr. Wendie Freddie Lymphocytes/100 WBC (Bld) 8.8 % Critically low 20.5-6 0.0 [facility] Comment on above: Performed By: #### C BC ####[facility] Ebyyeckcqi40[address] [place], [place] [address]Dr. Wendie Frazier MANUAL DIFF REQ NO Normal [facility] Comment on above: Performed By: #### C BC ####[facility] [facility] Wlcswinigd[address] [place], [place] [address]Dr. Wendie Frazier MCH (RBC) [Entitic mass] 25.0 pg Critically low 26.7-34 .0 [facility] Comment on above: Performed By: #### C BC ####[facility] [address] [place] [address]Dr. Wendie Frazier MCHC (RBC) [Mass/Vol] 31.5 g/dL Normal 29.9-35.2 [facility] Comment on above: Performed By: #### C BC ####[facility] Kfzrrdvtfi[address] [place], [place] [address]Dr. Wendie Frazier MCV (RBC) [Entitic vol] 79.3 fL Critically low 81.0-99. 0 [facility] Comment on above: Performed By: #### C BC ####[facility] Zonotxrvnm[address] [place] [id number]. Wendie Frazier MONO # 1.4 103/ul Critically high 0.3-0.8 [facility] Comment on above: Performed By: #### C BC ####[facility] Ljtkagikru[address] [place] [id number]. Wendie Frazier Monocytes/100 WBC (Bld) 7.9 % Normal 1.7-12.0 [facility] Comment on above: Performed By: #### C BC ####[facility] Geikcbzwvw[address] [place] [id number]. Wendie Frazier NEUT # 14.7 103/ul Critically high 1.4-6.5 [facility] Comment on above: Performed By: #### C BC ####[facility] Sqxxsrdwzw39[address] [place] [id number]. Wendie Frazier Neutrophils/100 WBC (Bld) 81.8 % Critically high 43.0- 75.0 [facility] Comment on above: Performed By: #### C BC ####[facility] Irrnvkvuin[address] [place] [id number]. Wendie Frazier Platelet mean volume (Bld) [Entitic vol] 9.9 fL Normal 9.5-13.5 [facility] Comment on above: Performed By: #### C BC ####[facility] Pbgmbaizrw[address] [place] [id number]. Wendie Frazier PLT 347 103/ul Normal 150-450 [facility] Comment on above: Performed By: #### C BC ####[facility] Aahivtiqfr[address] [place] [id number]. Wendie Frazier RBC 2.76 106/ul Critically low 4.20-5.40 [facility] Comment on above: Performed By: #### C BC ####[facility] Accqjoqhnv[address] [place] [id number]. Wendie Frazier WBC 17.9 103/ul Critically high 4.0-11.0 [facility] Comment on above: Performed By: #### C BC ####[facility] Ugndphlakw[address] [place] [address]Dr. Wendie Frazier CT ABD/PELVIS WO CONon 07-16 CT ABD/PELVIS WO CON Normal [facility] POINT OF CARE GLUCOSEon 06-20 Glucose [Mass/Vol] 241 mg/dL Critically high 74-106 [facility] Comment on above: Performed By: #### P OCGLUC ####[facility] Gxbbgxekhf[address] [place] [address]Dr. Wendie Frazier Glucose [Mass/Vol] 204 mg/dL Critically high 74-106 [facility] Comment on above: Performed By: #### P OCGLUC ####[facility] Bcyzccpvtd[address] [place], [place] [address]Dr. Wendie Frazier Glucose [Mass/Vol] 62 mg/dL Critically low 74-106 [facility] Comment on above: Performed By: #### P OCGLUC ####[facility] Doimfuslgo[address] [place], [place] [address]Dr. Wendie Frazier PROF 14(COMP METB)on 022 Albumin [Mass/Vol] 1.6 g/dL Critically low 3.4-5.0 [facility] Comment on above: Performed By: #### C MP ####[facility] Pmlxqamspe[address] [place], [place] [address]Dr. Wendie Frazier Albumin/Globulin [Mass ratio] 0.4 {ratio} Normal [facility] Comment on above: Performed By: #### C MP ####[facility] Otvirrjmdn[address] [place], [place] [address]Dr. Wendie Frazier ALP [Catalytic activity/Vol] 107 U/L Normal 46-116 [facility] Comment on above: Performed By: #### C MP ####[facility] Pdynrwytbp[address] [place], [place] [address]Dr. Wendie Frazier ALT [Catalytic activity/Vol] 37 U/L Normal 14-59 [facility] Comment on above: Performed By: #### C MP ####[facility] Iplmxhhcxt39[address] [place], [place] [address]Dr. Wendie Frazier Anion gap [Moles/Vol] 13.0 mmol/L Normal [facility] Comment on above: Performed By: #### C MP ####[facility] Yrfutcrytz[address] [place] [address]Dr. Wendie Frazier AST [Catalytic activity/Vol] 53 U/L Critically high 15 -37 [facility] Comment on above: Performed By: #### C MP ####[facility] Zeitkfofvp399[address] [place] [id number]. Wendie Freddie Bilirubin [Mass/Vol] 0.5 mg/dL Normal 0.2-1.0 [facility] Comment on above: Performed By: #### C MP ####[facility] Fnqfvgaubm73[address] [place] [address]Dr. Wendie Freddie Calcium [Mass/Vol] 8.1 mg/dL Critically low 8.5-10.1 [facility] Comment on above: Performed By: #### C MP ####[facility] Duggdtngwx96[address] [place], [place] [address]Dr. Wendie Freddie Chloride [Moles/Vol] 101 mmol/L Normal 98-107 [facility] Comment on above: Performed By: #### C MP ####[facility] Xwqfsnidpp[address] [place], [place] [address]Dr. Wendie Freddie CO2 [Moles/Vol] 25.0 mmol/L Normal 21.0-32.0 [facility] Comment on above: Performed By: #### C MP ####[facility] Bcraxdeqmk[address] [place], [place] [address]Dr. Wendie Freddie Creatinine [Mass/Vol] 1.41 mg/dL Critically high 0.55-1.02 [facility] Comment on above: Performed By: #### C MP ####[facility] Nhdbirokje[address] [place], [place] [address]Dr. Wendie Frazier EGFR-AF BAHAMIAN 46 mL/min/1.73m2 Critically low >=60 [facility] Comment on above: Performed By: #### C MP ####[facility] Ogctgmpmgy[address] [place], [place] [address]Dr. Wendie Frazier EGFR-NON AF BAH[place]IAN 38 mL/min/1.73m2 Critically low >=60 [facility] Comment on above: Performed By: #### C MP ####[facility] Rhzlfssucy[address] [place] [address]Dr. Wendie Frazier Globulin (S) [Mass/Vol] 4.1 g/dL Normal [facility] Comment on above: Performed By: #### C MP ####[facility] Xvkcpikycz[address] [place], [place] [address]Dr. Wendie Frazier Glucose [Mass/Vol] 71 mg/dL Critically low 74-[address] [facility] Comment on above: Performed By: #### C MP ####[facility] Ukhmynvnbu7[address] [place], [place] [address]Dr. Wendie Frazier Potassium [Moles/Vol] 4.0 mmol/L Normal 3.5-5.1 [facility] Comment on above: Performed By: #### C MP ####[facility] Zhantbtrei[address] [place], [place] [address]Dr. Wendie Frazier Protein [Mass/Vol] 5.7 g/dL Critically low 6.4-8.[address] [facility] Comment on above: Performed By: #### C MP ####[facility] Jhkdgmtrmd7[address] [place], [place] [address]Dr. Wendie Frazier Sodium [Moles/Vol] 135 mmol/L Critically low 136-[address] [facility] Comment on above: Performed By: #### C MP ####[facility] Iyicjifnoy[address] [place], [place] [address]Dr. Wendie Frazier Urea nitrogen [Mass/Vol] 36.0 mg/dL Critically high 7.0-18 .0 [facility] Comment on above: Performed By: #### C MP ####[facility] Andatcibje6943[address] [place], [place] [address]Dr. Wendie Frazier Urea nitrogen/Creatinine [Mass ratio] 25.5 mg/mg Normal [facility] Comment on above: Performed By: #### C MP ####[facility] Qvftrgbhwk[address] [place], [place] [address]Dr. Wendie Frazier TYPE AND SCREENon 07-16-2022 TYPE AND SCREEN Negative Normal [facility] Comment on above: Performed By: #### T NS ####[facility] Qjzxkbyslt0[address] [place], [place] [address]Dr. Wendie Frazier XR FOOT LT MIN 3 VIEWSon XR FOOT LT MIN 3 VIEWS Normal Th e [facility] XR TIB_FIB LT 2Von XR TIB_FIB LT 2V Normal [facility] CBC AUTO DIFFon 07-15-2022 BASO # 0.0 103/ul Normal 0.0-0.1 [facility] Comment on above: Performed By: #### C BC ####[facility] Efjdvyjiiz[address] [place], [place] [address]Dr. Wendie Frazier Basophils/100 WBC (Bld) 0.1 % Critically low 0.2-2.0 [facility] Comment on above: Performed By: #### C BC ####[facility] Nfhkiqwbho[address] [place], [place] [address]Dr. Wendie Frazier EO # 0.0 103/ul Normal 0.0-0.7 [facility] Comment on above: Performed By: #### C BC ####[facility] Clpqldphsv8[address] [place], [place] [address]Dr. Wendie Frazier Eosinophils/100 WBC (Bld) 0.0 % Critically low 0.9-7. 0 [facility] Comment on above: Performed By: #### C BC ####[facility] Vkopabfflq[address] [place], [place] [address]Dr. Wendie Frazier Erythrocyte distribution wid th (RBC) [Ratio] 14.2 % Normal 11.0-15.0 [facility] pital Comment on above: Performed By: #### C BC ####[facility] Nfdygxvlqk[address] [place], [place] [address]Dr. Wendie Frazier Hematocrit (Bld) [Volume fraction] 25.1 % Critically low 36.0-48.0 [facility] pital Comment on above: Performed By: #### C BC ####[facility] Avolcsllrm[address] [place], [place] [address]Dr. Wendie Frazier Hemoglobin (Bld) [Mass/Vol] 8.1 g/dL Critically low 12.0 -16.0 [facility] Comment on above: Performed By: #### C BC ####[facility] [address]cad[address] [place] [address]Dr. Wendie Frazier IG # 0.22 10e3/ul Critically high 0.00-0.03 [facility] Comment on above: Performed By: #### C BC ####[facility] B[address]xqirlv[address] [place] [address]Dr. Wendie Frazier IG % 1.1 % Critically high 0.0-0.5 [facility] Comment on above: Performed By: #### C BC ####[facility] Nfmvutkuta[address] [place] [address]Dr. Wendie Frazier LYMPH # 0.7 103/ul Critically low 1.2-3.8 [facility] Comment on above: Performed By: #### C BC ####[facility] Har[address]xucwm[address] [place] [address]Dr. Wendie Frazier Lymphocytes/100 WBC (Bld) 3.4 % Critically low 20.5-6 0.0 [facility] Comment on above: Performed By: #### C BC ####[facility] [address]suqtpzifx[address] [place] [address]Dr. Wendie Frazier MANUAL DIFF REQ NO Normal [facility] Comment on above: Performed By: #### C BC ####[facility] Pmlesikhpd17[address] [place], [place] [address]Dr. Wendie Frazier MCH (RBC) [Entitic mass] 25.3 pg Critically low 26.7-34 .0 [facility] Comment on above: Performed By: #### C BC ####[facility] Qhokgflzcz18[address] [place], [place] [address]Dr. Wendie Frazier MCHC (RBC) [Mass/Vol] 32.3 g/dL Normal 29.9-35.2 [facility] Comment on above: Performed By: #### C BC ####[facility] Cvokxmouyc[address] [place] [address]Dr. Wendie Frazier MCV (RBC) [Entitic vol] 78.4 fL Critically low 81.0-99. 0 [facility] Comment on above: Performed By: #### C BC ####[facility] Kirrsgkgkb[address] [place] [id number]. Wendie Frazier MONO # 1.4 103/ul Critically high 0.3-0.8 [facility] Comment on above: Performed By: #### C BC ####[facility] Rcbscqovms[address] [place] [address]Dr. Wendie Frazier Monocytes/100 WBC (Bld) 6.5 % Normal 1.7-12.0 [facility] Comment on above: Performed By: #### C BC ####[facility] P[address]twmbzxvj[address] [place], [place] [address]Dr. Wendie Frazier NEUT # 18.6 103/ul Critically high 1.4-6.5 [facility] Comment on above: Performed By: #### C BC ####[facility] Bykfmimloz[address] [place], [place] [address]Dr. Wendie Frazier Neutrophils/100 WBC (Bld) 88.9 % Critically high 43.0- 75.0 [facility] Comment on above: Performed By: #### C BC ####[facility] W[address]fs[address] [place], [place] [address]Dr. Wendie Frazier Platelet mean volume (Bld) [Entitic vol] 9.7 fL Normal 9.5-13.5 [facility] Comment on above: Performed By: #### C BC ####[facility] R[address]orq[address] [place] [address]Dr. Wendie Frazier PLT 368 103/ul Normal 150-450 [facility] Comment on above: Performed By: #### C BC ####[facility] Ezorunfwwa[address] [place], [place] [address]Dr. Wendie Frazier RBC 3.20 106/ul Critically low 4.20-5.40 [facility] Comment on above: Performed By: #### C BC ####[facility] Anaymehhxk[address] [place] [address]Dr. Wendie Frazier WBC 20.9 103/ul Critically high 4.0-11.0 [facility] Comment on above: Performed By: #### C BC ####[facility] Cbutzwjmtm[address] [place] [address]Dr. Wendie Frazier CT HEAD WO CONon 07-15-2022 CT HEAD WO CON Normal [facility]on 06-20 SARS-CoV-2 (COVID-19) RNA LOUISE+probe Ql (Unsp spec) Not detected Normal NOT DETECTED [facility] Comment on above: Result Comment: When diagnostic testing is negative, the possibility of a false negative should be considered inthe context of a patient's recent exposures and the presence of clinical signs and symptomsconsistent with SARS-CoV-2.This test is not yet approved or cleared by the [place] FDA. When there are no FDA-approved or cleared tests available, and other criteria are met, FDA can make tests available under an emergency access mechanism called an Emergency Use Authorization (EUA). The EUA for this test is supported by the [place] of Health and Human Service's declaration that circumstances exist to justify the emergency use of in vitro diagnostics for the detection and/or diagnosis of the virus that causes COVID-19. This EUA will remain in effect for the duration of the COVID-19 declaration justifying emergency of IVDs, unless it is terminated or revoked by the FDA (after which the test may no longer be used). Performed By: #### C VDTBH ####[facility] U[address]lwdtoaz[address] [place] [id number]. Wendie Freddie ER URINE PROFILEon Bilirubin Ql (U) Negative Normal NEGATIVE [facility] Comment on above: Performed By: #### U MICRO, ERUR ####[facility] Fdnrypuhlu7[address] [place] [address]Dr. Zeniaulysses Frazier Clarity (U) SL CLOUDY Abnormal CLEAR [facility] Comment on above: Performed By: #### U MICRO, ERUR ####[facility] Y[address]lijftf[address] [place], [place] [address]DrFacundo Frazier Color (U) LT. YELLOW Normal YELLOW [facility] Comment on above: Performed By: #### U MICRO, ERUR ####[facility] Ppzqmlmcel[address] [place], [place] [address]Dr. Wendie Frazier ERUAHD A micrscopic examina tion will be performed if indicated. Normal The [facility] l Comment on above: Performed By: #### U MICRO, ERUR ####[facility] Yrhjglapat23[address] [place], [place] [address]Dr. Wendie Frazier Glucose Ql (U) Negative Normal NEGATIVE [facility] Comment on above: Performed By: #### U MICRO, ERUR ####[facility] Eakhnrodvc5464[address] [place], [place] [address]Dr. Wendie Frazier Hemoglobin Ql (U) LARGE Abnormal NEGATIVE [facility] Comment on above: Performed By: #### U MICRO, ERUR ####[facility] Rvnlfcfgzn8[address] [place], [place] [address]Dr. Wendie Frazier Ketones Ql (U) Negative Normal NEGATIVE [facility] Comment on above: Performed By: #### U MICRO, ERUR ####[facility] Fsdwuvjxva89[address] [place], [place] [address]Dr. Wendei Frazier LEUKOCYTES MODERATE Abnormal NEGATIVE The [facility] ostal Comment on above: Performed By: #### U MICRO, ERUR ####[facility] Kkolmpkpkq4[address] [place], [place] [address]Dr. Wendie Frazier Nitrite Ql (U) Positive Abnormal NEGATIVE [facility] Comment on above: Performed By: #### U MICRO, ERUR ####[facility] Shyghtvybk74[address] [place], [place] [address]Dr. Wendie Frazier pH (U) 5.0 [pH] Normal 5-9 [facility] Comment on above: Performed By: #### U MICRO, ERUR ####[facility] Kocjbbvymo[address] [place], [place] [address]Dr. Wendie Frazier Protein (U) [Mass/Vol] 100 mg/dL Abnormal NEGATIVE/ TRA CE [facility] Comment on above: Performed By: #### U MICRO, ERUR ####[facility] [address]fkphrlv[address] [place] [address]Dr. Wendie Frazier SPEC GRAVITY 1.025 Normal 1.005-<=1.025 [facility] Comment on above: Performed By: #### U MICRO, ERUR ####[facility] Ycszroiqux[address] [place] [address]Dr. Wendie Frazier UR MICRO IND INDICATED Normal [facility] Comment on above: Performed By: #### U MICRO, ERUR ####[facility] Kuxphqltwu[address] [place] [address]Dr. Wendie Frazier Urobilinogen Qn (U) 0.2 {Ricky'U}/dL Normal 0.2 - 1. 0 [facility] Comment on above: Performed By: #### U MICRO, ERUR ####[facility] Cwagkhifnj[address] [place], [place] [address]Dr. Wendie Frazier LIVER PROFILEon 07-15-2022 Albumin [Mass/Vol] 2.0 g/dL Critically low 3.4-5.0 [facility] Comment on above: Performed By: #### L IVER ####[facility] Vryrnjvszt[address] [place], [place] [address]Dr. Wendie Frazier Albumin/Globulin [Mass ratio] 0.4 {ratio} Normal [facility] Comment on above: Performed By: #### L IVER ####[facility] Esqhifcxbp7524[address] [place], [place] [address]Dr. Wendie Frazier ALP [Catalytic activity/Vol] 129 U/L Critically high 46 -116 [facility] Comment on above: Performed By: #### L IVER ####[facility] Kdhfzynslh62[address] [place], [place] [address]Dr. Wendie Frazier ALT [Catalytic activity/Vol] 35 U/L Normal 14-59 [facility] Comment on above: Performed By: #### L IVER ####[facility] Rcmprtvdwl88[address] [place], [place] [address]Dr. Wendie Frazier AST [Catalytic activity/Vol] 55 U/L Critically high 15 -37 [facility] Comment on above: Performed By: #### L IVER ####[facility] Qwukxlhhdx36[address] [place] [address]Dr. Wendie Frazier BILI, CONJUGATED 0.3 mg/dL Critically high 0.0-0.2 [facility] Comment on above: Performed By: #### L IVER ####[facility] Umqtlnmahq15[address] [place] [address]Dr. Wendie Frazier Bilirubin [Mass/Vol] 0.8 mg/dL Normal 0.2-1.0 [facility] Comment on above: Performed By: #### L IVER ####[facility] Wkfywwgfqr3[address] [place], [place] [address]Dr. Wendie Frazier Globulin (S) [Mass/Vol] 4.6 g/dL Normal [facility] Comment on above: Performed By: #### L IVER ####[facility] Pjpnniynub[address] [place], [place] [address]Dr. Wendie Frazier Protein [Mass/Vol] 6.6 g/dL Normal 6.4-8.2 [facility] Comment on above: Performed By: #### L IVER ####[facility] Sxzhmzakie98[address] [place], [place] [address]Dr. Wendie Frazier POINT OF CARE GLUCOSEon 06-20 Glucose [Mass/Vol] 123 mg/dL Critically high 74-106 [facility] Comment on above: Performed By: #### P OCGLUC ####[facility] Eycpqlalnr7464[address] [place], [place] [address]Dr. Wendie Frazier Glucose [Mass/Vol] 102 mg/dL Normal 74-106 [facility] Comment on above: Performed By: #### P OCGLUC ####[facility] Utaelbaxud04[address] [place], [place] [address]Dr. Wendie Frazier Glucose [Mass/Vol] 183 mg/dL Critically high 74-106 [facility] Comment on above: Performed By: #### P OCGLUC ####[facility] Vpqnqpsybb6705[address] [place], [place] [address]Dr. Yilan Frazier PROF CHEM 8 (BAS METB)on Anion gap [Moles/Vol] 12.9 mmol/L Normal Th [facility] Comment on above: Performed By: #### H JASIEL, BMP ####[facility] [address]qijsywugv[address] [place] [address]Dr. Wendie Frazier Calcium [Mass/Vol] 8.7 mg/dL Normal 8.5-10.1 [facility] Comment on above: Performed By: #### H JASIEL, BMP ####[facility] Jzqusfxuza0[address] [place], [place] [address]Dr. Wendie Frazier Chloride [Moles/Vol] 97 mmol/L Critically low 98-107 [facility] Comment on above: Performed By: #### H JASIEL, BMP ####[facility] Celqchpmud1042[address] [place], [place] [address]Dr. Wendie Frazier CO2 [Moles/Vol] 26.4 mmol/L Normal 21.0-32.0 [facility] Comment on above: Performed By: #### H JASIEL, BMP ####[facility] Ciskoeanvd[address] [place], [place] [address]Dr. Wendie Frazier Creatinine [Mass/Vol] 1.62 mg/dL Critically high 0.55-1.02 [facility] Comment on above: Performed By: #### H JASIEL, BMP ####[facility] Vwoccfeqjv[address] [place], [place] [address]Dr. Zeniaulysses Frazier EGFR-AF BAH[place]IAN 39 mL/min/1.73m2 Critically low >=60 [facility] Comment on above: Performed By: #### H STROHARRIETT, BMP ####[facility] Fchhuvogld[address] [place], [place] [address]Dr. Zeniaulysses Frazier EGFR-NON AF [place]IAN 33 mL/min/1.73m2 Critically low >=60 [facility] Comment on above: Performed By: #### H STROHARRIETT, BMP ####[facility] Fzkhkvvcox3[address] [place], [place] [address]Dr. Zeniaulysses Frazier Glucose [Mass/Vol] 170 mg/dL Critically high 74-106 [facility] Comment on above: Performed By: #### H STROPN, BMP ####[facility] E[address]tqhmuct[address] [place] [address]Dr. Wendie Frazier Potassium [Moles/Vol] 4.3 mmol/L Normal 3.5-5.1 [facility] Comment on above: Performed By: #### H STROPN, BMP ####[facility] Lpnydwpvxm[address] [place] [address]Dr. Wendie Frazier Sodium [Moles/Vol] 132 mmol/L Critically low 136-[address] [facility] Comment on above: Performed By: #### H STROPN, BMP ####[facility] Ciqfqsacjx15[address] [place] [address]Dr. Wendie Frazier Urea nitrogen [Mass/Vol] 37.0 mg/dL Critically high 7.0-18 .0 [facility] Comment on above: Performed By: #### H STROPN, BMP ####[facility] [address]xckzktpuh[address] [place] [address]Dr. Wendie Frazier Urea nitrogen/Creatinine [Mass ratio] 22.8 mg/mg Normal [facility] Comment on above: Performed By: #### H STROPN, BMP ####[facility] [address]hcwg[address] [place] [address]Dr. Wendie Frazier TROPONIN, HIGH SENSITIVITYon 07-15-2022 HSTROP 13.8 pg/mL Normal 4.0-51.3 [facility] ospital Comment on above: Result Comment: CUT- OFF POINTS HAVE BEEN ESTABLISHED BASED ON THE FOURTH UNIVERSAL DEFINITIONS OF MYOCARDIALINFARCTION. THE UPPER REFERENCE LIMIT (URL) OF TROPONIN, DEFINED THE 99TH PERCENTILE OFcTnI DISTRIBUTION IN A REFERENCE POPULATION, HAS BEEN CONFIRMED THE DECISION THRESHOLDFOR MO DIAGNOSIS. Performed By: #### H STROPN, BMP ####[facility] [address]hry[address] [place] [id number]. Wendie Frazier URINE MICROSCOPIC ONLYon AMORPHOUS CRYSTALS RARE Normal [facility] Comment on above: Performed By: #### U MICRO, ERUR ####[facility] [address]zec[address] [place] [address]Dr. Yiulysses Frazier BACTERIA LARGE Abnormal NONE SEEN [facility] Comment on above: Performed By: #### U MICRO, ERUR ####[facility] [id number] [place] [address]Dr. Wendie Frazier Bacteria identified Cx Nom (U) INDICATED Normal [facility] Comment on above: Performed By: #### U MICRO, ERUR ####[facility] [address] [place] [address]Dr. Wendie Frazier CAST NONE SEEN Normal NONE SEEN [facility] Comment on above: Performed By: #### U MICRO, ERUR ####[facility] [address] [place] [address]Dr. Wendie Frazier Crystals LM Nom (Urine sed) SEEN Abnormal NONE SEE N [facility] Comment on above: Performed By: #### U MICRO, ERUR ####[facility] [address] [place] [address]Dr. Wendie Frazier Epithelial cells LM Ql (Urine sed) FEW Abnormal N ONE SEEN /RARE [facility] Comment on above: Performed By: #### U MICRO, ERUR ####[facility] [address] [place] [address]Dr. Wendie Frazier MUCOUS NONE SEEN Normal NONE SEEN [facility] Comment on above: Performed By: #### U MICRO, ERUR ####[facility] [address] [place] [address]Dr. Wendie Frazier RBC 10-20 Abnormal 0-2 [facility] Comment on above: Performed By: #### U MICRO, ERUR ####[facility] [address] [place] [address]Dr. Wendie Frazier WBC (U) [#/Vol] /uL Abnormal NONE SEEN The [facility] Comment on above: Performed By: #### U MICRO, ERUR ####[facility] [address] [place] [address]Dr. Wendie Frazier US SINGLE QUAD RT UPPERon US SINGLE QUAD RT UPPER Normal T [facility] XR FOOT LT MIN 3 VIEWSon XR FOOT LT MIN 3 VIEWS Normal Th e [facility] Covid-19 PCR (CVDTB)on 06-19 SARS-CoV-2 (COVID-19) RNA LOUISE+probe Ql (Unsp spec) Not detected Normal NOT DETECTED [facility] Comment on above: Result Comment: This test is not yet approved or cleared by the [place] FDA. When there are no FDA-approved or cleared tests available, and other criteria are met, FDA can make tests available under an emergency access mechanism called an Emergency Use Authorization (EUA). The EUA for this test is supported by the [place] of Health and Human Service's (HHS's) declaration that circumstances exist to justify the emergency use of in vitro diagnostics for the detection and/or diagnosis of the virus that causes COVID-19. This EUA will remain in effect (meaning this test can be used) for the duration of the COVID-19 declaration justifying emergency of IVDs, unless it is terminated or revoked by FDA (after which the test may no longer be used).When diagnostic testing is negative, the possibility of a false negative should be considered inthe context of a patient's recent exposures and the presence of clinical signs and symptomsconsistent with SARS-CoV-2. Performed By: #### C VDTBH ####[facility] [address] [place], [place] [address]Dr. Wendie Frazier INFLUENZA A [facility] Normal [facility] Comment on above: Result Comment: Nega tive for Flu A protein angiten. Infection due to Flu A cannot be ruled out. Flu A angiten in the sample may be below the detection limit of the test. Performed By: #### I NFLUAB ####[facility] [address] [place], [place] [address]Dr. Wendie Frazier INFLUBNEG SEE BELOW Normal [facility] Comment on above: Result Comment: Nega tive for Flu B protein antigen. Infection due to Flu B cannot be ruled out. Flu B antigen in the sample may be below the detection limit of the test. Performed By: #### I NFLUAB ####[facility] [address] [place], [place] [address]Dr. Wendie Frazier INFLUENZA A AG Negative Normal NEGATIVE SEE COMMENT [facility] Comment on above: Performed By: #### I NFLUAB ####[facility] [address] [place], [place] [address]Ux. Wendie Frazier INFLUENZA B AG Negative Normal NEGATIVE SEE COMMENT [facility] Comment on above: Performed By: #### I NFLUAB ####[facility] [address] [place], [place] [address]Un. Wendie Frazier INTERNAL CONTROLS Within Normal Limits Normal Wi thin Normal Limits [facility] Comment on above: Performed By: #### I NFLUAB ####[facility] [address] [place], [place] [address]Vk. Wendie Frazier Encounters Encounter Date Encounter Type Care Provider Facility Start: 12-04-2022 End: 12-05-2022 ambulatory MERCEDES RETANA Facility:[facility]1 Start: 11-13-2022 End: 11-14-2022 ambulatory FUNMI SHABAZZ Facility:[facility] Start: 10-21-2022 End: 10-22-2022 ambulatory MERCEDES RETANA Facility:[facility] Start: 09-30-2022 End: 10-01-2022 ambulatory MERCEDES RETANA Facility:[facility] Start: 09-15-2022 End: 09-16-2022 ambulatory MERCEDES RETANA Facility:[facility] Start: 09-01-2022 End: 09-02-2022 ambulatory MERCEDES RETANA Facility:[facility] Start: 08-28-2022 End: 08-28-[address] DARRYL WOLFE . Facility:[facility] Start: 08-22-2022 End: 08-23-[address] CARA VALENCIA . Facility:[facility] Start: 08-19-2022 End: 08-19-[address] DARRYL WOLFE . Facility:[facility] Start: 08-15-2022 End: 08-16-2022 ambulatory MERCEDES RETANA Facility:[facility] Start: 08-11-2022 End: 08-11-[address] DARRYL WOLFE . Facility:[facility] Start: 08-06-2022 End: 08-06-[address] DARRYL WOLFE . Facility:[facility] Start: 08-04-2022 End: 01-16-[address] DARRYL WOLFE . Facility: Start: 08-01-2022 End: 08-02-2022 ambulatory MERCEDES RETANA Facility:[facility] Start: 07-28-2022 End: 07-28-[address] DARRYL WOLFE . Facility:[facility] Start: 07-17-2022 End: 07-24-2022 Evaluation and management of inpatient DR DARRYL WOLFE . Facility: Start: 07-08-2022 End: 07-09-[address] DARRYL WOLFE . Facility:[facility] Start: 06-30-2022 End: 06-30-[address] DARRYL WOLFE . Facility: Procedures Date Procedure Procedure Detail Performing Clinician Start: 07-23-2022 Insertion of Infusio n Device into Superior Vena Cava, Percutaneous Approach DR DARRYL WOLFE . Start: 07-17-2022 Excision of Left Sher t Subcutaneous Tissue and Fascia, Open Approach DR DARRYL WOLFE . Start: 07-16-2022 Transfusion of Nonau tologous Red Blood Cells into Peripheral Vein, Percutaneous Approach DR DARRYL WOLFE . Payers Date Payer Category Payer Unknown [id number] 1965 Unknown [id number] 2.16.84 [id number] 1965 Unknown [id number] 2.16.84 0.1.448109.3.579.2.593 1965 Unknown [id number] 2.16.84 0.1.036108.3.579.2.593 1965 Unknown [id number] 2.16.84 0.1.245550.3.579.2.593 1965 Unknown [id number] 2.16.84 0.1.543576.3.579.2.593 1965 Unknown [id number] 2.16.84 0.1.908245.3.579.2.593 1965 Unknown [id number] 2.16.84 0.1.321129.3.579.2.593 1965 Unknown [id number] 2.16.84 0.1.088523.3.579.2.593 1965 Unknown [id number] 2.16.84 0.1.802124.3.579.2.593 1965 Unknown [id number] 2.16.84 0.1.341899.3.579.2.593 1965 Unknown [id number] 2.16.84 0.1.237654.3.579.2.593 1965 Unknown [id number] 2.16.84 0.1.314175.3.579.2.593 1965 Unknown [id number] 2.16.84 0.1.235098.3.579.2.593 1965 Unknown [id number] 2.16.84 0.1.603600.3.579.2.593 1965 Unknown [id number] 2.16.84 0.1.844429.3.579.2.593 1965 Unknown [id number] 2.16.84 0.1.854701.3.579.2.593 1965 Unknown [id number] 2.16.84 0.1.571933.3.579.2.593 1965 Unknown [id number] 2.16.84 0.1.601786.3.579.2.593 1965 Unknown [id number] 2.16.84 0.1.222944.3.579.2.593 Summary Purpose Family History No Family History Records Found Advance Directives No Advanced Directives Records Found Additional Source Comments INFORMATION SOURCE (unrecogn ized section and content) DATE CREATED AUTHOR 12/26/2022 [facility] FOR RECORDS PERTAINING TO PATIENTS WHO ARE OR HAVE BEEN ENROLLED IN A CHEMICAL DEPENDENCY/SUBSTANCEABUSE PROGRAM, SOME INFORMATION MAY BE OMITTED. This clinical summary was aggregated from multiple sources. Caution should be exercised in using it in the provision of clinical care. This summary normalizes information from multiple sources, and as a consequence, information in this document may materially change the coding, format and clinical context of patient data. In addition, data may be omitted in some cases. CLINICAL DECISIONS SHOULD BE BASED ON THE PRIMARY CLINICAL RECORDS. [facility] [employer] [facility]. provides no warranty or guarantee of the accuracy or completeness of information in this document.
== END 2023-06-09 14:02 | disposition home or self-care (01) ==
LOC: WC 14:01
PROVIDERS: PCP Family Medicine; Visit Provider Podiatrist Foot & Ankle Surgery
DX: E11.621 Type 2 diabetes mellitus with foot ulcer (principal); L97.421 Non-pressure chronic ulcer of left heel and midfoot limited to breakdown of skin; L97.922 Non-pressure chronic ulcer of unspecified part of left lower leg with fat layer exposed; L97.321 Non-pressure chronic ulcer of left ankle limited to breakdown of skin
CPT/HCPCS: 11042; 29445; A6213

== ENCOUNTER 2023-06-16 10:55 | Outpatient (OUT) | payer OTHER, SELFPAY | END 2023-06-16 10:56 | disposition home or self-care (01) | LOC: WC 10:55 | PROVIDERS: PCP Family Medicine; Visit Provider Podiatrist Foot & Ankle Surgery | DX: L97.421 Non-pressure chronic ulcer of left heel and midfoot limited to breakdown of skin (principal); L97.922 Non-pressure chronic ulcer of unspecified part of left lower leg with fat layer exposed | CPT/HCPCS: 11042; 29445; A6213 ==

== ENCOUNTER 2023-06-24 12:51 | Outpatient (OUT) | payer OTHER, SELFPAY ==
--- NOTE | 2023-06-24 | CT_ITS ---
[address] [address] Patient Name: VASU ABURTO MRN: [id number] date: 1965 Sex: F Assigned Patient Location: CT Current Patient Location: Accession/Order Number: [id number] Exam Date: 06/24/2023 13:02 Report Date: 06/25/2023 07:18 At the request of: MERCEDES RETANA Procedure: CT ankle LT wo con EXAMINATION: CT ankle LT wo con HISTORY: [place] COMPARISON: No relevant comparison available. TECHNIQUE: Multi-planar CT images were created without IV contrast. Dose reduction techniques were achieved by using automated exposure control and/or adjustment of mA and/or kV according to patient size and/or use of iterative reconstruction technique. FINDINGS: BONES: No acute fracture or dislocation. Remote healed angulated fracture of the distal fibular diaphysis. Severe degenerative changes of the hindfoot with bony remodeling of the tibial plateau and talus. Extensive subchondral cystic changes of the distal tibia, talus and calcaneus. Moderate degenerative changes of the midfoot with cortical thinning and likely underlying osteopenia SOFT TISSUES: Extensive soft tissue swelling. Vascular calcifications. EFFUSION: None visible. OTHER: Negative. 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
== END 2023-06-24 12:52 | disposition home or self-care (01) ==
LOC: CT 12:51
PROVIDERS: PCP Family Medicine; Visit Provider Podiatrist Foot & Ankle Surgery
DX: A52.16 Charcot's arthropathy (tabetic) (principal); M25.472 Effusion, left ankle; M19.072 Primary osteoarthritis, left ankle and foot
CPT/HCPCS: 73700

== ENCOUNTER 2023-06-30 10:49 | Outpatient (OUT) | payer OTHER, SELFPAY | END 2023-06-30 10:50 | disposition home or self-care (01) | LOC: WC 10:49 | PROVIDERS: PCP Family Medicine; Visit Provider Podiatrist Foot & Ankle Surgery | DX: L97.421 Non-pressure chronic ulcer of left heel and midfoot limited to breakdown of skin (principal); L97.922 Non-pressure chronic ulcer of unspecified part of left lower leg with fat layer exposed | CPT/HCPCS: 11042; 29445; A6213 ==

== ENCOUNTER 2023-07-07 11:35 | Outpatient (OUT) | payer OTHER, SELFPAY | END 2023-07-07 11:36 | disposition home or self-care (01) | LOC: WC 11:35 | PROVIDERS: PCP Family Medicine; Visit Provider Podiatrist Foot & Ankle Surgery | DX: L97.421 Non-pressure chronic ulcer of left heel and midfoot limited to breakdown of skin (principal); L97.922 Non-pressure chronic ulcer of unspecified part of left lower leg with fat layer exposed | CPT/HCPCS: 29445; A6213 ==

== ENCOUNTER 2023-07-14 13:10 | Outpatient (OUT) | payer OTHER, SELFPAY | END 2023-07-14 13:11 | disposition home or self-care (01) | PROVIDERS: PCP Family Medicine; Visit Provider Podiatrist Foot & Ankle Surgery | DX: L97.421 Non-pressure chronic ulcer of left heel and midfoot limited to breakdown of skin (principal); L97.922 Non-pressure chronic ulcer of unspecified part of left lower leg with fat layer exposed | CPT/HCPCS: 11042; 29445; A6021; A6213 ==

== ENCOUNTER 2023-07-21 14:30 | Outpatient (OUT) | payer OTHER, SELFPAY | END 2023-07-21 14:31 | disposition home or self-care (01) | PROVIDERS: PCP Family Medicine; Visit Provider Podiatrist Foot & Ankle Surgery | DX: L97.421 Non-pressure chronic ulcer of left heel and midfoot limited to breakdown of skin (principal); L97.922 Non-pressure chronic ulcer of unspecified part of left lower leg with fat layer exposed | CPT/HCPCS: 29445; A6213 ==

== ENCOUNTER 2023-07-28 13:02 | Outpatient (OUT) | payer OTHER, SELFPAY | END 2023-07-28 13:03 | disposition home or self-care (01) | LOC: WC 13:02 | PROVIDERS: PCP Family Medicine; Visit Provider Podiatrist Foot & Ankle Surgery | DX: L97.421 Non-pressure chronic ulcer of left heel and midfoot limited to breakdown of skin (principal) | CPT/HCPCS: G0463 ==

== ENCOUNTER 2024-10-24 13:29 | Outpatient (OUT) | payer OTHER, SELFPAY ==
[2024-10-24 14:16] LABS: Alanine Aminotransferase 24 U/L (14-59); Albumin Globulin Ratio 0.5; Albumin Level 2.4 g/dL (3.4-5.0); Alkaline Phosphatase 82 U/L (46-116); Anion Gap 13.4; Aspartate Amino Transferase 15 U/L (15-37); BUN Creatinine Ratio 19.6; Bilirubin Total 0.3 mg/dL (0.2-1.0); Carbon Dioxide 21.7 mmol/L (21.0-32.0); Chloride 106 mmol/L (98-107); Estimated GFR (African America 27 (>=60 mL/min/1.73m^2); Estimated GFR (Non-African Ame 22 (>=60 mL/min/1.73m^2); Globulin 4.5 g/dL; Glucose 130 mg/dL (74-106); Magnesium 1.5 mg/dL (1.8-2.4); Phosphorus 4.4 mg/dL (2.6-4.7); Potassium 5.1 mmol/L (3.5-5.1); Sodium 136 mmol/L (136-145); Total Protein 6.9 g/dL (6.4-8.2)
== END 2024-10-24 13:30 | disposition home or self-care (01) ==
LOC: LAB 13:33
PROVIDERS: PCP Family Medicine; Visit Provider Family Medicine
DX: L40.50 Arthropathic psoriasis, unspecified (principal); I89.0 Lymphedema, not elsewhere classified; E03.9 Hypothyroidism, unspecified; M47.816 Spondylosis without myelopathy or radiculopathy, lumbar region
CPT/HCPCS: 36415; 80053; 83735; 84100

== ENCOUNTER 2024-12-21 12:32 | Outpatient (RCR) | payer OTHER, SELFPAY ==
[2024-12-21 15:51] LABS: Hematocrit 18.3 % (36.0-48.0); Hemoglobin 5.4 g/dL (12.0-16.0)
== END 2025-01-17 09:45 | disposition home or self-care (01) ==
LOC: LAB 12:32
PROVIDERS: PCP Family Medicine; Visit Provider Family Medicine
DX: Z51.81 Encounter for therapeutic drug level monitoring (principal); D64.9 Anemia, unspecified
CPT/HCPCS: 36415; 85014; 85018; 86850; 86900; 86901

== ENCOUNTER 2024-12-21 17:20 | Observation (INO) | payer OTHER, SELFPAY ==
[2024-12-21] VITALS (21 sets, daily range): BP systolic 151–209; BP diastolic 75–96; PULSE 89–103; TEMP 36.7–37.6; O2SAT 92–100; BMI 41.6; BMI 42.3
--- NOTE | 2024-12-21 17:31 | ECG_ITS ---
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 Measurements Intervals [place] Rate: 97 P: 24 GA: 142 QRS: -57 QRSD: 86 T: 56 QT: 344 QTc: 399 Interpretive Statements 1100 Sinus rhythm 2630 Left anterior fascicular block 3234 Anteroseptal myocardial infarction, age undetermined 9150 abnormal ECG Compared to ECG 08/22/2022 17:06:37 No significant changes Electronically Signed On 12-21-2024 19:25:21 EDT by YOUNG CRANDALL M.D.
--- NOTE | 2024-12-21 17:38 | ED_ITS ---
HPI HPI - General Adult General Chief complaint: Weakness Stated complaint: DR WOLFE SENT OVER FOR BLOOD TRANSFUSION Time Seen by Provider: 12/21/24 17:25 Source: patient Mode of arrival: Wheelchair History of Present Illness HPI narrative: 59-year-old female presents for anemia. Earlier today she had a hemoglobin of 5.4 and was directed here for admission. She has been feeling. No syncope or abdominal pain or vomiting. She has had extensive workup for anemia including upper and lower GIs which did not reveal a cause. She was scheduled to have a blood transfusion in 3 days but her hemoglobin came back lower today. No chest pain or fever. Related Data Home Medications ?Medication ?Instructions ?Recorded ?Confirmed carvedilol 12.5 mg tablet 12.5 mg PO Q12H 07/22/23 Allergies Allergy/AdvReac Type Severity Reaction Status Date / Time amoxicillin Allergy Intermediate Hives Verified 12/21/24 17:33 cefepime Allergy Anaphylaxis Verified 12/21/24 17:33 meperidine (From Demerol) Allergy Palpitation Verified 12/21/24 17:33 s morphine Allergy Numbness Verified 12/21/24 17:33 Penicillins Allergy Rash Verified 12/21/24 17:33 Sulfa (Sulfonamide Allergy Rash Verified 12/21/24 17:33 Antibiotics) ceftriaxone (From Rocephin) AdvReac Confusion Verified 12/21/24 17:33 Review of Systems ROS Narrative A ten point review of systems is negative except as noted above. [facility] Surgical History (Updated 07/22/23 @ 07:39 by Miriam Jon) Hx of appendectomy ?Z90.49 - Acquired absence of other specified parts of digestive tract (ICD- 10) H/O: hysterectomy ?Z90.710 - Acquired absence of both cervix and uterus (ICD-10) History of carpal tunnel release ?Z98.890 - Other specified postprocedural states (ICD-10) Previous back surgery ?Z98.890 - Other specified postprocedural states (ICD-10) History of cholecystectomy ?Z90.49 - Acquired absence of other specified parts of digestive tract (ICD- 10) Social History Little interest or pleasure in doing things: not at all Feeling down, depressed, or hopeless: not at all Exam Narrative Exam Narrative: Nurses note and vital signs reviewed and patient is not hypoxic. General: The patient appears well and in no apparent distress. Patient is resting comfortably on cart. Skin: Warm, dry, pallor noted. There is no rash noted. Head: Normocephalic, atraumatic Eye: Conjunctiva are pale, no drainage Ears, Nose, Mouth, and Throat: oral mucosa is moist. Nares patent. Cardiovascular: Regular Rate and Rhythm Respiratory: Patient is in no distress, no accessory muscle use, lungs are clear to auscultation, no wheezing, rales or rhonchi Back: non-tender GI: Soft and nontender Musculoskeletal: The patient has no evidence of calf tenderness, no pitting edema, symmetrical pulses noted bilaterally Neurological: A&O, normal speech Psychiatric: Cooperative Constitutional Vital Signs, click to edit/add: Last Vital Signs Temp 98.2 F 12/21/24 17:29 Pulse 97 H 12/21/24 17:29 Resp 18 12/21/24 17:29 BP 170/96 H 12/21/24 17:29 Pulse Ox 98 12/21/24 17:29 O2 Del Method Room Air 12/21/24 17:29 Course Vital Signs Vital signs: Vital Signs Temperature 98.2 F 12/21/24 17:29 Pulse Rate 97 H 12/21/24 17:29 Respiratory Rate 18 12/21/24 17:29 Blood Pressure 170/96 H 12/21/24 17:29 Pulse Oximetry 98 12/21/24 17:29 Oxygen Delivery Method Room Air 12/21/24 17:29 Temperature 98.2 F 12/21/24 17:29 Pulse Rate 97 H 12/21/24 17:29 Respiratory Rate 18 12/21/24 17:29 Blood Pressure 170/96 H 12/21/24 17:29 Pulse Oximetry 98 12/21/24 17:29 Oxygen Delivery Method Room Air 12/21/24 17:29 Medical Decision Making MDM Narrative Medical decision making narrative: 2 units of packed red blood cells are ordered and she is being admitted. Treatment diagnosis and disposition were discussed with the patient. Differential Diagnosis Differential Diagnosis: Anemia Medical Records Medical records reviewed: Yes I reviewed the patient's medical records Lab Data Lab results reviewed: Yes I reviewed the patient's lab results Discharge Plan Discharge Chief Complaint: Weakness Clinical Impression: Anemia Patient Disposition: Admitted as Observation Time of Disposition Decision: 17:37 Condition: Fair
[2024-12-21 18:17] LABS: Basophils Absolute Auto 0.1 10^3/uL (0.0-0.1); Basophils Percent Auto 0.7 % (0.2-2.0); Eosinophils Absolute Auto 0.4 10^3/uL (0.0-0.7); Eosinophils Percent Auto 3.7 % (0.9-7.0); Immature Granulocytes Abs Auto 0.05 10^3/uL (0.00-0.03); Immature Granulocytes Pct Auto 0.5 % (0.0-0.5); Lymphocytes Absolute Auto 1.4 10^3/uL (1.2-3.8); Lymphocytes Percent Auto 14.4 % (20.5-60.0); Mean Corpuscular HGB Conc 29.9 g/dL (29.9-35.2); Mean Corpuscular Hemoglobin 23.4 pg (26.7-34.0); Mean Corpuscular Volume 78.2 fL (81.0-99.0); Monocytes Percent Auto 11.1 % (1.7-12.0); Neutrophils Absolute Auto 6.5 10^3/uL (1.4-6.5); Neutrophils Percent Auto 69.6 % (43.0-75.0); Platelet Count 462 10^3/uL (150-450); Red Blood Count 2.48 10^6/uL (4.20-5.40); Red Cell Distribution Width 17.1 % (11.0-15.0); White Blood Count 9.4 10^3/uL (4.0-11.0)
[2024-12-21 18:19] LABS: Hematocrit 19.4 % (36.0-48.0); Hemoglobin 5.8 g/dL (12.0-16.0)
[2024-12-21 18:24] LABS: Anion Gap 14.5; BUN Creatinine Ratio 13.6; Calcium 9.1 mg/dL (8.5-10.1); Carbon Dioxide 25.4 mmol/L (21.0-32.0); Chloride 104 mmol/L (98-107); Estimated GFR (African America 31 (>=60 mL/min/1.73m^2); Estimated GFR (Non-African Ame 25 (>=60 mL/min/1.73m^2); Glucose 118 mg/dL (74-106); Potassium 4.9 mmol/L (3.5-5.1); Sodium 139 mmol/L (136-145)
[2024-12-21 19:05] LABS: INR 1.03; Prothrombin Time 10.9 sec (9.0-11.6)
--- NOTE | 2024-12-21 19:30 | P.HP_ITS ---
HPI H&P: HPI History of Present Illness Chief complaint: DR WOLFE SENT OVER FOR BLOOD TRANSFUSION Narrative: Patient had blood work done as an outpatient took about a week to get done but hemoglobin came back at 5.4 all Systems are negative except as noted/marked.All systems reviewed and otherwise negative she was planned to get scheduled transfusion on Thursday, but with a hemoglobin at that low and that being 2 days away recommended ER visit and hemoglobin was confirmed to be at 5.8, patient will be admitted for transfusion. She has had extensive workup in [place] for acute blood loss and unable to find any source being scoped from above and below When I saw patient in the emergency room, resting comfortably bed no real complaint, does maybe feel little bit tired she definitely is pale appearing, but denies chest pain or shortness of breath Review of Systems ROS Status of ROS 10 or more systems reviewed and unremark able except as noted in history and below [facility] Surgical History (Updated 07/22/23 @ 07:39 by Miriam Jon) Hx of appendectomy ?Z90.49 - Acquired absence of other specified parts of digestive tract (ICD- 10) H/O: hysterectomy ?Z90.710 - Acquired absence of both cervix and uterus (ICD-10) History of carpal tunnel release ?Z98.890 - Other specified postprocedural states (ICD-10) Previous back surgery ?Z98.890 - Other specified postprocedural states (ICD-10) History of cholecystectomy ?Z90.49 - Acquired absence of other specified parts of digestive tract (ICD- 10) Social History Little interest or pleasure in doing things: not at all Feeling down, depressed, or hopeless: not at all Meds Home Medications and Allergies Home Medications ?Medication ?Instructions ?Recorded ?Confirmed ?Type carvedilol 12.5 mg tablet 12.5 mg PO Q12H 07/22/23 Hi story Allergies Allergy/AdvReac Type Severity Reaction Status Date / Time amoxicillin Allergy Intermediate Hives Verified 12/21/24 17:33 cefepime Allergy Anaphylaxis Verified 12/21/24 17:33 meperidine (From Demerol) Allergy Palpitation Verified 12/21/24 17:33 s morphine Allergy Numbness Verified 12/21/24 17:33 Penicillins Allergy Rash Verified 12/21/24 17:33 Sulfa (Sulfonamide Allergy Rash Verified 12/21/24 17:33 Antibiotics) ceftriaxone (From Rocephin) AdvReac Confusion Verified 12/21/24 17:33 Exam Constitutional Vital Signs, click to edit/add: Last Vital Signs Temp 98.2 F 12/21/24 17:29 Pulse 98 H 12/21/24 18:50 Resp 17 12/21/24 18:50 BP 174/84 H 12/21/24 17:45 Pulse Ox 95 12/21/24 18:50 O2 Del Method Room Air 12/21/24 17:56 Documenting provider has reviewed patient's vital signs: yes Common normals: no apparent distress Chest Common normals: inspection of chest normal and palpation of chest normal Respiratory Common normals: normal respiratory effort and no retractions Cardio Common normals: regular rate, regular rhythm, S1 normal heart sound and no murmurs GI Common normals: Normal to inspection, nondistended, normoactive bowel sounds present, soft to palpation, non-tender and no masses Extremity Common normals: abnormal to inspection (3+ edema-lymphedema) Results Labs Labs: Short CBC 12/21/24 Range/Units 17:50 WBC 9.4 (4.0-11.0) 10^3/uL Hgb 5.8 L* (12.0-16.0) g/dL Hct 19.4 L* (36.0-48.0) % Plt Count 462 H (150-450) 10^3/uL BMP 12/21/24 17:50 Sodium 139 Potassium 4.9 Chloride 104 Carbon Dioxide 25.4 BUN 27.0 H Creatinine 1.99 H Glucose 118 H Calcium 9.1 Assessment and Plan Assessment and Plan (1) Anemia: (2) Lymphedema: (3) Hypertension: (4) Diabetes: (5) Cellulitis: (6) Chronic kidney disease, stage III (moderate): (7) Acute blood loss anemia: Plan Admission findings: Uncontrolled high blood pressure, severe anemia with hemoglobin less than 6, thrombocythemia mild, creatinine somewhat of elevated above but not far from baseline with a category of chronic kidney disease stage III Possible acute blood loss anemia-she has had scopes before without finding any source check stool for occult blood, check PT PTT, type cross and transfuse 2 units if her hemoglobin comes up 2 points than likely discharge to home would not be surprising to need the third unit to get her above 8 Hypertension-continue with home medications Diabetes mellitus-insulin sliding scale Lymphedema-stable Admission status: Patient was placed in observation, medically necessary treatment likely to only span 1 midnight, observation status
[2024-12-21] MEDS: 0.9 % SODIUM CHLORIDE 250 ML 10 ML IV (19:39)
[2024-12-21] MEDS: 0.9 % SODIUM CHLORIDE 1,000 ML 75 ML IV (22:24)
[2024-12-22] VITALS (14 sets, daily range): BP systolic 142–183; BP diastolic 67–85; PULSE 81–93; TEMP 36.8–37.2; O2SAT 91–96
[2024-12-22 02:11] LABS: Mean Corpuscular HGB Conc 31.5 g/dL (29.9-35.2); Mean Corpuscular Hemoglobin 24.9 pg (26.7-34.0); Mean Platelet Volume 8.7 fL (9.5-13.5); Platelet Count 381 10^3/uL (150-450); Red Blood Count 2.57 10^6/uL (4.20-5.40); Red Cell Distribution Width 16.4 % (11.0-15.0)
[2024-12-22 02:19] LABS: Hematocrit 20.3 % (36.0-48.0); Hemoglobin 6.4 g/dL (12.0-16.0)
[2024-12-22] MEDS: 0.9 % SODIUM CHLORIDE 250 ML 10 ML IV ×2 (03:11→09:54)
--- NOTE | 2024-12-22 05:48 | P.PN_ITS ---
Exam Constitutional Vital Signs, click to edit/add: Last Vital Signs Temp 98.3 F 12/22/24 05:46 Pulse 84 12/22/24 05:46 Resp 20 12/22/24 05:46 BP 169/85 H 12/22/24 05:46 Pulse Ox 96 12/22/24 05:46 O2 Del Method Room Air 12/22/24 05:46 Progress Note: Objective Labs Labs: Short CBC 12/21/24 12/22/24 Range/Units 17:50 02:02 WBC 9.4 8.0 (4.0-11.0) 10^3/uL Hgb 5.8 L* 6.4 L* (12.0-16.0) g/dL Hct 19.4 L* 20.3 L* (36.0-48.0) % Plt Count 462 H 381 (150-450) 10^3/uL BMP 12/21/24 17:50 Sodium 139 Potassium 4.9 Chloride 104 Carbon Dioxide 25.4 BUN 27.0 H Creatinine 1.99 H Glucose 118 H Calcium 9.1 Progress Note: A&P Assessment and Plan (1) Anemia: (2) Lymphedema: (3) Hypertension: (4) Diabetes: (5) Cellulitis: (6) Chronic kidney disease, stage III (moderate): (7) Acute blood loss anemia: Plan Admission findings: Uncontrolled high blood pressure, severe anemia with hemoglobin less than 6, thrombocythemia mild, creatinine somewhat of elevated above but not far from baseline with a category of chronic kidney disease stage III Possible acute blood loss anemia-she has had scopes before without finding any source check stool for occult blood, check PT PTT, type cross and transfuse 2 units if her hemoglobin comes up 2 points than likely discharge to home would not be surprising to need the third unit to get her above 8 Hypertension-continue with home medications Diabetes mellitus-insulin sliding scale Lymphedema-stable Admission status: Patient was placed in observation, medically necessary treatment likely to only span 1 midnight, observation status ?
--- NOTE | 2024-12-22 08:33 | CM.NOTE ---
Rounds made with Dr. Haile, pt will have repeat CBC this AM after transfusion. Possible discharge later today if Hgb stable.
[2024-12-22 08:58] LABS: Basophils Absolute Auto 0.1 10^3/uL (0.0-0.1); Basophils Percent Auto 0.9 % (0.2-2.0); Eosinophils Absolute Auto 0.3 10^3/uL (0.0-0.7); Eosinophils Percent Auto 3.6 % (0.9-7.0); Hematocrit 24.3 % (36.0-48.0); Hemoglobin 8.1 g/dL (12.0-16.0); Immature Granulocytes Abs Auto 0.03 10^3/uL (0.00-0.03); Immature Granulocytes Pct Auto 0.4 % (0.0-0.5); Lymphocytes Absolute Auto 1.2 10^3/uL (1.2-3.8); Lymphocytes Percent Auto 17.4 % (20.5-60.0); Mean Corpuscular HGB Conc 33.3 g/dL (29.9-35.2); Mean Corpuscular Hemoglobin 26.6 pg (26.7-34.0); Mean Corpuscular Volume 79.9 fL (81.0-99.0); Mean Platelet Volume 8.4 fL (9.5-13.5); Monocytes Absolute Auto 0.8 10^3/uL (0.3-0.8); Monocytes Percent Auto 11.7 % (1.7-12.0); Neutrophils Absolute Auto 4.7 10^3/uL (1.4-6.5); Platelet Count 338 10^3/uL (150-450); Red Blood Count 3.04 10^6/uL (4.20-5.40); Red Cell Distribution Width 15.9 % (11.0-15.0)
[2024-12-22 09:13] LABS: Anion Gap 12.8; BUN Creatinine Ratio 14.5; Calcium 8.5 mg/dL (8.5-10.1); Chloride 107 mmol/L (98-107); Estimated GFR (African America 35 (>=60 mL/min/1.73m^2); Estimated GFR (Non-African Ame 29 (>=60 mL/min/1.73m^2); Glucose 84 mg/dL (74-106); Potassium 4.8 mmol/L (3.5-5.1); Sodium 141 mmol/L (136-145)
--- NOTE | 2024-12-22 09:15 | P.DS_ITS ---
DS: Providers Provider Date of admission: 12/21/24 20:10 Primary care physician: Asher Haile MD Consults: 12/21/24 18:41 Consult to Pharmacy Routine Consulting Provider: Reason for consultation: Please Donaldson me when Med Rec is Updated Has provider been notified: No DS: Diagnosis Discharge Diagnosis (1) Anemia: (2) Lymphedema: (3) Hypertension: (4) Diabetes: (5) Cellulitis: (6) Chronic kidney disease, stage III (moderate): (7) Acute blood loss anemia: Plan Admission findings: Uncontrolled high blood pressure, severe anemia with hemoglobin less than 6, thrombocythemia mild, creatinine somewhat of elevated above but not far from baseline with a category of chronic kidney disease stage III Possible acute blood loss anemia-she has had scopes before without finding any source check stool for occult blood, check PT PTT, type cross and transfuse 2 units if her hemoglobin comes up 2 points than likely discharge to home would not be surprising to need the third unit to get her above 8 Hypertension-continue with home medications Diabetes mellitus-insulin sliding scale Lymphedema-stable Admission status: Patient was placed in observation, medically necessary treatment likely to only span 1 midnight, observation status ? DS: Summary Hospital Course Hospital Course: Patient well-known to me from the office and long-term care, presented with anemia, unable to give transfusion as an outpatient for 2 days so admitted patient overnight, she was given 2 units no significant increase in her hemoglobin so given 2 additional units she did have a better improvement than is currently above 8, because of the long standing issues with her anemia we will give her 1 more unit and then should be okay for discharge to home later today. No other complications at addition to having chest pain or shortness of breath, she has her chronic lymphedema present stable for her. So if stable later on this afternoon should be discharged to home in improving condition. Medication see list. Follow-up with me in the office within the next week. Arranging for outpatient visit with Dr. Xiao Time Spent with Patient Time attestation: Total time spent providing and/or coordinating discharge services: Exam Constitutional Vital Signs, click to edit/add: Last Vital Signs Temp 98.9 F 12/22/24 09:00 Pulse 88 12/22/24 09:00 Resp 16 12/22/24 09:00 BP 163/69 H 12/22/24 09:00 Pulse Ox 91 L 12/22/24 09:00 O2 Del Method Room Air 12/22/24 06:46 Documenting provider has reviewed patient's vital signs: yes Common normals: no apparent distress Chest Common normals: inspection of chest normal and palpation of chest normal Respiratory Common normals: normal respiratory effort, no retractions and clear to auscultation bilaterally Cardio Common normals: regular rate and no murmurs GI Common normals: Normal to inspection, nondistended, normoactive bowel sounds present, soft to palpation, non-tender, no hepatosplenomegaly and no masses Extremity Common normals: abnormal to inspection (3+ edema-lymphedema - unchanged) DS: Data Data Completed and Pending Labs on day of discharge: Labs from last 24 hours 12/22/24 12/22/24 12/21/24 08:46 02:02 17:50 WBC 7.0 8.0 9.4 RBC 3.04 L 2.57 L 2.48 L Hgb 8.1 L 6.4 L* 5.8 L* Hct 24.3 L 20.3 L* 19.4 L* MCV 79.9 L 79.0 L 78.2 L MCH 26.6 L 24.9 L 23.4 L MCHC 33.3 31.5 29.9 RDW 15.9 H 16.4 H 17.1 H Plt Count 338 381 462 H MPV 8.4 L 8.7 L 9.0 L Neut % (Auto) 66.0 69.6 Lymph % (Auto) 17.4 L 14.4 L Holt % (Auto) 11.7 11.1 Eos % (Auto) 3.6 3.7 Baso % (Auto) 0.9 0.7 Neut # (Auto) 4.7 6.5 Lymph # (Auto) 1.2 1.4 Holt # (Auto) 0.8 1.0 H Eos # (Auto) 0.3 0.4 Baso # (Auto) 0.1 0.1 Abs Immat Gran (auto) 0.03 0.05 H Imm/Tot Granulo (auto) 0.4 0.5 PT 10.9 INR 1.03 APTT 33.0 Sodium 139 Potassium 4.9 Chloride 104 Carbon Dioxide 25.4 Anion Gap 14.5 BUN 27.0 H Creatinine 1.99 H Est GFR ( Amer) 31 L Est GFR (Non-Af Amer) 25 L BUN/Creatinine Ratio 13.6 Glucose 118 H Calcium 9.1 Blood Type Antibody Screen Crossmatch See Detail 12/21/24 12:39 WBC RBC Hgb Hct MCV MCH MCHC RDW Plt Count MPV Neut % (Auto) Lymph % (Auto) Holt % (Auto) Eos % (Auto) Baso % (Auto) Neut # (Auto) Lymph # (Auto) Holt # (Auto) Eos # (Auto) Baso # (Auto) Abs Immat Gran (auto) Imm/Tot Granulo (auto) PT INR APTT Sodium Potassium Chloride Carbon Dioxide Anion Gap BUN Creatinine Est GFR ( Amer) Est GFR (Non-Af Amer) BUN/Creatinine Ratio Glucose Calcium Blood Type A Positive Antibody Screen Negative Crossmatch See Detail Discharge Plan Discharge Disposition: Home, Self-Care Condition: Fair Discharge Medications: Continued amlodipine 10 mg tablet 10 mg PO .qd aspirin 81 mg tablet,chewable 1 tab PO QDAY carvedilol 25 mg tablet 25 mg PO BIDWM cholecalciferol (vitamin D3) 50 mcg (2,000 unit) capsule 2,000 unit PO .qd cyclobenzaprine 10 mg tablet 10 mg PO Q12H famotidine 20 mg tablet 20 mg PO .qhs PRN (Reason: indigestion) glimepiride 4 mg tablet 4 mg PO Q24H Rx Instructions: with breakfast hydralazine 100 mg tablet 100 mg PO TID leflunomide 20 mg tablet 20 mg PO QDAY levothyroxine 150 mcg tablet 150 mcg PO .acb liothyronine 5 mcg tablet 5 mcg PO .acb rosuvastatin 5 mg tablet 5 mg PO QPM Januvia 50 mg tablet 50 mg PO QDAY Lokelma 10 gram powder in packet 10 g PO .QD Rx Instructions: DISSOLVE IN WATER Print Language: Uzbek Forms: Portal Instructions Follow Up Appointments: December 27 @ 9:[address] Haile [phone]
[2024-12-22] MEDS: AMLODIPINE BESYLATE 5 MG TABLET 10 MG PO (09:51)
[2024-12-22] MEDS: DIPHENHYDRAMINE HCL 25 MG CAPSULE PO (09:51)
[2024-12-22] MEDS: ACETAMINOPHEN 500 MG TABLET 1000 MG PO (09:51)
[2024-12-22] MEDS: CARVEDILOL 25 MG TABLET PO (09:52)
[2024-12-22] MEDS: CYCLOBENZAPRINE HCL 10 MG TABLET PO (09:52)
[2024-12-22] MEDS: METHYLPREDNISOLONE SOD SUCC PF 40 MG/ML VIAL IVP (09:52)
[2024-12-22] MEDS: FUROSEMIDE 40 MG/4 ML VIAL IVP (09:52)
[2024-12-22] MEDS: LIOTHYRONINE SODIUM 5 MCG TABLET PO (09:52)
[2024-12-22] MEDS: ASPIRIN 81 MG TAB.CHEW PO (09:52)
[2024-12-22] MEDS: SITAGLIPTIN PHOSPHATE 50 MG TABLET PO (09:52)
[2024-12-22] MEDS: CHOLECALCIFEROL (VITAMIN D3) 25 MCG/1,000 UNITS TABLET 50 MCG PO (09:54)
[2024-12-22] MEDS: HYDRALAZINE HCL 50 MG TABLET 100 MG PO ×2 (09:54→13:42)
[2024-12-22] MEDS: LEVOTHYROXINE SODIUM 75 MCG TABLET 150 MCG PO (09:54)
[2024-12-22] MEDS: SODIUM ZIRCONIUM CYCLOSILICATE 10 GM POWD.PACK PO (12:07)
[2024-12-22] MEDS: GLIMEPIRIDE 2 MG TABLET 4 MG PO (12:07)
[2024-12-22] MEDS: LEFLUNOMIDE 20 MG TABLET PO (12:08)
[2024-12-22 14:19] LABS: Hematocrit 30.8 % (36.0-48.0); Hemoglobin 10.2 g/dL (12.0-16.0); Mean Corpuscular HGB Conc 33.1 g/dL (29.9-35.2); Mean Corpuscular Hemoglobin 26.4 pg (26.7-34.0); Mean Corpuscular Volume 79.6 fL (81.0-99.0); Platelet Count 406 10^3/uL (150-450); Red Blood Count 3.87 10^6/uL (4.20-5.40); Red Cell Distribution Width 15.7 % (11.0-15.0)
--- NOTE | 2024-12-22 15:24 | CM.NOTE ---
Talked with pt regarding f/u with Dr. Xiao. MS financial secretary attempted to make appt, no answer in clinic. Pt provided with Dr. Xiao's telephone number.
--- NOTE | 2024-12-26 14:15 | CM.DCFOLLOWU ---
Person spoke with: Harmony How are you feeling? Much better How is your pain? No pain Did you understand your discharge instructions? Yes Do you have any questions about your discharge instructions? No Were you given any prescriptions at discharge? No Were you able to get your prescriptions filled? N/A Do you understand how to take your medications as ordered? Yes Do you have any questions about your follow up appointment and do you plan to keep your follow up appointment? No, I see Dr. Haile tomorrow and Dr. Xiao next week Is there anything else that you would like to discuss? No Questions/Comments/Concerns/Other:
== END 2024-12-22 15:21 | disposition home or self-care (01) ==
LOC: ER 18:05 → MS 20:35
PROVIDERS: Admitting Provider Family Medicine; Emergency Provider Emergency Medicine; PCP Family Medicine; Visit Provider Family Medicine
DX: D62 Acute posthemorrhagic anemia (principal); I12.9 Hypertensive chronic kidney disease with stage 1 through stage 4 chronic kidney disease, or unspecified chronic kidney disease; E11.22 Type 2 diabetes mellitus with diabetic chronic kidney disease; D75.839 Thrombocytosis, unspecified; I89.0 Lymphedema, not elsewhere classified; N18.30 Chronic kidney disease, stage 3 unspecified; Z90.49 Acquired absence of other specified parts of digestive tract; Z90.710 Acquired absence of both cervix and uterus; Z79.84 Long term (current) use of oral hypoglycemic drugs
CPT/HCPCS: 36415; 36430; 80048; 82948; 85014; 85018; 85025; 85027; 85610; 85730; 86850; 86900; 86901; 86923; 93005; 94667; 94668; 94761; 96374; 96375; 99285; G0328; G0378; J1938; J2919; P9016

== ENCOUNTER 2024-12-27 09:56 | Outpatient (OUT) | payer OTHER, SELFPAY ==
--- OUTSIDE RECORDS SUMMARY | 2024-12-27 09:59 | XMS_ITS | Clinical Summary ---
[facility] Address [id number] [address] 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
--- OUTSIDE RECORDS SUMMARY | 2024-12-27 09:59 | XMS_ITS | Encounter Summary ---
Author Organization [facility] Address [address] [place], [place] [id number] Care Team Providers Care Fabricator Foam Rubber Name Role Phone Asher Haile MD Primary Care Provider [phone] Chris Avina Unavailable Source Comments In the event this information is protected by the Federal Confidentiality of Alcohol and Drug AbusePatient Records regulations: The Federal rules restrict any use of the information to criminally investigate or prosecute any alcohol or drug abuse patient.[facility] Encounter Details Date Type Department Care Team (Late st Contact Info) Description 06/27/2013 Abstract Cardiology [address] [place] [address] Chris Avina [address] [place] [address] Social History Tobacco Use Types Packs/Day Years Used Date Smoking Tobacco: Never Assessed Comments Unknown Sex and Gender Information Value Date Recorded Sex Assigned at Not on file Legal Sex Female 3:35 PM EST Gender Identity Not on file Sexual Orientation Not on file documented as of this encounter Plan of Treatment Not on file documented as of this encounter Visit Diagnoses Diagnosis Abnormal EKG- Primary Nonspecific abnormal electrocardiogram (ECG) (EKG) Thyroid gland disease Unspecified disorder of thyroid Diabetes (HCC) Type II or unspecified type diabetes mellitus without mention of complication, not stated as uncontrolled documented in this encounter Care Teams Fabricator Foam Rubber Relationship Specialty Start Date End Date Asher Haile MD PCP - General Family Medicine 06/24/13 Chris Avina Primary Staff Physician Cardiology 10/18/14 6 documented as of this encounter
--- OUTSIDE RECORDS SUMMARY | 2024-12-27 09:59 | XMS_ITS | Encounter Summary ---
Author Organization [facility] Address [address] [place] [address] Care Team Providers Care Sparmaker Name Role Phone Asher Haile MD Primary Care Provider [phone] Encounter Details Date Type Department Care Team (Late st Contact Info) Description 05/10/2024 Abstract [facility] [address] [place] [address] Unallocated, [facility] Provider, [address] [place] [address] Social History Tobacco Use Types Packs/Day Years Used Date Smoking Tobacco: Never Assessed Comments Unknown Sex and Gender Information Value Date Recorded Sex Assigned at Not on file Legal Sex Female 7:00 PM EDT Gender Identity Not on file Sexual Orientation Not on file documented as of this encounter Plan of Treatment Not on file documented as of this encounter Visit Diagnoses Not on filedocumented in this encounter Care Teams Sparmaker Relationship Specialty Start Date End Date Asher Haile MD PCP - General Family Medicine 05/18/24 documented as of this encounter
--- OUTSIDE RECORDS SUMMARY | 2024-12-27 09:59 | XMS_ITS | Continuity of Care Document ---
Author Organization [facility] Address [address] [place] [id number] Phone [phone] Care Team Providers Care Electromechanical Technologist Name Role Phone Asher Haile MD Care Team Information Insulation Cutter [phone] Social History Type Date Description Comments ETOH Use Denies alcohol use Tobacco Use Start: Unknown Patient has never smoked Recreational Drug Use Denies Drug Use Assessments Date Code Description Provider 05/13/2024 N17.9 Acute kidney failure, unspec ified Dilshad Zamudio MD 05/13/2024 N18.30 Chronic kidney disease, stag e 3 unspecified Dilshad Zamudio MD 05/13/2024 R47.01 Bryan Caban 05/13/2024 G60.0 Hereditary motor and sensory neuropathy Dilshad Zamudio MD 05/12/2024 N17.9 Acute kidney failure, unspec ified Dilshad Zamudio MD 05/12/2024 N18.30 Chronic kidney disease, stag e 3 unspecified Dilshad Zamudio MD 05/12/2024 R47.01 Aphasia Bryan Hunter 05/12/2024 G60.0 Hereditary motor and sensory neuropathy Dilshad Zamudio MD 05/11/2024 N17.9 Acute kidney failure, unspec ified Dilshad Zamudio MD 05/11/2024 N18.30 Chronic kidney disease, stag e 3 unspecified Dilshad Zamudio MD 05/11/2024 R47.01 Bryan Caban 05/11/2024 G60.0 Hereditary motor and sensory neuropathy Dilshad Zamudio MD
--- OUTSIDE RECORDS SUMMARY | 2024-12-27 09:59 | XMS_ITS | Clinical Summary ---
Author Organization [facility] Address [address] [place] [address] Care Team Providers Care Derivatives Trader Name Role Phone Asher Haile MD Primary Care Provider [phone] Allergies Active Allergy Reactions Criticality Noted Date Comments Amoxicillin Rash Low 04/01/2024 Cefepime Other (See Comments) 07/08/2024 Caused RILEY Ceftriaxone Itching,Other (See Comments) High 04/16/2024 Rash, NV with Rocephin but tolerated Keflex per patient as recorded in ID note on 04/18/24 Meperidine Palpitations,Other (See Comments) High 06/28/2013 tachycardia Morphine Other (See Comments),Nausea And Vomiting High 06/28/2013 Numbness/tingling around face Other Reaction(s): numbness nose and mouth Penicillin G 07/21/2024 Penicillins Rash High 06/28/2013 Sulfa Antibiotics Hives,Rash High 06/28/2013 Medications leflunomide (ARAVA) 20 MG tablet Take 1 tablet by mouth daily Active levothyroxine (SYNTHROID) 150 MCG tablet Take 1 tablet by mouth Daily Active liothyronine (CYTOMEL) 5 MCG tablet Take 1 tablet by mouth daily Active rosuvastatin (CRESTOR) 5 MG tablet Take 1 tablet by mouth every morning Active famotidine (PEPCID) 20 MG tablet Take 1 tablet by mouth nightly Active cyclobenzaprine (FLEXERIL) 10 MG tablet Take 2 tablets by mouth nightly Active amLODIPine (NORVASC) 10 MG tablet Take 1 tablet by mouth daily Active carvedilol (COREG) 25 MG tablet Take 1 tablet by mouth 2 times daily (with meals) Active vitamin D (VITAMIN D3) 50 MCG (1999 UT) CAPS capsule Take 1 capsule by mouth daily Active aspirin 81 MG chewable tablet Take 1 tablet by mouth daily 30 tablet 3 08/26/2024 Active hydrALAZINE (APRESOLINE) 100 MG tablet Take 1 tablet by mouth 3 times daily 90 tablet 3 08/26/2024 Active Active Problems Problem Noted Date Diagnosed Date Anemia due to chronic kidney disease 08/20/2024 Blood loss anemia 08/20/2024 Hematoma 08/19/2024 MGUS (monoclonal gammopathy of unknown significa nce) 08/04/2024 Secondary rhabdomyolysis 08/02/2024 Anemia 08/02/2024 Stage 3a chronic kidney disease 07/28/2024 Leg edema, right 07/28/2024 Hx of type 2 diabetes mellitus 07/28/2024 Cellulitis of foot 07/13/2024 RILEY (acute kidney injury) 07/12/2024 Hyperkalemia 07/12/2024 Iron deficiency anemia due to chronic blood loss 07/09/2024 Acute blood loss anemia 07/08/2024 Post-op pain 04/19/2024 Hypoglycemia associated with type 2 diabetes seymour litus 04/19/2024 Ulcer of left heel, with fat layer exposed 04/18 Charcot's joint of ankle, left 04/17/2024 Disorder associated with type 2 diabetes mellitu s 04/15/2024 Diabetic peripheral neuropat hy associated with type 2 diabetes mellitus 04/15/2024 Essential hypertension 04/15/2024 Gastroesophageal reflux disease without esophagi tis 11/05/2022 Chronic multifocal osteomyelitis, left ankle and foot 07/23/2022 Atherosclerosis of coronary artery 07/23/2022 Age-related osteoporosis wit hout current pathological fracture 07/23/2022 Resolved Problems Problem Noted Date Diagnosed Date Resolved Date Renal dysfunction 07/25/2024 08/04/2024 Post-operative state 07/08/2024 025 Post-operative state 04/13/2024 024 Family History Medical History Relation Name Comments Lung Cancer Brother Lung Cancer Mother Breast Cancer Sister Relation Name Status Comments Brother Mother Sister Social History Tobacco Use Types Packs/Day Years Used Date Smoking Tobacco: Never Smokeless Tobacco: Never Tobacco Cessation:Counseling Given: Not Answered Alcohol Use Standard Drinks/Week Comments Not Currently 0 (1 standard drink = 0.6 oz pur e alcohol) [facility] Utilities Answer Date Recorded In the past 12 months has th e electric, gas, oil, or water company threatened to shut off services in your home? No 08/19/2024 AUDIT-C Answer Date Recorded Q1: How often do you have a drink containing alcohol? Never 08/19/2024 Q2: How many drinks containi ng alcohol do you have on a typical day when you are drinking? Patient does not drink Q3: How often do you have si x or more drinks on one occasion? Never 08/19/2024 Hunger Vital Sign Answer Date Recorded Within the past 12 months, y ou worried that your food would run out before you got the money to buy more. Never true 08/19/19 25 Within the past 12 months, t he food you bought just didn't last and you didn't have money to get more. Never true 08/19/2024 PRAPARE - Transportation Answer Date Re corded In the past 12 months, has l ack of transportation kept you from medical appointments or from getting medications? No 07/22 In the past 12 months, has l ack of transportation kept you from meetings, work, or from getting things needed for daily living? No 08/19/2024 Housing Stability Vital Sign Answer Alexander e Recorded In the last 12 months, was t here a time when you were not able to pay the mortgage or rent on time? No 08/19/2024 In the past 12 months, how m any times have you moved where you were living? 0 08/19/2024 At any time in the past 12 m [facility], were you homeless or living in a penitentiary (including now)? No 08/19/2024 Food Insecurity Answer Date Recorded Within the past 12 months, y ou worried that your food would run out before you got the money to buy more. 1 08/19/2024 Within the past 12 months, t he food you bought just didn't last and you didn't have money to get more. 1 08/19/2024 Interpersonal Safety Domain Source: IP Abuse Scr eening Answer Date Recorded Physical abuse Denies 08/19/2024 Verbal abuse Denies 08/19/2024 Emotional abuse Denies 08/19/2024 Financial abuse Denies 08/19/2024 Sexual abuse Denies 08/19/2024 Comments No Sex and Gender Information Value Date Recorded Sex Assigned at Not on file Legal Sex Female 2:09 PM EDT Gender Identity Not on file Sexual Orientation Not on file Last Filed Vital Signs Vital Sign Reading Time Taken Comments Blood Pressure 174/91 08/26/2024 11:47 AM EST Pulse 87 08/26/2024 11:47 AM EST Temperature 36.4 C (97.5 F) 08/26/2024 11:47 AM EST Respiratory Rate 16 08/26/2024 11:47 AM EST Oxygen Saturation 95% 08/26/2024 11:47 AM EST Inhaled Oxygen Concentration - - Weight 117.9 kg (260 lb) 08/19/2024 11:04 AM EST Height 160 cm (5' 3 ) 08/19/2024 11:04 AM EST Body Mass Index 46.06 08/19/2024 11:04 AM EST Plan of Treatment Health Maintenance Due Date Last Done Comments Lipids 1973 Depression Screen 1975 HIV screen 1978 Diabetic Alb to Cr ratio (uACR) test 1981 Diabetic retinal exam 1981 Hepatitis C screen 1981 DTaP/Tdap/Td vaccine (1 - Tdap) 1982 Pneumococcal 50+ years Vaccine (1 of 2 - PCV) 1982 Breast cancer screen 2003 Fecal-DNA (Cologuard): Average risk 2008 Sigmoidoscopy/CT colonography 2008 Shingles vaccine (1 of 2) 2013 Respiratory Syncytial Virus (RSV) or age 60 yrs+ (1 - Risk 60-74 years 1-dose series) 2023 COVID-19 Vaccine ( - season) 2024 07/09/2021, 01/01/2021, 12/11/2020 Flu vaccine (Season Ended) 2025 A1C test (Diabetic or Prediabetic) 07/09/2025 07/09/2024, 04/01/2024 Diabetic foot exam 07/25/2025 07/25/2024 FIT/FOBT: Average risk 07/29/2025 07/29/2024 GFR test (Diabetes, CKD 3-4, OR last GFR 15-59) 08/26/2025 08/26/2024, 08/25/2024, 08/24/2024, Additional history exists Colonoscopy 08/04/2034 08/04/2024 Colorectal Cancer Screen 08/04/2034 Diabetes screen Discontinued 07/09/2024, 04/01/2024 Hepatitis A vaccine Aged Out No longe r eligible based on patient's age to complete this topic Hepatitis B vaccine Aged Out No longe r eligible based on patient's age to complete this topic Hib vaccine Aged Out No longer eligi ble based on patient's age to complete this topic Meningococcal (ACWY) vaccine Aged Out No longer eligible based on patient's age to complete this topic Meningococcal B vaccine Aged Out No l onger eligible based on patient's age to complete this topic Polio vaccine Aged Out No longer elig ible based on patient's age to complete this topic Medical Devices Implanted Type Area Wheat Buyer Device Identifier Shelf Expiration Date Model / Serial / Lot Cement Bne 40gm W/ Gent Hi Visc Radpq For Rev Surg - [id number] Implanted:Qty: 1 on 04/13/2024 by Clifford Winchester DPM at [facility] Left: Ankle [employer] [id number] 01/16/2026 [id number] / / [id number] Cement Bne 40gm W/ Gent Hi Visc Radpq For Rev Surg - [id number] Implanted:Qty: 1 on 04/13/2024 by Clifford Winchester DPM at [facility] Left: Ankle [employer]WD [id number] 01/16/2026 [id number] / / [id number] Dressing Wnd Micronized Partic 1000 Mg Matristem Micromatrix - [id number] Implanted:Qty: 1 on 04/13/2024 by Clifford Winchester DPM at [facility] Left: Ankle [employer]WD [id number] 11/16/2024 [id number] / [id number] / [id number] Screw Im Nail L65mm Dia5mm Calcnl Ti Thrd Hd For Ank Compr - [id number] Implanted:Qty: 1 on 08/01/2024 by Clifford Winchester DPM at [facility] Left: Foot [employer]WD 11/05/2026 [id number] / / [id number] Endcap Orth L5mm Ank Compr Nail June - [id number] Implanted:Qty: 1 on 08/01/2024 by Clifford Winchester DPM at [facility] Left: Foot [employer]WD 06/17/2028 [id number] / / [id number] Screw Bne L90 Mm Od55 Mm Full Thrd Monster Impl - [id number] Implanted:Qty: 1 on 08/01/2024 by Clifford Winchester DPM at [facility] Left: Foot PARAGON 28-WD [id number] / / Screw Bne Nlck 4.5x55 Mm For Plate Baby Gorilla Silverback - [id number] Implanted:Qty: 1 on 08/01/2024 by Clifford Winchester DPM at [facility] Left: Foot PARAGON 28-WD [id number] / / Custom Talar Cage Small Implanted:Qty: 1 on 08/01/2024 by Clifford Winchester DPM at [facility] Left: Foot / / [id number] Custom Guides Implanted:Qty: 1 on 08/01/2024 by Clifford Winchester DPM at [facility] Left: Foot / / [id number] Graft Bne 10 Cc Cellular Bne Mtrx V92 Fc+ - [id number] Implanted:Qty: 1 on 08/01/2024 by Clifford Winchester DPM at [facility] Left: Foot PARAGON 28-WD 02/07/2026 [id number] / [id number] / Nail Im L250mm Wmw83hm Ank Hindfoot Ti Jovan Compr - [id number] Implanted:Qty: 1 on 08/01/2024 by Clifford Winchester DPM at [facility] Left: Foot [employer]WD 11/25/2027 [id number] / / [id number] Graft Bne Ptty 5 Cc Inj Dbm Beast - [id number] Implanted:Qty: 1 on 08/01/2024 by Clifford Winchester DPM at [facility] Left: Foot PARAGON 28-WD 07/23/2026 [id number] / [id number] / Screw Bne L27mm Dia5mm Ti Thrd Lo Prof - [id number] Implanted:Qty: 1 on 08/01/2024 by Clifford Winchester DPM at [facility] Left: Foot [employer]WD 02/25/2028 [id number] / / [id number] Screw Bne L27mm Dia5mm Ti Thrd Lo Prof - [id number] Implanted:Qty: 1 on 08/01/2024 by Clifford Winchester DPM at [facility] Left: Foot [employer] 02/25/2029 [id number] / / [id number] Explanted Type Area Wheat Buyer Device Identifier Shelf Expiration Date Model / Serial / Lot Wire Fix L150mm Od1.4mm Nickel Chrom Smooth Sgl End Trcr - [id number] Explanted:Qty: 2 on 08/01/2024 at [facility] Left: Foot PARAGON 28-WD [id number] / / Description:CHARGE ONLY Guidewire Surg L150mm Dia1.6mm Nickel Chrom Smooth Sgl End - [id number] Explanted:Qty: 2 on 08/01/2024 at [facility] Left: Foot PARAGON 28-WD [id number] / / Description:CHARGE ONLY Screw Bne L30mm Dia5mm Ti Thrd Lo Prof - [id number] Explanted:Qty: 1 on 08/01/2024 at [facility] Left: Foot [employer]WD 06/09/2028 [id number] / / [id number] Wire Fix L229mm Od1.1mm Nonsterile S Stl Smooth Trcr Pnt - [id number] Explanted:Qty: 1 on 08/24/2024 at [facility] Left: Ankle [employer]WD [id number] / / Procedures Procedure Name Priority Date/Time Associated Diagnosis Comments BASIC METABOLIC PANEL Routine 08/26/2024 6:20 AM EST BLOOD OCCULT STOOL DIAGNOSTIC [employer] Label Print 07/29/2024 3:20 PM EST HEMOGLOBIN A1C Routine 07/09/2024 5:35 AM EST from Last 3 Months or Most Recently Relevant to Health Maintenance Results * (ABNORMAL) Basic Metabolic Panel (08/26/2024 6:20 AM EST) Sodium 138 136 - 145 mmol/L 08/26/2024 6:20 AM [facility] Potassium 4.0 3.7 - 5.3 mmol/L 08/26/2024 6:20 AM EST [facility] Chloride 109(H) 98 - 107 mmol/L 08/26/2024 6:20 AM [facility] CO2 19(L) 20 - 31 mmol/L 08/26/2024 6:20 AM [facility] Anion Gap 11 9 - 16 mmol/L 08/26/2024 6:20 AM [facility] Glucose 138(H) 82 - 115 mg/dL 08/26/2024 6:20 AM [facility] BUN 35(H) 8 - 23 mg/dL 08/26/2024 6:20 AM [facility] Creatinine 2.4(H) 0.50 - 0.90 mg/dL 08/26/2024 6:20 AM [facility] Est, Glom Filt Rate 23(L) >60 mL/min/1.7 3m2 08/26/2024 6:20 AM [facility] Comment: These results are not intended for use in patients <18 years of age. eGFR results are calculated without a race factor using the 2020 CKD-EPI equation. Careful clinical correlation is recommended, particularly when comparing to results calculated using previous equations. The CKD-EPI equation is less accurate in patients with extremes of muscle mass, extra-renal metabolism of creatine, excessive creatine ingestion, or following therapy that affects renal tubular secretion. Calcium 8.4(L) 8.8 - 10.2 mg/dL 08/26/2024 6:20 AM EST [facility] 08/26/2024 6:20 AM EST 08/26/2024 6:21 AM EST us Rosendo BENITEZM CHEMISTRY ORDERABLES Final Result [facility] [address] [place] [address], [facility] [phone] * (ABNORMAL) Blood Occult Stool Diagnostic (07/29/2024 3:20 PM EST) Occult Blood, Stool #1 POSITIVE(A ) NEGATIVE 07/29/2024 3:20 PM EST [facility] Date, Stool #1 11,025 07/29/2024 3:20 PM EST [facility] Time, Stool #1 1,520 07/29/2024 3:20 PM EST [facility] STOOL SPECIMEN / Unknown 07/29/2024 3:20 PM EST 07/29/2024 3:21 PM EST us Rajat Raza MD BODY FLUIDS AND STOOLS ORDERABL ES Final Result [facility] [address] [place] [address], [facility] [phone] * (ABNORMAL) Hemoglobin A1C (07/09/2024 5:35 AM EST) Hemoglobin A1C 8.2(H) 4.0 - 6.0 % 07/09/2024 5:35 AM EST [facility] Estimated Avg Glucose 189 mg/dL 07/09/2024 5:35 AM EST [facility] Comment: The ADA and AACC recommend providing the estimated average glucose result to permit better patient understanding of their HBA1c result. 07/09/2024 5:35 AM EST 07/09/2024 5:36 AM EST us Leonardo Gale DPM CHEMISTRY ORDERABLES [place] Result [facility] [address] [place] [address], [facility] [phone] [facility] [employer] [address] [place] [address], [facility] [phone] from Last 3 Months or Most Recently Relevant to Health Maintenance Additional Health Concerns Infection Onset Date Last Indicated MRSA 07/11/2024 07/11/2024 Insurance [facility] [employer] SAMANTHA Advance Directives * Full Code (Latest Code Status on File) Date Activated Date Inactivated Comments 08/19/2024 1:08 PM 08/26/2024 6:15 PM * Full Code Date Activated Date Inactivated Comments 07/25/2024 2:58 PM 08/04/2024 9:40 PM * Full Code Date Activated Date Inactivated Comments 07/08/2024 11:46 AM 07/21/2024 7:34 PM * Full Code Date Activated Date Inactivated Comments 04/13/2024 6:19 PM 04/19/2024 6:34 PM Care Teams Derivatives Trader Relationship Specialty Start Date End Date Asher Haile MD [address] [place] [address] PCP - General Family Medicine 12/18/23
--- OUTSIDE RECORDS SUMMARY | 2024-12-27 09:59 | XMS_ITS | Clinical Summary ---
Author Organization [facility] Address [address] [place] [address] Care Team Providers Care Truck Car And Bus Cleaner Name Role Phone Asher Haile MD Primary Care Provider [phone] Social History Tobacco Use Types Packs/Day Years Used Date Smoking Tobacco: Never Assessed Comments Unknown Sex and Gender Information Value Date Recorded Sex Assigned at Not on file Legal Sex Female 7:00 PM EDT Gender Identity Not on file Sexual Orientation Not on file Last Filed Vital Signs Vital Sign Reading Time Taken Comments Blood Pressure - - Pulse - - Temperature - - Respiratory Rate - - Oxygen Saturation - - Inhaled Oxygen Concentration - - Weight 132 kg (291 lb) 01/28/2022 12:00 PM EDT Height 170.2 cm (5' 7 ) 01/28/2022 12:00 PM EDT Body Mass Index 45.58 01/28/2022 12:00 PM EDT Plan of Treatment Health Maintenance Due Date Last Done Comments CT Colonography 1963 Colonoscopy 1963 Colorectal Cancer Screening 1963 FIT-DNA 1963 FIT 1963 FOBT 1963 Sigmoidoscopy 1963 Pap Smear 1984 Cervical Cancer Screening 1993 HPV/Cotest 1993 Mammogram 2003 Influenza Vaccine (Season Ended) 2025 Insurance [employer] MEDICARE Care Teams Truck Car And Bus Cleaner Relationship Specialty Start Date End Date Asher Haile MD PCP - General Family Medicine 05/18/24
--- OUTSIDE RECORDS SUMMARY | 2024-12-27 09:59 | XMS_ITS | Clinical Summary ---
Author Organization [facility] Address [address] [place], [place] [id number] Care Team Providers Care Can Patcher Name Role Phone Asher Haile MD Primary Care Provider [phone] Allergies Active Allergy Reactions Criticality Noted Date Comments Meperidine Other: See Comments 06/28/2013 tachycardia Morphine Vomiting High 06/28/2013 Penicillins Rash 06/28/2013 Sulfa (Sulfonamide Antibiotics) Rash 06/28/2013 Medications CARVEDILOL 25 mg tablet Take 25 mg by mouth once daily. 06/01/2013 Active GLIMEPIRIDE 4 mg tablet Take 4 mg by mouth twice daily with meals. 06/11/2013 Active HYDROCHLOROTHIAZ EFE 25 mg tablet Take 25 mg by mouth once daily. 06/01/2013 Active ACETAMINOPHEN-HY DROCODONE 5-500 mg tablet Take 1 tablet by mouth twice daily. 06/17/2013 Active LEVOTHYROXINE 100 mcg tablet Take 100 mcg by mouth once daily. 06/01/2013 Active LISINOPRIL 40 mg tablet Take 40 mg by mouth once daily. 06/14/2013 Active METFORMIN 500 mg tablet Take 500 mg by mouth daily with breakfast. 06/22/2013 Active OMEPRAZOLE 20 mg capsule Take 20 mg by mouth once daily. 06/01/2013 Active JANUVIA 100 mg tablet Take 100 mg by mouth once daily. 06/01/2013 Active colesevelam (WELCHOL) 625 mg tablet Take 1,875 mg by mouth twice daily with meals. Active leflunomide (ARAVA) 20 mg tablet Take 20 mg by mouth once daily. Active Active Problems Problem Noted Date Diagnosed Date Abnormal EKG 06/27/2013 Thyroid gland disease 06/27/2013 Diabetes 06/27/2013 Family History Medical History Relation Comments Diabetes Brother 2 Diabetes Father Emphysema Father Cancer Mother Diabetes Mother Heart Sister 2 Relation Status Comments Brother 1 Alive DM Brother 2 Father DM, emphysema, H [place], enlarged heart Mother cancer, DM Sister 1 pacreatitis, Catrachita b? Sister 2 Social History Tobacco Use Types Packs/Day Years Used Date Smoking Tobacco: Former Smokeless Tobacco: Never Alcohol Use Standard Drinks/Week Comments No 0 (1 standard drink = 0.6 oz pur e alcohol) Comments Unknown Sex and Gender Information Value Date Recorded Sex Assigned at Not on file Legal Sex Female 3:35 PM EST Gender Identity Not on file Sexual Orientation Not on file Last Filed Vital Signs Vital Sign Reading Time Taken Comments Blood Pressure 143/94 06/28/2013 11:05 AM EST la rge cuff Pulse 94 06/28/2013 11:05 AM EST Temperature - - Respiratory Rate 14 06/28/2013 11:05 AM EST Oxygen Saturation 98% 06/28/2013 11:05 AM EST Inhaled Oxygen Concentration - - Weight 160.6 kg (354 lb) 06/28/2013 11:05 AM EST Height 165.1 cm (5' 5 ) 06/28/2013 11:05 AM EST Body Mass Index 58.91 06/28/2013 11:05 AM EST Plan of Treatment Health Maintenance Due Date Last Done Comments Anxiety Screening 1981 Depression Screening 1981 HIV Screening 1981 Hepatitis C Screening 1981 DTaP,Tdap,Td Vaccine (1 - Tdap) 1982 Cervical Cancer Screening [address] Colonography 2008 Cologuard (FIT-DNA) 2008 Colonoscopy 2008 Colorectal Cancer Screening 2008 Diabetes Screening 2008 Fecal Occult Blood 2008 Lipid Screening 2008 Sigmoidoscopy 2008 Pneumococcal Vaccine: 50+ (1 of 1 - PCV) 2013 Shingrix Vaccine (1 of 2) 2013 Covid-19 Vaccine (1 - 2023- season) 2024 Influenza Vaccine (Season Ended) 2025 RSV Vaccine (1 - 1-dose 75+ series) 2038 Insurance Care Teams Can Patcher Relationship Specialty Start Date End Date Asher Haile MD PCP - General Family Medicine 06/24/13
--- OUTSIDE RECORDS SUMMARY | 2024-12-27 09:59 | XMS_ITS | Clinical Summary ---
Author Organization [facility] Address [address] [place] [address] Phone Care Team Providers Care Clerical Dentist Assistant Name Role Phone Unavailable Primary Care Provider Unavailabl e Social History Tobacco Use Types Packs/Day Years Used Date Smoking Tobacco: Never Assessed Comments Unknown Sex and Gender Information Value Date Recorded Sex Assigned at Not on file Legal Sex Female 10:35 PM EST Gender Identity Not on file Sexual Orientation Not on file Plan of Treatment Health Maintenance Due Date Last Done Comments CT Colonography 1963 Colonoscopy 1963 Colorectal Cancer Screening 1963 FIT-DNA (Cologuard) 1963 FIT 1963 HIV Screening 1963 Lipid Panel 1963 Sigmoidoscopy 1963 Yearly Adult Physical 1963 MMR Vaccines (1 of 1 - Stand tomi series) 1964 Hepatitis C Screening 1981 Cervical Cancer Screening 1984 HPV/Cotest 1984 Pap Smear 1984 DTaP/Tdap/Td Vaccines (1 - Tdap) 1985 Mammogram 2003 Pneumococcal Vaccine (1 of 1 - PCV) 2013 Zoster Vaccines (1 of 2) 2013 COVID-19 Vaccine ( - 2023-2 5 season) 2024 Influenza Vaccine (Season Ended) 2025 RSV High Risk: (Elderly (60+ ) or Population) (1 - 1-dose 75+ series) 2038 HIB Vaccines Aged Out No longer eligi ble based on patient's age to complete this topic HPV Vaccines Aged Out No longer eligi ble based on patient's age to complete this topic Hepatitis A Vaccines Aged Out No long er eligible based on patient's age to complete this topic Hepatitis B Vaccines Aged Out No long er eligible based on patient's age to complete this topic IPV Vaccines Aged Out No longer eligi ble based on patient's age to complete this topic Meningococcal Vaccine Aged Out No eloy rodrigo eligible based on patient's age to complete this topic Rotavirus Vaccines Aged Out No longer eligible based on patient's age to complete this topic Insurance
--- OUTSIDE RECORDS SUMMARY | 2024-12-27 09:59 | XMS_ITS | Encounter Summary ---
Author Organization [facility] Address [address] [place] [address] Care Team Providers Care Building Consultant Name Role Phone Asher Haile MD Primary Care Provider [phone] Encounter Details Date Type Department Care Team (Late st Contact Info) Description 07/25/2024 Telephone [facility] [address] [place] [address] Rosendo Crews, DPM [address] [place], [place] [id number] Social History Tobacco Use Types Packs/Day Years Used Date Smoking Tobacco: Never Smokeless Tobacco: Never Alcohol Use Standard Drinks/Week Comments Not Currently 0 (1 standard drink = 0.6 oz pur e alcohol) [facility] Utilities Answer Date Recorded In the past 12 months has th e [employer], gas, oil, or water [employer] threatened to shut off services in your home? No 07/25/2024 Hunger Vital Sign Answer Date Recorded Within the past 12 months, y ou worried that your food would run out before you got the money to buy more. Never true 07/25/19 25 Within the past 12 months, t he food you bought just didn't last and you didn't have money to get more. Never true 07/25/2024 PRAPARE - Transportation Answer Date Re corded In the past 12 months, has l ack of transportation kept you from medical appointments or from getting medications? No 12/2024 In the past 12 months, has l ack of transportation kept you from meetings, work, or from getting things needed for daily living? No 07/25/2024 Housing Stability Vital Sign Answer Alexander e Recorded In the last 12 months, was t here a time when you were not able to pay the mortgage or rent on time? No 07/25/2024 In the past 12 months, how m any times have you moved where you were living? 0 07/25/2024 At any time in the past 12 m [facility], were you homeless or living in a chcf (including now)? No 07/25/2024 Food Insecurity Answer Date Recorded Within the past 12 months, y ou worried that your food would run out before you got the money to buy more. 1 07/25/2024 Within the past 12 months, t he food you bought just didn't last and you didn't have money to get more. 1 07/25/2024 Interpersonal Safety Domain Source: IP Abuse Scr eening Answer Date Recorded Physical abuse Denies 07/25/2024 Verbal abuse Denies 07/25/2024 Emotional abuse Denies 07/25/2024 Financial abuse Denies 07/25/2024 Sexual abuse Denies 07/25/2024 Comments No Sex and Gender Information Value Date Recorded Sex Assigned at Not on file Legal Sex Female 2:09 PM EDT Gender Identity Not on file Sexual Orientation Not on file documented as of this encounter Plan of Treatment Not on file documented as of this encounter Visit Diagnoses Not on filedocumented in this encounter Additional Health Concerns Infection Onset Date Last Indicated Resolved Time MRSA 07/11/2024 07/11/2024 documented as of this encounter Care Teams Building Consultant Relationship Specialty Start Date End Date Asher Haile MD [address] [place] [address] PCP - General Family Medicine 12/18/23 documented as of this encounter
--- OUTSIDE RECORDS SUMMARY | 2024-12-27 09:59 | XMS_ITS | Encounter Summary ---
Author Organization [facility] Address [address] [place] [address] Care Team Providers Care Application Packager Name Role Phone Asher Haile MD Primary Care Provider [phone] Encounter Details Date Type Department Care Team (Late st Contact Info) Description 08/25/[address] [facility] [address] [place] [address] Provider, MD Boris Social History Tobacco Use Types Packs/Day Years Used Date Smoking Tobacco: Never Smokeless Tobacco: Never Alcohol Use Standard Drinks/Week Comments Not Currently 0 (1 standard drink = 0.6 oz pur e alcohol) [facility] Utilities Answer Date Recorded In the past 12 months has e [employer], gas, oil, or water [employer] threatened to shut off services in your [...] any time in the past 12 m onths, were you homeless or living in a intermediate (including now)? No 08/19/2024 Food Insecurity Answer [...] on file documented as of this encounter Procedures Procedure Name Priority Date/Time Associated Diagnosis Comments CULTURE, GENERIC Routine 08/23/2024 1:03 PM EST documented in this encounter Results * Culture, Generic (08/23/2024 1:03 PM EST) us Historical Provider MICROBIOLOGY - GENERAL OR DERABLES Final Result documented in this encounter Visit Diagnoses Not on filedocumented in this encounter Additional Health Concerns Infection Onset Date Last Indicated Resolved Time MRSA 07/11/2024 07/11/2024 documented as of this encounter Care Teams Application Packager Relationship Specialty Start Date End Date Asher Haile MD [address] [place] [address] PCP - General Family Medicine 12/18/23 documented as of this encounter
[2024-12-27 10:20] LABS: Basophils Absolute Auto 0.1 10^3/uL (0.0-0.1); Basophils Percent Auto 0.7 % (0.2-2.0); Eosinophils Absolute Auto 0.3 10^3/uL (0.0-0.7); Eosinophils Percent Auto 2.5 % (0.9-7.0); Hematocrit 33.5 % (36.0-48.0); Hemoglobin 10.5 g/dL (12.0-16.0); Immature Granulocytes Abs Auto 0.05 10^3/uL (0.00-0.03); Immature Granulocytes Pct Auto 0.5 % (0.0-0.5); Lymphocytes Absolute Auto 1.1 10^3/uL (1.2-3.8); Mean Corpuscular HGB Conc 31.3 g/dL (29.9-35.2); Mean Corpuscular Hemoglobin 26.1 pg (26.7-34.0); Mean Corpuscular Volume 83.3 fL (81.0-99.0); Monocytes Percent Auto 9.9 % (1.7-12.0); Neutrophils Absolute Auto 8.1 10^3/uL (1.4-6.5); Neutrophils Percent Auto 76.4 % (43.0-75.0); Platelet Count 391 10^3/uL (150-450); Red Blood Count 4.02 10^6/uL (4.20-5.40); Red Cell Distribution Width 17.3 % (11.0-15.0); White Blood Count 10.6 10^3/uL (4.0-11.0)
[2024-12-28 05:09] LABS: Vitamin B12 649 pg/mL (232-1245)
== END 2024-12-27 09:57 | disposition home or self-care (01) ==
LOC: LAB 09:57
PROVIDERS: PCP Family Medicine; Visit Provider Family Medicine
DX: D50.9 Iron deficiency anemia, unspecified (principal); D64.9 Anemia, unspecified
CPT/HCPCS: 36415; 82607; 82728; 82746; 83540; 85025

== ENCOUNTER 2025-01-10 08:11 | Outpatient (RCR) | payer OTHER, SELFPAY ==
[2025-01-10 15:53] LABS: Basophils Percent Auto 0.5 % (0.2-2.0); Eosinophils Absolute Auto 0.3 10^3/uL (0.0-0.7); Eosinophils Percent Auto 3.5 % (0.9-7.0); Hematocrit 30.2 % (36.0-48.0); Hemoglobin 9.3 g/dL (12.0-16.0); Immature Granulocytes Abs Auto 0.02 10^3/uL (0.00-0.03); Immature Granulocytes Pct Auto 0.3 % (0.0-0.5); Lymphocytes Absolute Auto 1.3 10^3/uL (1.2-3.8); Lymphocytes Percent Auto 16.9 % (20.5-60.0); Mean Corpuscular HGB Conc 30.8 g/dL (29.9-35.2); Mean Corpuscular Hemoglobin 25.7 pg (26.7-34.0); Mean Corpuscular Volume 83.4 fL (81.0-99.0); Mean Platelet Volume 9.1 fL (9.5-13.5); Monocytes Absolute Auto 0.7 10^3/uL (0.3-0.8); Monocytes Percent Auto 8.5 % (1.7-12.0); Neutrophils Absolute Auto 5.4 10^3/uL (1.4-6.5); Neutrophils Percent Auto 70.3 % (43.0-75.0); Platelet Count 377 10^3/uL (150-450); Red Blood Count 3.62 10^6/uL (4.20-5.40); Red Cell Distribution Width 17.6 % (11.0-15.0); White Blood Count 7.7 10^3/uL (4.0-11.0)
[2025-01-10 15:54] LABS: Reticulocyte Pct Auto 0.94 % (0.60-3.10)
[2025-01-10 16:02] LABS: Anion Gap 10.7; BUN Creatinine Ratio 13.8; C Reactive Protein 2.81 mg/dL (<=0.50); Calcium 9.1 mg/dL (8.5-10.1); Carbon Dioxide 29.7 mmol/L (21.0-32.0); Chloride 105 mmol/L (98-107); Estimated GFR (African America 36 (>=60 mL/min/1.73m^2); Estimated GFR (Non-African Ame 30 (>=60 mL/min/1.73m^2); Glucose 119 mg/dL (74-106); Lactate Dehydrogenase 195 U/L (81-234); Potassium 4.4 mmol/L (3.5-5.1); Sodium 141 mmol/L (136-145)
[2025-01-10 16:03] LABS: Erythrocyte Sedimentation Rate 113 mm/hr (<=30)
[2025-01-12 05:07] LABS: Haptoglobin 363 mg/dL (37-355)
[2025-01-13 15:09] LABS: Albumin 2.6 g/dL (2.9-4.4); Alpha-1-Globulin 0.4 g/dL (0.0-0.4); Alpha-2-Globulin 1.1 g/dL (0.4-1.0); Free Kappa Lt Chains,S 57.6 mg/L (3.3-19.4); Free Lambda Lt Chains,S 66.9 mg/L (5.7-26.3); Gamma Globulin 1.2 g/dL (0.4-1.8); Immunoglobulin A, Qn, Serum 347 mg/dL (87-352); Immunoglobulin G, Qn, Serum 1147 mg/dL (586-1602); Immunoglobulin M, Qn, Serum 75 mg/dL (26-217); Kappa/Lambda Ratio,S 0.86 (0.26-1.65); Protein, Total 6.3 g/dL (6.0-8.5)
== END 2025-01-16 23:59 | disposition home or self-care (01) ==
LOC: HEMC 08:11
PROVIDERS: PCP Family Medicine; Visit Provider Internal Medicine Hematology & Oncology
DX: D64.9 Anemia, unspecified (principal); Z90.710 Acquired absence of both cervix and uterus; Z90.49 Acquired absence of other specified parts of digestive tract; N18.30 Chronic kidney disease, stage 3 unspecified; Z96.669 Presence of unspecified artificial ankle joint; I12.9 Hypertensive chronic kidney disease with stage 1 through stage 4 chronic kidney disease, or unspecified chronic kidney disease; E11.22 Type 2 diabetes mellitus with diabetic chronic kidney disease; Z79.84 Long term (current) use of oral hypoglycemic drugs
CPT/HCPCS: 36415; 80048; 82728; 82784; 83010; 83521; 83540; 83550; 83615; 84155; 84165; 85045; 85652; 86140; 86334; G0463

== ENCOUNTER 2025-02-08 12:43 | Outpatient (OUT) | payer OTHER, SELFPAY ==
--- NOTE | 2025-02-08 13:07 | CT_ITS ---
The [address] [address] Patient Name: VASU ABURTO MRN: [id number] date: 1965 Sex: F Assigned Patient Location: LAB Current Patient Location: LAB Accession/Order Number: [id number] Exam Date: 02/08/2025 14:13 Report Date: 02/08/2025 14:17 At the request of: CLIFF ALFARO MD Procedure: CT abdomen pelvis w con CT ABDOMEN AND PELVIS WITH INTRAVENOUS CONTRAST: CLINICAL HISTORY: Primary Anemia COMPARISON: None TECHNIQUE: Spiral images were obtained through the abdomen and pelvis following the administration of intravenous contrast. This CT exam was performed using one or more following dose reduction techniques: Automated exposure control, adjustment of the mA and/or kV according to patient size, or use of iterative reconstruction technique. FINDINGS: Lung Bases: [No acute process.] Organs:Gallbladder has been removed. Liver portal vein pancreas spleen and adrenal glands all appear unremarkable. No enhancing renal mass or hydronephrosis. Abdominal aorta appears normal in caliber.[ GI: Stomach is grossly unremarkable. Small bowel appears nondilated. Left colon diverticulosis.[ Pelvis:[Urinary bladder is grossly unremarkable. Uterus has been removed. No adnexal mass.] Peritoneum/Retroperitoneum:No free air or free fluid or lymphadenopathy.[ Abd wall/Bones:Abdominal wall demonstrates no acute findings. Osseous structures demonstrate degenerative change.[Disc spacers are noted involving the lumbar spine. CT/CT abdomen pelvis w con IMPRESSION: No acute findings. Impression dictated by: Trenton Manzo Jr., D.O. 02/08/2025 2:17 PM Dictation Location: [place] [address] Electronically authenticated by: [id number] Y Date: 02/08/2025 14:17
[2025-02-08 13:09] LABS: Blood Urea Nitrogen 39.0 mg/dL (7.0-18.0); Estimated GFR (African America 36 (>=60 mL/min/1.73m^2); Estimated GFR (Non-African Ame 30 (>=60 mL/min/1.73m^2)
== END 2025-02-08 12:44 | disposition home or self-care (01) ==
LOC: LAB 12:43
PROVIDERS: PCP Family Medicine; Visit Provider Internal Medicine Hematology & Oncology
DX: D64.9 Anemia, unspecified (principal)
CPT/HCPCS: 36415; 74177; 82565; 84520; Q9966

== ENCOUNTER 2025-02-28 07:21 | Outpatient (RCR) | payer OTHER, SELFPAY ==
[2025-02-28 12:31] LABS: Hematocrit 26.2 % (36.0-48.0); Hemoglobin 8.0 g/dL (12.0-16.0); Immature Granulocytes Abs Auto 0.01 10^3/uL (0.00-0.03); Immature Granulocytes Pct Auto 0.1 % (0.0-0.5); Lymphocytes Absolute Auto 1.1 10^3/uL (1.2-3.8); Mean Corpuscular HGB Conc 30.5 g/dL (29.9-35.2); Mean Corpuscular Hemoglobin 26.0 pg (26.7-34.0); Mean Corpuscular Volume 85.1 fL (81.0-99.0); Platelet Count 319 10^3/uL (150-450); Red Blood Count 3.08 10^6/uL (4.20-5.40); White Blood Count 7.5 10^3/uL (4.0-11.0)
[2025-02-28 13:21] LABS: Iron 32.0 ug/dL (50.0-170.0); Percent Iron Saturation 15.0 %; Total Iron Binding Capacity 214.0 ug/dL (250.0-450.0)
[2025-02-28 13:35] LABS: Ferritin 813.0 ng/mL (8.0-252.0)
[2025-02-28 13:59] LABS: Alanine Aminotransferase 16 U/L (14-59); Albumin Globulin Ratio 0.5; Albumin Level 2.5 g/dL (3.4-5.0); Alkaline Phosphatase 98 U/L (46-116); Anion Gap 9.2; Aspartate Amino Transferase 13 U/L (15-37); Blood Urea Nitrogen 43.0 mg/dL (7.0-18.0); Calcium 9.3 mg/dL (8.5-10.1); Carbon Dioxide 24.9 mmol/L (21.0-32.0); Chloride 105 mmol/L (98-107); Estimated GFR (African America 33 (>=60 mL/min/1.73m^2); Estimated GFR (Non-African Ame 27 (>=60 mL/min/1.73m^2); Globulin 4.9 g/dL; Glucose 151 mg/dL (74-106); Potassium 5.1 mmol/L (3.5-5.1); Sodium 134 mmol/L (136-145); Total Protein 7.4 g/dL (6.4-8.2)
== END 2025-03-19 23:59 | disposition home or self-care (01) ==
LOC: HEMC 07:21
PROVIDERS: PCP Family Medicine; Visit Provider Internal Medicine Hematology & Oncology
DX: D64.9 Anemia, unspecified (principal); I89.0 Lymphedema, not elsewhere classified; I12.9 Hypertensive chronic kidney disease with stage 1 through stage 4 chronic kidney disease, or unspecified chronic kidney disease; E11.22 Type 2 diabetes mellitus with diabetic chronic kidney disease; N18.30 Chronic kidney disease, stage 3 unspecified; Z90.710 Acquired absence of both cervix and uterus; Z90.49 Acquired absence of other specified parts of digestive tract; Z79.84 Long term (current) use of oral hypoglycemic drugs; Z96.669 Presence of unspecified artificial ankle joint
CPT/HCPCS: 36415; 80053; 82728; 83540; 83550; 85025; 85652; 86140; G0463

== ENCOUNTER 2025-04-04 11:08 | Outpatient (RCR) | payer OTHER, SELFPAY | END 2025-04-18 23:59 | disposition home or self-care (01) | LOC: HEMC 11:08 | PROVIDERS: PCP Family Medicine; Visit Provider Internal Medicine Hematology & Oncology | DX: D64.9 Anemia, unspecified (principal); Z90.49 Acquired absence of other specified parts of digestive tract; Z90.710 Acquired absence of both cervix and uterus; N18.30 Chronic kidney disease, stage 3 unspecified; Z96.669 Presence of unspecified artificial ankle joint ==

== ENCOUNTER 2025-04-12 13:51 | Outpatient (RCR) | payer OTHER, SELFPAY ==
[2025-04-12 14:00] VITALS: BP 171/72; PULSE 90; TEMP 35.7; O2SAT 97
[2025-04-12] MEDS: FERRIC CARBOXYMALTOSE 750 MG in 0.9 % SODIUM CHLORIDE 250 ML 795 MG IV (14:12)
== END 2025-04-18 23:59 | disposition home or self-care (01) ==
LOC: INF 13:51
PROVIDERS: PCP Family Medicine
DX: D50.9 Iron deficiency anemia, unspecified (principal)
CPT/HCPCS: 96365; J1439